=== PATIENT | male | born 1935 | race Caucasian/White ===

== ENCOUNTER 2025-04-02 21:29 | Inpatient (IN) | payer MEDICARE, BC, SELFPAY ==
[2025-04-02] VITALS (7 sets, daily range): BP systolic 117–138; BP diastolic 57–104; BMI 21.9; BMI 21.1
--- NOTE | 2025-04-02 17:03 | ED.GENMED ---
History of Present Illness
General
Chief Complaint: Change in Mental Status
Time Seen by Provider: 04/02/25 17:01
History of Present Illness
History of Present Illness:
FOCUSED PAST MEDICAL HISTORY
- The patient has history of dementia, pacemaker
REVIEW OF OLD RECORDS
- I did speak to EMS who tells me that the patient had room air sats of 89% but [facility] was more concerned about a change in mental status on top of his usual dementia. EMS placed him on 4 L/min of nasal cannula oxygen. I did review the
medication list and notes from [facility] which indicates the patient has been on Rocephin for bacteremia.
- I looked in Epic however there was no results since 2012
Note:
CHIEF COMPLAINT(S)
Lethargy and altered mental status.
HISTORY OF PRESENT ILLNESS
The patient is an 89-year-old male with a known history of dementia who was brought in by emergency medical services (EMS) for being more lethargic than usual. Per the EMS report, the patient was not previously on oxygen at his facility. Upon
arrival, his overall reduction in mental alertness was noted. The patient reportedly mentioned feeling surprised about something, although it was unclear, and no new specific symptoms were noted. He has a past medical history of heart failure and
chronic obstructive pulmonary disease (COPD). The patients oxygen saturation levels were within acceptable limits, so oxygen therapy was withheld at this time.
ADDITIONAL HISTORY OBTAINED FROM SOURCES OTHER THAN THE PATIENT
According to EMS, the patient presented as more lethargic than usual, has dementia, and was not previously on oxygen at his facility.
CHRONIC MEDICAL CONDITIONS SIGNIFICANTLY AFFECTING CARE
- Dementia
- Heart failure
- Chronic obstructive pulmonary disease (COPD)
PHYSICAL EXAM
GENERAL: The patient is chronically ill in appearance, he is tachypneic
HEENT: Moist oral mucosa
CARDIOVASCULAR: Regular rate and rhythm
PULMONARY: The patient has at least mild respiratory distress sinus tachycardia, Rales heard anteriorly more on the right
ABDOMEN: Soft and nontender with no peritoneal signs
NEUROLOGIC: The patient has evidence of dementia, not oriented to month or place, strength is equal in all extremities
EXTREMITIES: Moves all extremities equally, no tenderness, no edema
PSYCHIATRIC: Very limited historian, poor insight and judgment, virtually no spontaneous but can follow some simple commands
PROBLEM LIST
Acute Issues:
- Lethargy
- Altered mental status
Chronic Problems:
- Dementia
- Heart failure
- Chronic obstructive pulmonary disease (COPD)
PLAN
- Monitor oxygen saturation and continue to withhold supplemental oxygen for now as the patient is not in distress.
- Plan to obtain an electrocardiogram (ECG) to assess cardiac function.
- Review history for potential factors contributing to altered mental status and implement supportive care as needed.
- ABG
- Chest x-ray and also obtain cultures as patient was recently bacteremic based on group home records
DIFFERENTIAL DIAGNOSIS
The Differential Diagnosis includes, in no particular order and is not limited to:
- Acute exacerbation of chronic obstructive pulmonary disease (COPD)
- Pneumonia
- Congestive heart failure exacerbation
- Urinary tract infection
- Metabolic disturbances (e.g., electrolyte imbalance)
- Cerebral vascular accident (stroke)
- Medication side effects
- Sepsis
- Dehydration
- Progression of dementia
SUMMARY OF ENCOUNTER
The patient, an 89-year-old male with a history of dementia, heart failure, and chronic obstructive pulmonary disease, presented with increased lethargy and altered mental status. He was noted to be breathing rapidly upon arrival. Initial thoughts
were of CO2 retention due to COPD, but a blood gas sample ruled this out. A chest x-ray revealed a right-sided pleural effusion, and past medical history indicated this has been a recurrent issue, with thoracentesis previously performed. The patient
was not on strong anticoagulants currently, though he was previously on warfarin. Imaging studies including a CT scan of the brain and a chest x-ray were ordered to further assess his condition. The patient was coming from a different facility and
there was no available access to past medical records from [facility] [place]. He was evaluated to determine the next steps in management, with the potential for interventional radiology to perform a thoracentesis being considered.
DISPOSITION
Admit.
ASSESSMENT
The patient presented with rapid breathing and increased lethargy. Chest x-ray findings of a right-sided pleural effusion and history of similar issues suggest a probable need for intervention. Given his presentation and existing health conditions,
the plan is to admit the patient for further observation and management, including a possible thoracentesis by interventional radiology.
MANAGEMENT OF THE PATIENTS CARE WAS DISCUSSED WITH
Hospitalist doctor was contacted to discuss the patient�s admission and further management plan.
PLAN
The plan is to admit the patient for continued monitoring and possible thoracentesis. Consultation with interventional radiology is considered for the next day. Further evaluation of his pleural effusion and continued assessment of his overall
health status will be managed by the hospital team.
MEDICATION RECONCILIATION
The patients medication list was briefly reviewed, indicating that he was on clopidogrel and ceftriaxone via a PICC line, but not on warfarin despite previous prescriptions noted.
MEDICAL DECISION MAKING
-Complexity of Data Reviewed: Chronic conditions affecting care include dementia, heart failure, and COPD. Differentials include metabolic disturbances, medication side effects, and progression of existing conditions.
-Data:
Category 1
Clinical information was obtained from an independent historian. External records were reviewed for past medication usage and recent thoracentesis history.
Category 2
My independent interpretation of the chest x-ray noted a right-sided pleural effusion.
Category 3
Discussion of management was held with the hospitalist regarding patients admittance and potential thoracentesis.
-Risk:
Consideration of Admission/Observation: Escalation of care including admission/observation was considered given the complexity and risk of the patients presenting complaint, exam findings, and/or their underlying comorbidities. However, ultimately I
feel the patient is safe for inpatient management given the current findings and intended interventions for the pleural effusion. Prescription medication management involved ensuring no current use of warfarin that would complicate a potential
thoracentesis.
DIAGNOSIS
Right-sided pleural effusion (ICD-10: J90)
Dementia, unspecified (ICD-10: F03.90)
RADIOLOGY
- Chest x-ray shows right pleural effusion
EKG
- V paced 80
LABS
- White count normal, hemoglobin 11.1, pH 7.47/44/71/32, potassium 3.1
On reassessment, family feels that he is close to his mental status. He remains to be somewhat tachypneic which I suspect is related to pleural effusions. The right pleural effusion is larger than the left and is loculated on the right. Recommend
he stay in the hospital paracentesis as this has helped him in the past.
Phy Exam
Physical Exam
Physical Exam:
See HPI
Course
Orders/Labs/Results
Orders:
Orders
04/02/25 17:01
Venous Blood Gas Urgent
%Oxygen/Room Air: 4lpm
04/02/25 17:02
CR Chest Portable - 1 View Urgent
Comment:
Reason For Exam: alt MS hypoxia
Reason Study Needs to be Portable: Unable to Transport
04/02/25 17:06
Complete Blood Count/With Diff Urgent
Comprehensive Metabolic Panel Urgent
04/02/25 17:31
Lactic Acid Q4H
Comment: CANCEL 2nd LACTIC ACID IF 1st LACTIC ACID IS LESS THAN 2
Blood Culture Q30M
MARC Source: Blood/Venous
Specimen Description:
Blood Culture Q30M
MARC Source: Blood/Venous
Specimen Description:
04/02/25 18:06
ABG [Arterial Blood Gas] Urgent
%Oxygen/Room Air: RA
04/02/25 18:13
CT Head W/o Iv Contrast Urgent
Comment:
Reason For Exam: alt ms
Potassium Chloride Powder [Klor-Con] 40 meq PO NOW STA
04/02/25 18:14
CT Chest W/o Iv Contrast Urgent
Comment:
Reason For Exam: eval pleural effusion hypoxia
04/02/25 18:59
Alteplase [Cathflo/Activase] 2 mg INTRACATH NOW STA
04/02/25 20:09
Electrocardiogram (*1) Urgent
Reason for Study: Palpitations
EKG- Treatment ONCE
04/02/25 20:57
Admit/Transfer Patient As Directed
Co-Sign Provider:
Level of Care: Inpatient admission
Assign to:: Telemetry
Physician / Group: Tanmay
Diagnosis: Hypoxemia, Pleural Effusion
Reason for Telemetry: Arrhythmia
Date to Stop Telemetry: 04/05/25
Time to Stop Telemetry: 11:00
Reason for Hospitalization: Hypoxemia, Pleural Effusion
Expected length of stay greater than two midnights?: Yes
ELOS- Estimated Length of Stay in days: 4
I certify the patient meets the requirements for IP care: Yes
04/02/25 20:58
PRN Pain Medication Management As Directed
May give lesser potent ordered pain med per pt: Yes
preference::
Protocol:: Medication orders for pain may be administered in a
manner that supports deferring to patient preference
when the pt is:
- Requesting an ordered lesser potent pain medication.
Least to most potent pain medications are defined
as: acetaminophen < NSAID < tramadol < opioids
(morphine, oxycodone, hydromorphone).
- Requesting a lesser dose of the same medication IF
ORDERED.
- Requesting a less intrusive route of administration
if both routes are prescribed by the provider (PO <
IV).
04/02/25 21:01
Code Status As Directed
Resuscitation Status: Full Code
04/02/25 21:16
US Periph Venous UPPER Ext RT Urgent
Comment:
Reason For Exam: Asymmetric Edema
04/05/25 11:00
DC Protocol for Telemetry ONCE
Abnormal Lab Results
04/02/25 04/02/25
17:06 18:06
RBC 4.09 L 10^6/uL
(4.70-6.10)
Hgb 11.1 L g/dL
(13.0-18.0)
Hct 35.5 L %
(39.0-52.0)
MCHC 31.3 L g/dL
(33.0-37.0)
RDW 24.3 H %
(11.5-14.5)
Absolute Lymphs (auto) 1.0 L 10^3/uL
(1.2-3.4)
Lymphocytes % 16.7 L %
(20.5-51.1)
Monocytes % 9.5 H %
(1.7-9.3)
pH 7.47 H
(7.35-7.45)
pO2 71 L mmHg
(83-108)
HCO3 32.0 H mmol/L
(21-28)
Potassium 3.1 L mmol/L
(3.5-5.1)
Carbon Dioxide 32 H mmol/L
(22-30)
Glucose 114 H mg/dl
(70-99)
Total Protein 6.0 L g/dl
(6.3-8.2)
Albumin 3.1 L g/dl
(3.5-5.0)
04/02/25 17:06
04/02/25 17:06
Vital Signs
Initial and Last Documented VS:
Initial Vital Signs
Temp Pulse BP Pulse Ox
36.4 C 78 117/104 92
04/02/25 17:06 04/02/25 17:06 04/02/25 17:06 04/02/25 17:06
Last Documented Vital Signs
Temp Pulse Resp BP Pulse Ox
36.4 C 75 23 130/68 99
04/02/25 17:06 04/02/25 21:00 04/02/25 21:00 04/02/25 21:00 04/02/25 20:45
*Pulse Oximetry
Patient hypoxic: no
*Critical Care Note
Total Time (30-74mins, 75-104mins- exclusive of procedures): Not Applicable
ED Attending Note
-
Portions of this chart may have been created with voice recognition software.� Occasional wrong word or��sound alike� substitutions may have occurred due to the inherent limitations of voice recognition software.
Discharge Plan
Interventions
Interventions:
*Risk Screen - Suicide Last Done: 04/02/25 17:45
*General Assessment Last Done: 04/02/25 17:45
*Neglect/Abuse Screening Last Done: 04/02/25 17:45
*ED- Fall Risk Assessment Last Done: 04/02/25 21:15
ED- Neurological Assessment Last Done: 04/02/25 17:36
[2025-04-02 17:54] LABS: Hematocrit 35.5 % (39.0-52.0); Hemoglobin 11.1 g/dL (13.0-18.0); Mean Corp Hgb Conc. 31.3 g/dL (33.0-37.0); Mean Corpuscular Volume 86.8 fL (80.0-94.0); Nucleated Red Blood Cells % 0 % (-); Platelet Count 220 10^3/uL (130-400); Red Cell Dist. Width 24.3 % (11.5-14.5)
[2025-04-02 17:59] LABS: ALT (SGPT) 18 U/L (0-50); AST (SGOT) 48 U/L (17-59); Albumin 3.1 g/dl (3.5-5.0); Alkaline Phosphatase 61 U/L (38-126); Blood Urea Nitrogen 11 mg/dl (9-20); Calcium 8.6 mg/dl (8.4-10.2); Carbon Dioxide 32 mmol/L (22-30); Chloride 104 mmol/L (98-107); Estimated Creatinine Clearance 48 ml/min; Glucose 114 mg/dl (70-99); Potassium 3.1 mmol/L (3.5-5.1); Sodium 138 mmol/L (135-145); Total Protein 6.0 g/dl (6.3-8.2); eGFR > 60.00
[2025-04-02 18:15] LABS: B.E. 7.5 mmol/L; HCO3 32.0 mmol/L (21-28); O2 Saturation % 95.8 % (94-98); PCO2 44 mmHg (35-48); PO2 71 mmHg (83-108)
--- NOTE | 2025-04-02 18:25 | VATNOTE ---
Patient with tunneled central line in right chest. Patient unsure of where line was placed. CXR shows CVC in good position. Both lumens flush well, but unable to get blood return from either lumen. Recommend MD radha aware via TT.
[2025-04-02] MEDS: CATHFLO/ACTIVASE 2 MG INTRACATH (20:09)
--- NOTE | 2025-04-02 21:05 | HPS.HSE ---
Family Physician
-
Family Physician: Kehinde Berger
Chief Complaint
-
Lethargy, hypoxemia
History of Present Illness
Patient is an 89y M with PMH significant for ASCVD, CHF, CKD and dementia who presents to ED from local [place] for evaluation of lethargy and hypoxemia. History obtained from ED staff / patient / review of record. Patient was recently admitted at
[facility] for prolonged stay for 'bacteremia'. Daughter states that he initially presented in volume overload / CHF exacerbation and was then discovered to have bacteremia. Patient was discharged to [facility] on 03/29 on extensive
abx regimen of ampicillin 2g IV q6 and ceftriaxone 2g IV BID.
NH staff states that today he seemed more lethargic. He was noted to have SpO2 in the 80s.
CXR in the ED shows R pleural effusion.
Medical History
Past Medical History
Past Medical History: Reports Other
Additional Past Medical History:
ASCVD (CAD, Carotid Disease, PAD)
CHF - Unknown Type
Hypertension
Paroxysmal Atrial Fibrillation
CKD III
Pulmonary Fibrosis
DM-II
Senile Dementia
GERD
COPD
Past Surgical History: Reports Other
Additional Past Surgical History:
PPM / AICD (bilateral - both still in place)
Social History
Unable to obtain full social history at this time due to: Dementia
Family History
Family History: Unable to Obtain
Allergies / Home Medications
Allergies reflects when Allergies were last updated in [email or web address].
Home Medications with original date entered in [email or web address]
Allergy/Medication List:
Allergies
Allergy/AdvReac Type Severity Reaction Status Date / Time
aspirin Allergy Unknown Unknown Verified 04/02/25 17:45
bee venom protein (honey bee) Allergy Unknown Unknown Verified 04/02/25 17:45
Fish Containing Products Allergy Unknown Unknown Verified 04/02/25 17:45
linaclotide (From Linzess) Allergy Unknown Unknown Verified 04/02/25 17:45
fish derived Allergy Unknown Verified 04/02/25 17:45
fish oil Allergy Unknown Verified 04/02/25 17:45
Home Medications
acetaminophen 325 mg tablet (Tylenol) 650 mg PO Q4HPRN PRN mild pain 04/02/25
albuterol sulfate 90 mcg/actuation aerosol inhaler 2 puff inhalation R Q4HPRN PRN sob 04/02/25
ampicillin sodium 2 gram intravenous solution 2 g IV Q4H 04/02/25
bisacodyl 10 mg rectal suppository (Dulcolax (bisacodyl)) 10 mg FL DAILYPRN PRN if no bm aftr mom 04/02/25
calcium 500 mg (as carbonate)-vitamin D3 10 mcg (400 unit) tablet (Calcium 500 + D) 1 tab PO DAILY 04/02/25
carvedilol 3.125 mg tablet (Coreg) 3.125 mg PO BID 04/02/25
ceftriaxone 2 gram intravenous solution 2 g IV BID 04/02/25
clopidogrel 75 mg tablet (Plavix) 75 mg PO DAILY 04/02/25
finasteride 5 mg tablet 5 mg PO DAILY 04/02/25
furosemide 40 mg tablet (Lasix) 40 mg PO DAILY 04/02/25
lubiprostone 8 mcg capsule 8 mcg PO MOWEFR@0800,1900 04/02/25
lubiprostone 8 mcg capsule 8 mcg PO SUTUTHSA@1000 04/02/25
magnesium hydroxide 400 mg/5 mL oral suspension (Milk of Magnesia) 2,400 mg PO [id number] PRN constipation 04/02/25
menthol 0.44 %-zinc oxide 20.6 % topical ointment (Moisture Barrier Ointment) 1 applic topical TID b/l buttock 04/02/25
mirtazapine 7.5 mg tablet 7.5 mg PO HS 04/02/25
pantoprazole 40 mg tablet,delayed release (Protonix) 40 mg PO DAILY 04/02/25
rosuvastatin 20 mg tablet (Crestor) 20 mg PO HS 04/02/25
sennosides 8.6 mg tablet (senna) 17.2 mg PO DAILY 04/02/25
sodium phosphates 19 gram-7 gram/118 mL enema (Fleet Enema) 118 ml FL DAILYPRN PRN if no bm aftr dulcoalx 04/02/25
tamsulosin 0.4 mg capsule (Flomax) 0.4 mg PO HS 04/02/25
therapeutic multivitamin 1 tab PO DAILY 04/02/25
tiotropium bromide 18 mcg capsule with inhalation device 1 cap inhalation R DAILY 04/02/25
Review of Systems
-
Unable to obtain full review of systems at this time due to: Dementia
History Source: Patient
Respiratory: Reports Trouble Breathing; Denies Cough
Cardiac: Denies Chest Pain
Abdomen/GI: Denies Abdominal Pain, Nausea, Vomiting or Diarrhea
Neurological: Denies Headache
Psych: Denies Depression or Anxiety
Physical Exam
Vital Signs
Vital Signs
Temp Pulse Resp BP Pulse Ox
97.6 F 75 23 130/68 99
04/02/25 17:06 04/02/25 21:00 04/02/25 21:00 04/02/25 21:00 04/02/25 20:45
Physical Exam
General: Other (89y M with tachypnea.)
HEENT: Moist mucous membranes and PERRLA
Respiratory: Other (Decreased BS bilaterally. No wheeze / rales / rhonchi.)
Cardiac: S1/S2, Regular Rhythm and Murmur (II/ JONN)
GI: Soft, Non Tender, Non Distended and Normal Bowel Sounds
Musculoskeletal: No Clubbing, No Cyanosis and Other (Edema of the RUE specifically.)
Neuro: Awake, Alert and Nonfocal/grossly intact; No Oriented
Hematologic/Lymphatic: Other (R IJ central catheter in place.)
Laboratory Results
-
04/02/25 17:06
04/02/25 17:06
Laboratory Results
pH 7.47 (7.35-7.45) H 04/02/25 18:06
pCO2 44 mmHg (35-48) 04/02/25 18:06
pO2 71 mmHg (83-108) L 04/02/25 18:06
HCO3 32.0 mmol/L (21-28) H 04/02/25 18:06
Lactic Acid Cancelled 04/02/25 21:15
Total Bilirubin 0.6 mg/dl (0.2-1.3) 04/02/25 17:06
AST 48 U/L (17-59) 04/02/25 17:06
ALT 18 U/L (0-50) 04/02/25 17:06
Alkaline Phosphatase 61 U/L (38-126) 04/02/25 17:06
Impression/Plan
-
A/P: Patient is an 89y M with PMH significant for ASCVD, dementia, CHF and recent hospitalization for bacteremia who presents to ED from local [place] for evaluation of altered mental status and lethargy.
Acute Hypoxemic Respiratory Insufficiency
R > L Pleural Effusion
Acute on Chronic HF - Unknown Type
- Admit for further evaluation and treatment.
- Afebrile and no cough, etc.
- Supportive care / O2 support overnight.
- IR eval in AM for thoracentesis - fluid orders placed.
- Suspect effusion secondary to CHF / volume overload - but rule out parapneumonic / infected fluid with recent bacteremia, etc.
- Continue current antibiotics for now.
- IV Lasix BID and follow I/Os, daily weights, etc.
- Obtain recent records from [facility] for review - check Echo if none done during that admission.
- Follow for clinical improvement.
Bacteremia
- Unclear details of bacteremia.
- ? related to implanted cardiac devices as patient has bilateral PPM / AICD - leads and generators - in place.
- Continue current ampicillin and ceftriaxone for now.
- Obtain records / cultures from [facility] for review.
Hypokalemia
- Replaced orally in the ED. Continue potassium supplement daily and adjust as needed.
ASCVD
- Stable. No chest pain.
- Continue Plavix, statin, etc.
Paroxysmal A-Fib
- Currently in 100% paced rhythm.
- Not on OAC - though was apparently on Coumadin in the past.
- Monitor on tele.
- Obtain prior records as noted.
CKD III
- Obtain prior records for baseline SCr.
- Follow for any changes with diuresis.
DM-II
- Follow glucose and cover with SSI as needed.
- Update A1C.
BPH
- Continue current tamsulosin / finasteride.
- Bladder scan protocol.
Senile Dementia
- Awake and alert at present. Some confusion but not agitated or anxious.
- Monitor for agitation / delirium during acute hospital stay.
DVT Prophylaxis: Subcut Heparin
Code Status: Full
--- NOTE | 2025-04-02 23:38 | VATNOTE ---
cathflo instilled @ 2009 for NO blood return from either lumen. Dwelled for 1 hr and then good blood return after. Dsg changed per protocol since was due to be changed today by facility & pt was to be admitted; unsure of when PICC was inserted.
[2025-04-03] VITALS (10 sets, daily range): BP systolic 75–138; BP diastolic 44–84; PULSE 75–79; O2SAT 96; BMI 21.1; BMI 21.0
[2025-04-03] MEDS: REMERON 7.5 MG PO (00:11)
[2025-04-03] MEDS: AMPICILLIN 108 MG IV ×4 (00:12→16:43)
[2025-04-03] MEDS: FLOMAX 0.4 MG PO (00:12)
[2025-04-03] MEDS: CRESTOR 20 MG PO (00:12)
[2025-04-03 00:19] LABS: LDH 376 U/L (120-246); Total Protein 5.8 g/dl (6.3-8.2)
[2025-04-03 00:43] LABS: Glucose - Point of Care 82 mg/dl (70-99)
[2025-04-03 04:58] LABS: ALT (SGPT) 15 U/L (0-50); AST (SGOT) 36 U/L (17-59); Albumin 2.6 g/dl (3.5-5.0); Alkaline Phosphatase 58 U/L (38-126); Blood Urea Nitrogen 11 mg/dl (9-20); Calcium 8.5 mg/dl (8.4-10.2); Carbon Dioxide 32 mmol/L (22-30); Chloride 105 mmol/L (98-107); Estimated Creatinine Clearance 45 ml/min; Glucose 83 mg/dl (70-99); Magnesium 2.1 mg/dl (1.6-2.3); Potassium 3.0 mmol/L (3.5-5.1); Sodium 138 mmol/L (135-145); Total Protein 5.2 g/dl (6.3-8.2); eGFR > 60.00
[2025-04-03 05:09] LABS: Hematocrit 30.7 % (39.0-52.0); Hemoglobin 9.4 g/dL (13.0-18.0); Mean Corp Hgb Conc. 30.6 g/dL (33.0-37.0); Mean Corpuscular Volume 85.5 fL (80.0-94.0); Platelet Count 192 10^3/uL (130-400); Red Cell Dist. Width 23.9 % (11.5-14.5)
[2025-04-03 05:51] LABS: Glucose - Point of Care 72 mg/dl (70-99)
[2025-04-03 09:41] LABS: Glucose - Point of Care 103 mg/dl (70-99)
[2025-04-03] MEDS: ROCEPHIN 2000 MG IV (09:56)
[2025-04-03] MEDS: STERILE WATER FOR INJECTION 20 ML IV (09:56)
[2025-04-03] MEDS: PROTONIX 40 MG PO (09:57)
[2025-04-03] MEDS: SENOKOT 17.2 MG PO (09:57)
[2025-04-03] MEDS: PLAVIX 75 MG PO (09:57)
[2025-04-03] MEDS: PROSCAR 5 MG PO (09:58)
[2025-04-03] MEDS: KLOR-CON 20 MEQ PO (09:58)
[2025-04-03] MEDS: LASIX 40 MG IV ×2 (09:58→16:43)
[2025-04-03] MEDS: COREG 3.125 MG PO (09:58)
[2025-04-03 09:59] LABS: Glycohemoglobin (HgbA1c) 5.6 % (4.0-5.6)
[2025-04-03] MEDS: HEPARIN 5000 UNITS SC (09:59)
--- NOTE | 2025-04-03 10:31 | CON.CAR ---
Addendum entered and electronically signed by Jaertt St MD 04/03/25 15:05:
I saw and examined the patient.
The CREDIT ASSOCIATE or PA's note was reviewed and I agree with the note.
Comment: General: Well developed, well nourished in NAD.
Neck: Supple, no JVD, HJR, carotids +2 B/L, no bruits bilaterally.
Heart: Non displaced PMI, RRR, no murmurs, No S3, S4, no rubs.
Lungs: Scattered rhonchi
Extremities: No clubbing, cyanosis or edema bilaterally.
Neuro: Grossly nonfocal, awake, alert and oriented x3.
Hua has a history of dementia, CAD, PAD, CHF, pacer/ICD, hypertension, A-fib, renal sufficiency, pulmonary fibrosis, type 2 diabetes, COPD. He was admitted at [facility] recently with bacteremia and CHF. He was discharged to [facility]. He was admitted on April 02, 2025 with change in mental status and reduced pulse oximetry. In ER chest x-ray consistent with CHF with moderate right pleural effusion and also there was concern for pneumonia. Cardiology is consulted
for CHF. He is unable to give a history due to dementia
Will treat for CHF with IV Lasix. He is for thoracentesis as well. Will check echocardiogram. Try to get records from outpatient cardiology.
Original Note:
Consultation
Consultation Request
Date/Time Consultation Requested: 04/03/2025
Date/Time Consultation Performed: 04/03/2025
Requesting Provider: Dr. Coates
Performing Provider: Jessica Gupta PA-C for Dr. St
Medical History
-
History of Present Illness:
Patient is an 89-year-old male with past medical history of dementia, coronary artery disease, PAD, heart failure with unknown ejection fraction, pacemaker/ICD, hypertension, paroxysmal atrial fibrillation, chronic kidney disease, pulmonary
fibrosis, type 2 diabetes, COPD and dementia who was recently at [facility] for bacteremia and heart failure. He was discharged to [facility] 03/29/25 on antibiotic regimen of ampicillin 2g IV q6 and ceftriaxone 2g IV BID. On
04/02/2025 staff noted patient to have change in mental status, lethargy and reduced pulse oximetry prompting them to call 911. Patient arrived to emergency department on 4 L of oxygen via nasal cannula. Chest x-ray showed moderate right pleural
effusions, moderate bilateral airspace disease concerning for pneumonia and increased interstitial markings concerning for pulmonary edema. CT of chest showed moderate bilateral pleural effusions right greater than left, pulmonary fibrosis, mild
bronchiectasis. Head CT showed no acute intracranial abnormality with moderate atrophy and small vessel disease. EKG showed ventricular paced rhythm. Found to be hypokalemic with potassium of 3.1
Patient very poor historian/demented and unable to provide any meaningful history. I did reach out to his Johanna [phone] but phone went directly to [facility] and [facility] for her
PMH:
Coronary artery disease
Carotid disease
Peripheral arterial disease
Heart failure with unknown ejection fraction
Pacemaker/ICD
Hypertension
Paroxysmal atrial fibrillation
COPD
Chronic kidney disease stage III
Pulmonary fibrosis
Type 2 diabetes
Dementia
GERD
COPD
Admission March 2025 for bacteremia [facility]
Past Medical History
Past Medical History: Other (See HPI)
Past Surgical History: Cardiac (Pacemaker, defibrillator)
Social History
Tobacco: Former Smoker
Alcohol: Occasional
Drug: None
Personal:
Living: Other (Lived with until recent admission now at [facility])
Family History
Family History: Unable to Obtain
Allergies / Home Medications
Allergy/AdvReac Type Severity Reaction Status Date / Time
aspirin Allergy Unknown Unknown Verified 04/02/25 17:45
bee venom protein (honey bee) Allergy Unknown Unknown Verified 04/02/25 17:45
Fish Containing Products Allergy Unknown Unknown Verified 04/02/25 17:45
linaclotide (From Linzess) Allergy Unknown Unknown Verified 04/02/25 17:45
fish derived Allergy Unknown Verified 04/02/25 17:45
fish oil Allergy Unknown Verified 04/02/25 17:45
�Medication �Instructions �Recorded �Confirmed �Type
acetaminophen 325 mg tablet 650 mg PO Q4HPRN PRN mild pain 04/02/25 04/02/25 History
(Tylenol)
albuterol sulfate 90 mcg/actuation 2 puff inhalation R Q4HPRN PRN sob 04/02/25 04/02/25 History
aerosol inhaler
ampicillin sodium 2 gram 2 g IV Q4H Infection 04/02/25 04/02/25 History
intravenous solution
bisacodyl 10 mg rectal suppository 10 mg OR DAILYPRN PRN if no bm 04/02/25 04/02/25 History
(Dulcolax (bisacodyl)) aftr mom
calcium 500 mg (as 1 tab PO DAILY Supplement 04/02/25 04/02/25 History
carbonate)-vitamin D3 10 mcg (400
unit) tablet (Calcium 500 + D)
carvedilol 3.125 mg tablet (Coreg) 3.125 mg PO BID Blood Pressure 04/02/25 04/02/25 History
ceftriaxone 2 gram intravenous 2 g IV BID Infection 04/02/25 04/02/25 History
solution
clopidogrel 75 mg tablet (Plavix) 75 mg PO DAILY Blood Clot 04/02/25 04/02/25 History
Prevention/Tx
finasteride 5 mg tablet 5 mg PO DAILY Urinary Issue 04/02/25 04/02/25 History
furosemide 40 mg tablet (Lasix) 40 mg PO DAILY Fluid 04/02/25 04/02/25 History
Retention/Swelling
lubiprostone 8 mcg capsule 8 mcg PO MOWEFR@0800,1900 04/02/25 04/02/25 History
Gastrointestinal Issue
lubiprostone 8 mcg capsule 8 mcg PO SUTUTHSA@1000 04/02/25 04/02/25 History
Gastrointestinal Issue
magnesium hydroxide 400 mg/5 mL 2,400 mg PO [id number] PRN 04/02/25 04/02/25 History
oral suspension (Milk of Magnesia) constipation
menthol 0.44 %-zinc oxide 20.6 % 1 applic topical TID b/l buttock 04/02/25 04/02/25 History
topical ointment (Moisture Barrier
Ointment)
mirtazapine 7.5 mg tablet 7.5 mg PO HS Mental Health/Anxiety 04/02/25 04/02/25 History
pantoprazole 40 mg tablet,delayed 40 mg PO DAILY Gastrointestinal 04/02/25 04/02/25 History
release (Protonix) Issue
rosuvastatin 20 mg tablet (Crestor) 20 mg PO HS High Cholesterol 04/02/25 04/02/25 History
sennosides 8.6 mg tablet (senna) 17.2 mg PO DAILY Gastrointestinal 04/02/25 04/02/25 History
Issue
sodium phosphates 19 gram-7 118 ml OR DAILYPRN PRN if no bm 04/02/25 04/02/25 History
gram/118 mL enema (Fleet Enema) aftr dulcoalx
tamsulosin 0.4 mg capsule (Flomax) 0.4 mg PO HS Transplant 04/02/25 04/02/25 History
therapeutic multivitamin 1 tab PO DAILY Supplement 04/02/25 04/02/25 History
tiotropium bromide 18 mcg capsule 1 cap inhalation R DAILY 04/02/25 04/02/25 History
with inhalation device Lung/Breathing Issues
Review of Systems
-
Unable to obtain full review of systems at this time due to: Dementia
History Source: Coordinating Provider
Physical Exam
Vital Signs
Temp Pulse Resp BP Pulse Ox
97.5 F 82 16 138/69 98
04/03/25 08:13 04/03/25 08:13 04/03/25 08:13 04/03/25 08:13 04/03/25 08:13
GEN: No distress, awake, oriented to self only, sitting in chair on oxygen
HEENT: supple, anicteric, mmm
LUNGS: Absent breath sounds from base to mcfp up on right, absent breath sounds at left base, overall reduced breath sounds bilaterally, currently wearing 2 L of oxygen
CV: Reg, S1/S2,3/6 blowing murmur LSB/apex loudest
ABD: soft, BS+, NT/ND
EXT: No edema, clubbing or cyanosis
NEURO: Demented, only oriented to self
SKIN: No rash
Lab Results
04/03/25 04:19
04/03/25 04:19
Impression / Plan
-
Family Physician: Kehinde Berger
Impression:
Presented 04/02/2025 with change in mental status, lethargy, shortness of breath
Hypoxemia
Bilateral pleural effusions right greater than left
Possible Acute heart failure with unknown ejection fraction
Hypokalemia
Recent admission to [facility] for heart failure, bacteremia sent to [facility] 03/29/2025
Coronary artery disease
Carotid disease
Peripheral arterial disease
Heart failure with unknown ejection fraction
Pacemaker/ICD
Hypertension
Paroxysmal atrial fibrillation
Chronic kidney disease stage III
COPD
Pulmonary fibrosis
Type 2 diabetes
Dementia
GERD
COPD
Echo 04/03/2025: ordered
Plan:
Patient is an 89-year-old male who presents to [facility] ED 04/02/2025 with change in mental status, shortness of breath, lethargy from [facility]. Recent admission to [facility] for bacteremia
Hypoxemia, found to have bilateral pleural effusions right greater than left.
- Originally plan was for thoracentesis with IR today. Placed on hold as patient unable to provide consent
- Continue IV diuresis
- Currently requiring 2 L of oxygen wean as able
Chronic heart failure with unknown ejection fraction
- ProBNP 2990. Patient has decreased breath sounds bilaterally with known pleural effusions. He has no evidence of lower extremity edema. Unclear baseline weight.
- Continue diuresis IV Lasix 40 mg twice daily. Patient was on Lasix 40 mg daily prior to admission
- Would check echocardiogram
- EKG shows ventricular paced rhythm. Patient has cardiac device on both right and left upper chest. Unclear make or model
- Patient unable to provide history as to who is his maintenance helper utility engineer. Phone call has been placed to patient's , Johanna [phone] but went directly to voicemail. Left voicemail for patient's to call back
Admission to [facility] for bacteremia earlier this month. Unclear details. Per jail
- patient currently has PICC line with ongoing antibiotic regimen of regimen of ampicillin 2g IV q6 and ceftriaxone 2g IV BID.
- Obtain records from [facility]
Data Reviewed
-
EKG: Report Reviewed by me, Discussed with Physician, Discussed with Nurse and Discussed with Patient
Radiology: Report Reviewed by me, Discussed with Physician, Discussed with Nurse and Discussed with Patient
CT Scan: Report Reviewed by me, Discussed with Physician, Discussed with Nurse and Discussed with Patient
Labs: Labs Reviewed by me, Discussed with Physician, Discussed with Nurse and Discussed with Patient
Old Records: Requested ([facility])
[2025-04-03] MEDS: KCL 40 MEQ PO ×2 (10:40→16:42)
[2025-04-03 10:43] LABS: LDH 358 U/L (120-246); Total Protein 5.7 g/dl (6.3-8.2)
--- NOTE | 2025-04-03 11:49 | W.PN.HOSP.TC ---
Today's Communication/Plan
-
Diuresis. Echocardiogram. Cardio and ID eval
Assessment / Plan
Assessment / Plan
Physical exam:
General: Acutely ill
HEENT: Normocephalic, Atraumatic and Moist Mucous Membranes
Respiratory: Decreased breath sounds bilateral right more than left; Few crackles heard; Negative Wheezes or Rhonchi
Cardiac: Regular Rhythm and S1/S2. Right central access with IJ in place
GI: Soft, Nontender and Nondistended
Musculoskeletal: No Clubbing, No Cyanosis and No Edema
Neuro: Awake, Alert and Disoriented, no gross neurological deficit
Psych: Calm
A/P:
A/P: Patient is an 89y M with PMH significant for ASCVD, dementia, CHF and recent hospitalization for bacteremia who presents to ED from local [place] for evaluation of altered mental status and lethargy.
Acute Hypoxemic Respiratory Insufficiency
R > L Pleural Effusion
Acute on Chronic HF - Unknown Type
- Admit for further evaluation and treatment.
- Afebrile and no cough, etc.
- Supportive care / O2 support overnight.
- IR eval today and unable to sign consent so we will need to be postponed until we are able to get a hold of the family.
- Suspect effusion secondary to CHF / volume overload - but rule out parapneumonic / infected fluid with recent bacteremia, etc.
- Continue current antibiotics for now.
- IV Lasix BID and follow I/Os, daily weights, etc.
- Obtain recent records from [facility] for review - check Echo if none done during that admission.
- Follow for clinical improvement.
- Cardiology consulted today on 04/03
- Called 's number on records but get connected yet.
Bacteremia
- Unclear details of bacteremia.
- ? related to implanted cardiac devices as patient has bilateral PPM / AICD - leads and generators - in place.
- Continue current ampicillin and ceftriaxone for now.
- Obtain records / cultures from [facility] for review.
- ID consulted today on 04/03
Hypokalemia
- Replaced orally in the ED. Continue potassium supplement daily and adjust as needed.
- Replete orally again today.
ASCVD
- Stable. No chest pain.
- Continue Plavix, statin, etc.
Paroxysmal A-Fib
- Currently in 100% paced rhythm.
- Not on OAC - though was apparently on Coumadin in the past.
- Monitor on tele.
- Obtain prior records as noted.
CKD III
- Obtain prior records for baseline SCr.
- Follow for any changes with diuresis.
DM-II
- Follow glucose and cover with SSI as needed.
- Update A1C.
BPH
- Continue current tamsulosin / finasteride.
- Bladder scan protocol.
Senile Dementia
- Awake and alert at present. Some confusion but not agitated or anxious.
- Monitor for agitation / delirium during acute hospital stay.
DVT Prophylaxis: Subcut Heparin
Code Status: Full
Total time spent on today's encounter was 55 minutes which included time spent in counseling the patient/family regarding diagnosis and treatment plan as listed above, goals of care, and symptom management. Case was discussed with nursing staff,
specialists, and care coordinators/case management. All labs and imaging personally reviewed by me. Remainder the time spent in detailed review of previous records, lab data, imaging, and other medical provider documentation.
Anticipated Discharge: > 48 hours
Subjective/Interval History
-
Date of Service: April 03, 2025
Patient denies worsening shortness of breath. Currently on 2 L of oxygen. Afebrile. Alert but disoriented.
Objective Data
-
Labs:
Laboratory Results
04/03/25
04:19
WBC 5.0
Hgb 9.4 L
Hct 30.7 L
Plt Count 192
Sodium 138
Potassium 3.0 L
Chloride 105
Carbon Dioxide 32 H
BUN 11
Creatinine 1.0
Glucose 83
Calcium 8.5
Total Bilirubin 0.6
AST 36
ALT 15
Alkaline Phosphatase 58
Vital Signs:
Vital Signs
Temp Pulse Resp BP Pulse Ox
97.4 F 60 20 133/65 97
04/03/25 11:04 04/03/25 11:04 04/03/25 11:04 04/03/25 11:04 04/03/25 11:04
I&O
04/02/25 04/03/25 04/04/25
06:59 06:59 06:59
Intake Total 200 / 200 240 / 240
Output Total 550 / 550
Balance -350 / -350 240 / 240
[2025-04-03] MEDS: TYLENOL 650 MG PO (13:41)
[2025-04-03 13:43] LABS: Glucose - Point of Care 166 mg/dl (70-99)
--- NOTE | 2025-04-03 14:08 | CON.ID ---
Consultation
-
Date/Time Consultation Requested: April 03, 2025 [id number]
Date/Time Consultation Performed: April 03, 2025 1410
Requesting Provider: Dr. Wiley Coates
Performing Provider: Dr. Moon Hendrickson
Reason for Consultation: Bacteremia
Chief Complaint / Past History
Chief Complaint
Lethargy
History of Present Illness
History obtained from review of medical records since patient has dementia and unable to provide a meaningful history. He is a 89-year-old male with history of diabetes mellitus, CAD, ischemic cardiomyopathy status post ICD placement, pacemaker
placement who presented from intermediate facility on April 02 secondary to hypoxia and decreased mental status. Patient reportedly was recently hospitalized at [facility] with volume overload, CHF exacerbation. He was
bacteremic placed on IV ampicillin plus ceftriaxone. He was discharged to [facility] March 29. Patient noted to have increased lethargy. His pulse ox was in the 80s. Patient therefore sent to the ER. Chest x-ray showed right pleural
effusion. CT of the chest showed moderate bilateral pleural effusions, right larger than left.
Past History
Additional Past Medical History:
Dementia
Hypertension
Diabetes mellitus
CAD
Paroxysmal atrial fibrillation
CHF
Pacemaker placement
ICD placement
COPD
PAD
Pulmonary fibrosis
CKD 3
BPH
Allergy History:
aspirin Allergy (Unknown, Verified 04/02/25 17:45)
Unknown
bee venom protein (honey bee) Allergy (Unknown, Verified 04/02/25 17:45)
Unknown
Fish Containing Products Allergy (Unknown, Verified 04/02/25 17:45)
Unknown
linaclotide (From Linzess) Allergy (Unknown, Verified 04/02/25 17:45)
Unknown
fish derived Allergy (Verified 04/02/25 17:45)
Unknown
fish oil Allergy (Verified 04/02/25 17:45)
Unknown
Medications Reviewed: Yes
Current Antibiotics:
Ampicillin 2 g IV every 6 hours
Ceftriaxone 2 g IV every 12 hours
Social History
Tobacco: Former Smoker
Alcohol: None
Drug: None
Personal:
Living: Detention
Family History
Family History: Not Pertinent
Review of Systems
Review of Systems
Unable to obtain due to dementia.
Vital Signs
Temp Pulse Resp BP Pulse Ox
97.4 F 60 20 133/65 97
04/03/25 11:04 04/03/25 11:04 04/03/25 11:04 04/03/25 11:04 04/03/25 11:04
Physical Exam
Physical Exam
Constitutional: Chronically Ill
Eyes: No Conjunctival Hemorrhage and Sclera Anicteric
Cardiovascular: Regular Rate, S1/S2 and Other (PPM/ICD no erythema)
Pulmonary: Other (Decreased breathe sound at bases)
Gastrointestinal: Soft, Non Tender and Non Distended
Genito-Urinary: Negative CVA Tenderness
Extremities: Edema (BLE)
Neurological: Awake
Lines: PICC (RUE no erythema)
Lab / Diagnostic Study Results
04/03/25 04:19
04/03/25 04:19
Abs Immat Gran (auto) 0.0 10^3/uL (0-0.05) 04/02/25 17:06
Absolute Neuts (auto) 4.4 10^3/uL (1.4-6.5) 04/02/25 17:06
Absolute Lymphs (auto) 1.0 10^3/uL (1.2-3.4) L 04/02/25 17:06
Absolute Monos (auto) 0.6 10^3/uL (0.1-0.6) 04/02/25 17:06
Absolute Basos (auto) 0.0 10^3/uL (0-0.2) 04/02/25 17:06
Immature Gran % 0.3 % (0-0.5) 04/02/25 17:06
Neutrophils % 71.9 % (42.2-75.2) 04/02/25 17:06
Lymphocytes % 16.7 % (20.5-51.1) L 04/02/25 17:06
Monocytes % 9.5 % (1.7-9.3) H 04/02/25 17:06
Eosinophils % 1.3 % (0-6) 04/02/25 17:06
Basophils % 0.3 % (0-2) 04/02/25 17:06
Lactic Acid Cancelled 04/02/25 21:15
Microbiology Results
Micro:
04/03/25 00:45 MRSA Screen - Pending
Nose
04/03/25 00:37 Blood Culture - Pending
Blood/Venous
04/02/25 23:39 Blood Culture - Pending
Blood/Venous
04/02/25 17:31 Blood Culture - Pending
Blood/Venous
04/02/25 17:31 Blood Culture - Pending
Blood/Venous
04/02/25 CT chest: Moderate bilateral pleural effusions, right larger than left. Loculated on the right. Mild pulmonary fibrosis, mild bronchiectasis and moderate atelectasis versus scarring.
04/02/25 CXR: Moderate right pleural effusion. Moderate bilateral airspace disease concerning for pneumonia. Mild prominence of the central vasculature and interstitial markings concerning for pulmonary edema.
Assessment / Plan
# Bacteremia at [facility]
- Suspect Enterococcus faecalis based on current antibiotics pt receiving
- ? PPM/ICD/mentasta valve endocarditis based on current abx's
- Medical record from [facility] requested
- For TTE here
- Continue Ampicillin 2g IV q6 (renally adjusted from q4) and ceftriaxone 2g IV q12. End date unclear. Need record from outside hospital.
# Acute on chronic CHF
# Bilateral pleural effusion
- Thoracentesis today
- TTE
Conditions present on admission:
Dementia
Hypertension
Diabetes mellitus
CAD
Paroxysmal atrial fibrillation
Pacemaker placement
Ischemic cardiomyopathy s/p ICD placement
COPD
PAD
Pulmonary fibrosis
CKD 3
BPH
[2025-04-03 15:41] LABS: Body Fluid Second Tech EYM
--- NOTE | 2025-04-03 16:10 | CARDSERVLU ---
Echocardiogram with [facility] completed after protocol screening completed. Allergies verified.
Patent IV site: __L Wrist___
IV site flushed with 0.9% NaCl pre and post administration.
Diluted bolus method utilized to enhance visualization of ventricular pruitt.
Total volume given: __1.5__ mL
Patient tolerated all procedures well without complications.
[2025-04-03 17:00] LABS: Glucose - Point of Care 107 mg/dl (70-99)
[2025-04-03] MEDS: STERILE WATER FOR INJECTION IV (21:40)
[2025-04-03] MEDS: COREG PO (21:40)
[2025-04-03] MEDS: ROCEPHIN IV (21:40)
[2025-04-03] MEDS: HEPARIN SC (21:40)
--- NOTE | 2025-04-03 21:43 | PTCARENOTE ---
Despite multiple attempts patient refused nighttime medications. METAL BUILDING ASSEMBLER Anatoly Mcduffie notified. Will attempt to give medications again throughout the night
[2025-04-04] MEDS: AMPICILLIN IV (00:15)
[2025-04-04] MEDS: CRESTOR PO (02:23)
[2025-04-04] MEDS: REMERON PO (02:23)
[2025-04-04] MEDS: FLOMAX PO (02:23)
[2025-04-04 03:55] VITALS: BP 108/49
[2025-04-04] MEDS: AMPICILLIN 108 MG IV ×3 (04:27→17:19)
[2025-04-04 04:53] LABS: Hematocrit 30.5 % (39.0-52.0); Hemoglobin 9.3 g/dL (13.0-18.0); Mean Corp Hgb Conc. 30.5 g/dL (33.0-37.0); Mean Corpuscular Volume 85.4 fL (80.0-94.0); Platelet Count 198 10^3/uL (130-400); Red Cell Dist. Width 23.9 % (11.5-14.5)
[2025-04-04 05:26] LABS: Blood Urea Nitrogen 12 mg/dl (9-20); Calcium 8.5 mg/dl (8.4-10.2); Carbon Dioxide 34 mmol/L (22-30); Chloride 105 mmol/L (98-107); Estimated Creatinine Clearance 45 ml/min; Glucose 87 mg/dl (70-99); Magnesium 2.1 mg/dl (1.6-2.3); Potassium 3.2 mmol/L (3.5-5.1); Sodium 139 mmol/L (135-145); eGFR > 60.00
[2025-04-04] MEDS: STERILE WATER FOR INJECTION 20 ML IV ×2 (05:49→21:19)
[2025-04-04] MEDS: ROCEPHIN 2000 MG IV ×2 (05:50→21:19)
[2025-04-04 07:49] LABS: Anisocytosis 1+
[2025-04-04 07:50] LABS: Acanthocytes 1+
[2025-04-04 07:57] LABS: Glucose - Point of Care 87 mg/dl (70-99)
[2025-04-04 08:00] VITALS: BP 136/73
[2025-04-04] MEDS: HEPARIN 5000 UNITS SC ×2 (08:16→21:18)
[2025-04-04] MEDS: LASIX 40 MG IV ×2 (08:18→15:50)
[2025-04-04] MEDS: KLOR-CON 20 MEQ PO (08:22)
[2025-04-04] MEDS: TYLENOL 650 MG PO (08:22)
[2025-04-04] MEDS: PROTONIX 40 MG PO (08:22)
[2025-04-04] MEDS: SENOKOT 17.2 MG PO (08:23)
[2025-04-04] MEDS: PLAVIX 75 MG PO (08:24)
[2025-04-04] MEDS: COREG 3.125 MG PO ×2 (08:25→21:18)
[2025-04-04] MEDS: PROSCAR 5 MG PO (08:25)
--- NOTE | 2025-04-04 09:19 | W.PN.CARDCBS ---
Addendum entered and electronically signed by Jarett St MD 04/04/25 14:41:
I saw and examined the patient.
The FINANCIAL SECRETARY or PA's note was reviewed and I agree with the note.
Comment: General: Well developed, well nourished in NAD.
Neck: Supple, no JVD, HJR, carotids +2 B/L, no bruits bilaterally.
Heart: Non displaced PMI, RRR, no murmurs, No S3, S4, no rubs.
Lungs: Scattered rhonchi
Extremities: No clubbing, cyanosis or edema bilaterally.
Neuro: Awake but confused
He has had significant weight loss but remains on oxygen. Will continue IV Lasix. Await records to determine what type of device patient has as he is followed by [place] [facility].
Original Note:
Today's Communication / Plan
-
Ongoing diuresis
Impression / Plan
-
Family Physician: Kehinde Berger
Impression:
Presented 04/02/2025 with change in mental status, lethargy, shortness of breath
Hypoxemia
Bilateral pleural effusions right greater than left
s/p 1.5 L removed by right sided thoracentesis 04/03/2025
Acute HFrEF
EF 37%, unknown if ischemic or nonischemic and unknown chronicity
Hypokalemia
Recent admission to [facility] for heart failure, bacteremia sent to [facility] 03/29/2025
Coronary artery disease
Carotid disease
Peripheral arterial disease
Heart failure with unknown ejection fraction
Pacemaker/ICD
Hypertension
Paroxysmal atrial fibrillation
Chronic kidney disease stage III
COPD
Pulmonary fibrosis
Type 2 diabetes
Dementia
GERD
COPD
Moderate AAS with mean gradient 16 mmHg by echo 04/03/2025
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
Echo 04/03/2025: EF 37%, moderate with mean gradient 16 mmHg and ARIANNE 1.2 cm sq, mild concentric LVH, mild TR, moderate to severe MR with dense MAC
Plan:
-Patient is an 89-year-old male who presents to [facility] ED 04/02/2025 with change in mental status, shortness of breath, lethargy from [facility]. Recent admission to [facility] for bacteremia
-Weight is down 7 lbs if recorded bed scale weight is accurate. Dry weight unknown
-Patient diuresing with Lasix 40 mg IV BID. Patient was taking Lasix 40 mg PO daily prior to admission
-Patient had 1.5 L of straw-colored fluid removed during right sided thoracentesis on 04/03/2025
-EF 37% by echo 04/03/2025 along with moderate and moderate to severe MR. It is unknown what his baseline EF is, we have requested and continue to await records from his admission to [facility] 2-3 weeks ago.
-Outpatient dose of Coreg 3.125 mg BID has been continued
-Patient is not chronically on MAHESH/ARB/ARNI or aldosterone antagonist for unclear reasons. No obvious allergies, but could be due to hypotension based on current VS
-Patient has cardiac device that could be PPM, ICD or a METROLOGY SPECIALIST device, we have not been able to get a hold of records from [facility] yet. Will check device once we know with the brand is.
-Patient is at [facility] receiving IV antibiotics including ampicillin and ceftriaxone following admission with bacteremia at [facility] earlier this month. ID suspects it could be Enterococcus based on the antibiotics that are being
given and that it may involve the patient's cardiac device or valvular heart disease again based on the type of antibiotics that are currently being used. As noted above echo did not show obvious vegetation.
Progress Note - Life Educator
Subjective
Date of Service: April 04, 2025
Denies chest pain
Objective
Labs:
04/04/25 04:26
04/04/25 04:26
Labs
Hgb 9.3 g/dL (13.0-18.0) L 04/04/25 04:26
Hct 30.5 % (39.0-52.0) L 04/04/25 04:26
Plt Count 198 10^3/uL (130-400) 04/04/25 04:26
Sodium 139 mmol/L (135-145) 04/04/25 04:26
Potassium 3.2 mmol/L (3.5-5.1) L 04/04/25 04:26
BUN 12 mg/dl (9-20) 04/04/25 04:26
Creatinine 1.0 mg/dL (0.7-1.3) 04/04/25 04:26
Glucose 87 mg/dl (70-99) 04/04/25 04:26
Vital Signs and I&O:
Vital Signs
Temp Pulse Resp BP Pulse Ox
98.3 F 76 18 136/73 97
04/04/25 08:00 04/04/25 08:00 04/04/25 08:00 04/04/25 08:00 04/04/25 08:00
Vital Signs
Temp Pulse Resp BP Pulse Ox
98.3 F 76 18 136/73 97
04/04/25 08:00 04/04/25 08:00 04/04/25 08:00 04/04/25 08:00 04/04/25 08:00
Intake & Output
04/02/25 04/03/25 04/04/25 04/05/25
06:59 06:59 06:59 06:59
Intake Total 200 / 200 1536 / 1536
Output Total 550 / 550 750 / 750
Balance -350 / -350 786 / 786
Physical Exam
Physical Exam
GEN: NAD
LUNGS: RA. Decreased BS right worse than left.
CV: SR on tele
--- NOTE | 2025-04-04 09:49 | PN.CDI ---
CDI
- -
CDI:
Physician Documentation Request
Admit Date: 04/02/25 21:29
Dear Doctor Coates,
Please review the following and provide your response in the progress notes.
Clinical Indicators:
Pt admitted with CHF exacerbation
Documented per Nursing wound care note 04/02 , ' Present on admission bilateral heel pressure injury stage 1 ...treatment foams...Present on admission sacrum pressure injury stage 1 ...treatment provided silicone border..'
Physician documentation of the type and location of wounds is required for compliant documentation. Based on the above clinical findings and your assessment, please provide the following in your progress note:
1. Location of the ulcer/wound, including laterality.( FOR EACH WOUND)
2. Type (etiology) of ulcer/wound:
- Pressure (decubitus) ulcer
- Non-pressure ulcer
- Other ( please specify)
Use of terms such as suspected, likely, concern for, or probable (associated with a specific diagnosis that is being evaluated, monitored, or treated as if it exists) are acceptable and can be coded in the inpatient setting, when documented at the
time of discharge.
Thank you,
Denae Guzman RN
CDI Specialist
[place] [facility]
Please use your independent medical judgment in providing your response.
*Source: National Pressure Ulcer Advisory Panel (NPUAP)
--- NOTE | 2025-04-04 10:12 | CM ---
Addendum entered by Deedee Ferrer 04/04/25 14:46:
Patient seen in person on . Patient resting and no family at bedside. CM called to patient to review prior living arrangements, left requesting call back. Per chart review patient previously at SNF for Short term care. Patient
updated liaison at [facility] that she plans to take patient home when medically appropriate. CM will complete assessment when able to discuss with patient .
Plan; SNF; when medically appropriate.
Addendum entered by Deedee Ferrer 04/04/25 14:10:
tentatively [facility] agreed to accept patient wednesday. physician aware.
Addendum entered by Deedee Ferrer 04/04/25 12:02:
Liaison from [facility] called back with questions about status of patient, Liaison calling patient to confirm next steps.
Original Note:
CM received a call from patient requesting referral and admission to [facility]. CM spoke with liaison Miriam and referral sent via all scripts. CM will continue to follow for discharge planning needs.
[2025-04-04 10:34] LABS: Normal RBC Morphology No
--- NOTE | 2025-04-04 11:34 | W.PN.HOSP.TC ---
Addendum entered and electronically signed by Wiley Coates MD 04/04/25 15:04:
HX of CKD 3 only
Addendum entered and electronically signed by Wiley Coates MD 04/04/25 12:47:
Present on admission sacrum pressure injury stage 1
Addendum entered and electronically signed by Wiley Coates MD 04/04/25 12:47:
Present on admission bilateral heel pressure injury stage 1
Original Note:
Today's Communication/Plan
-
IV diuresis. IV Antibiotics
Assessment / Plan
Assessment / Plan
Physical exam:
General: Acutely ill
HEENT: Normocephalic, Atraumatic and Moist Mucous Membranes
Respiratory: Decreased breath sounds bilaterally; Negative Wheezes, Rales or Rhonchi
Cardiac: Regular Rhythm and S1/S2, systolic murmur
GI: Soft, Nontender and Nondistended
Musculoskeletal: No Clubbing, No Cyanosis and No Edema
Neuro: Awake, Alert and Disoriented, no neurological deficit
Psych: Limited judgment and insight
A/P:
Acute systolic congestive heart failure/ Moderate aortic stenosis and moderate to severe mitral valve regurgitation and mild tricuspid regurgitation:
Continue IV Lasix 40 mg twice a day
Reviewed echocardiogram
Requesting old medical records
BNP over 2990
GDMT--> on carvedilol only 3.125 mg twice a day. Defer to cardiology other GDMT medications.
Cardiology consult appreciated
Update TSH in a.m.
Hemoglobin A1c 5.6
Discussed with over the phone today
PT OT eval
Hypokalemia:
Replete and trend
Acute respiratory insufficiency:
Diuresis
Oxygen supplementation as needed
Bacteremia:
On IV ampicillin and ceftriaxone
ID consult appreciated
Bilateral pleural effusions R>L:
Status post right thoracentesis on 04/03
Metabolic encephalopathy, POA:
Likely multifactorial including delirium, recent hospitalizations, infection, heart failure.
Blood gas with no hypercapnia
CT of the head no acute intracranial abnormalities
Continue to monitor mental status and behavior
Paroxysmal A-fib:
Continue beta-blockers
Not on anticoagulation
PPM in place
COPD:
Bronchodilators as needed
CAD/PVD:
On antiplatelets and statins
Hypertension:
Continue current antihypertensive
Hyperlipidemia:
Continue statin
Dementia Alzheimer's type:
Continue to monitor mental status and behavior
GERD:
On PPI
BPH:
On Flomax and finasteride
DVT prophylaxis:
Heparin SQ
CODE STATUS:
Full code
Total time spent on today's encounter was 55 minutes which included time spent in counseling the patient/family regarding diagnosis and treatment plan as listed above, goals of care, and symptom management. Case was discussed with nursing staff,
specialists, and care coordinators/case management. All labs and imaging personally reviewed by me. Remainder the time spent in detailed review of previous records, lab data, imaging, and other medical provider documentation.
Anticipated Discharge: 24 - 48 hours
Subjective/Interval History
-
Date of Service: April 04, 2025
Patient still short of breath and required supplemental oxygen. No chest pain. Afebrile
Objective Data
-
Labs:
Laboratory Results
04/04/25
04:26
WBC 6.0
Hgb 9.3 L
Hct 30.5 L
Plt Count 198
Sodium 139
Potassium 3.2 L
Chloride 105
Carbon Dioxide 34 H
BUN 12
Creatinine 1.0
Glucose 87
Calcium 8.5
Vital Signs:
Vital Signs
Temp Pulse Resp BP Pulse Ox
98.3 F 76 18 136/73 97
04/04/25 08:00 04/04/25 08:00 04/04/25 08:00 04/04/25 08:00 04/04/25 08:00
I&O
04/03/25 04/04/25 04/05/25
06:59 06:59 06:59
Intake Total 200 / 200 1536 / 1536
Output Total 550 / 550 750 / 750
Balance -350 / -350 786 / 786
[2025-04-04 12:10] VITALS: BP 96/44
[2025-04-04 12:16] LABS: Glucose - Point of Care 103 mg/dl (70-99)
--- NOTE | 2025-04-04 12:18 | W.PN.ID1 ---
Date of Service
Date of Service: April 04, 2025
Today's Communication
Awaiting outside records.
Continue Amp/ceftriaxone.
Assessment / Plan
# Bacteremia at [facility]
- Suspect Enterococcus faecalis based on current antibiotics pt receiving
- ? PPM/ICD/[place] valve endocarditis based on current abx's
- Awaiting Medical record from [facility]
- TTE pending
- Continue Ampicillin 2g IV q6 (renally adjusted from q4) and ceftriaxone 2g IV q12. End date unclear. Need record from outside hospital.
# Acute on chronic CHF
# Bilateral pleural effusion
- 04/03 s/p R thoracentesis 1500cc straw colored fluid -> transudate.
Conditions present on admission:
Dementia
Hypertension
Diabetes mellitus
CAD
Paroxysmal atrial fibrillation
Pacemaker placement
Ischemic cardiomyopathy s/p ICD placement
COPD
PAD
Pulmonary fibrosis
CKD 3
BPH
Chief Complaint
-: Bacteremia
Subjective / Review of Systems
c/o MOONEY left greater than right.
Vital Signs / Physical Exam
Vital Signs
Vital Signs
Temp Pulse Resp BP Pulse Ox
97.6 F 89 18 96/44 95
04/04/25 12:10 04/04/25 12:10 04/04/25 08:00 04/04/25 12:10 04/04/25 12:10
Physical Exam
Constitutional: Chronically Ill
Cardiovascular: Regular Rate, S1/S2 and Other (bilateral chest wall PPM and AICD sites no erythema)
Pulmonary: Rales (bases)
Gastrointestinal: Soft, Non Tender, Non Distended and Normal Bowel Sounds
Neurological: Awake; Negative Meningeal Signs
Lines: PICC (RIJ tunneled double lumen PICC - no erythema)
Objective Data
Lab Data
Lab Results
04/04/25 04:26
04/04/25 04:26
Estimated Creat Clear 45 ml/min 04/04/25 04:26
Lactic Acid Cancelled 04/02/25 21:15
Total Bilirubin 0.6 mg/dl (0.2-1.3) 04/03/25 04:19
AST 36 U/L (17-59) 04/03/25 04:19
ALT 15 U/L (0-50) 04/03/25 04:19
Alkaline Phosphatase 58 U/L (38-126) 04/03/25 04:19
Most recent labs reviewed.
Micro Results:
04/03/25 14:52 Body Fluid Culture - Preliminary
Pleural Fluid No Growth After 18-24 Hours
Gram Stain - Preliminary
04/03/25 00:45 MRSA Screen - Final
Nose No Methicillin Resistant Staphylococcus aureus isolated.
04/03/25 00:37 Blood Culture - Preliminary
Blood/Venous No Growth in 24 hours- Final report to follow
04/02/25 23:39 Blood Culture - Preliminary
Blood/Venous No Growth in 24 hours- Final report to follow
04/02/25 17:31 Blood Culture - Preliminary
Blood/Venous No Growth in 24 hours- Final report to follow
04/02/25 17:31 Blood Culture - Preliminary
Blood/Venous No Growth in 24 hours- Final report to follow
04/02/25 CT chest: Moderate bilateral pleural effusions, right larger than left. Loculated on the right. Mild pulmonary fibrosis, mild bronchiectasis and moderate atelectasis versus scarring.
04/02/25 CXR: Moderate right pleural effusion. Moderate bilateral airspace disease concerning for pneumonia. Mild prominence of the central vasculature and interstitial markings concerning for pulmonary edema.
[2025-04-04 14:49] LABS: Nucleated Red Blood Cells % 0 % (-)
--- NOTE | 2025-04-04 14:50 | PN.CDI ---
CDI
- -
CDI:
Physician Documentation Request
Admit Date: 04/02/25 21:29
Dear Doctor Aminata,
Please review the following and provide your response in the progress notes.
Clinical Indicators:
Pt admitted with Acute systolic CHF
Documented in 04/03 progress note, ' CKD III Obtain prior records for baseline SCr....'
Renal function as below
Laboratory Tests
04/02/25 04/03/25 04/04/25
17:06 04:19 04:26
Creatinine 1.0 1.0 1.0
eGFR > 60.00 > 60.00 > 60.00
Please provide a diagnosis for the above renal functions/findings:
HX of CKD 3 only
CKD 3
CKD stage 2
Other ( please specify)
Stages of Chronic Kidney Disease*
Level Description GFR
G1 Normal or High >90
G2 Mildly decreased 60-89
G3a Mildly to moderately decreased 45-59
G3b Moderately to severely decreased 30-44
G4 Severely decreased 15-29
G5 Kidney failure <15
Use of terms such as suspected, likely, concern for, or probable (associated with a specific diagnosis that is being evaluated, monitored, or treated as if it exists) are acceptable and can be coded in the inpatient setting, when documented at the
time of discharge.
Thank you,
Denae Guzman RN
CDI Specialist
[place] Text
Please use your independent medical judgment in providing your response.
*Source: Kidney Disease: Improving Global Outcomes (KDIGO) 2012
[2025-04-04 15:59] VITALS: BP 110/52
[2025-04-04 17:02] LABS: Glucose - Point of Care 102 mg/dl (70-99)
[2025-04-04 20:13] VITALS: BP 110/78
[2025-04-04] MEDS: FLOMAX 0.4 MG PO (21:17)
[2025-04-04] MEDS: CRESTOR 20 MG PO (21:17)
[2025-04-04] MEDS: REMERON 7.5 MG PO (21:17)
[2025-04-04 21:55] LABS: Glucose - Point of Care 107 mg/dl (70-99)
[2025-04-04 23:31] VITALS: BP 106/51
[2025-04-05] VITALS (8 sets, daily range): BP systolic 95–137; BP diastolic 40–108; PULSE 78; O2SAT 99; BMI 20.2
[2025-04-05] MEDS: AMPICILLIN 108 MG IV ×4 (00:40→18:02)
[2025-04-05 04:16] LABS: Hematocrit 28.5 % (39.0-52.0); Hemoglobin 9.0 g/dL (13.0-18.0); Mean Corp Hgb Conc. 31.6 g/dL (33.0-37.0); Mean Corpuscular Volume 85.6 fL (80.0-94.0); Platelet Count 159 10^3/uL (130-400); Red Cell Dist. Width 23.7 % (11.5-14.5)
[2025-04-05 04:24] LABS: Nucleated Red Blood Cells % 0 % (-)
[2025-04-05 04:35] LABS: Blood Urea Nitrogen 14 mg/dl (9-20); Calcium 8.5 mg/dl (8.4-10.2); Carbon Dioxide 34 mmol/L (22-30); Chloride 103 mmol/L (98-107); Estimated Creatinine Clearance 39 ml/min; Glucose 99 mg/dl (70-99); Magnesium 2.1 mg/dl (1.6-2.3); Potassium 3.0 mmol/L (3.5-5.1); Sodium 138 mmol/L (135-145); eGFR > 60.00
[2025-04-05] MEDS: LASIX 40 MG IV ×2 (08:00→15:14)
[2025-04-05] MEDS: STERILE WATER FOR INJECTION 20 ML IV ×2 (08:00→19:44)
[2025-04-05] MEDS: HEPARIN 5000 UNITS SC ×2 (08:00→19:40)
[2025-04-05] MEDS: ROCEPHIN 2000 MG IV ×2 (08:00→19:45)
[2025-04-05] MEDS: PLAVIX 75 MG PO (08:03)
[2025-04-05] MEDS: PROTONIX 40 MG PO (08:03)
[2025-04-05] MEDS: SENOKOT 17.2 MG PO (08:03)
[2025-04-05] MEDS: PROSCAR 5 MG PO (08:03)
[2025-04-05] MEDS: COREG 3.125 MG PO ×2 (08:04→19:41)
[2025-04-05] MEDS: KLOR-CON 20 MEQ PO (08:05)
[2025-04-05 08:32] LABS: Glucose - Point of Care 81 mg/dl (70-99)
--- NOTE | 2025-04-05 10:51 | W.PN.HOSP.TC ---
Today's Communication/Plan
-
Diuresis. Antibiotics
Assessment / Plan
Assessment / Plan
Physical exam:
General: Acutely ill
HEENT: Normocephalic, Atraumatic and Moist Mucous Membranes
Respiratory: Decreased breath sounds bilaterally; Negative Wheezes, Rales or Rhonchi
Cardiac: Regular Rhythm and S1/S2, systolic murmur
GI: Soft, Nontender and Nondistended
Musculoskeletal: No Clubbing, No Cyanosis and No Edema
Neuro: Awake, Alert and Disoriented, no neurological deficit
Psych: Limited judgment and insight
A/P:
Acute systolic congestive heart failure/ Moderate aortic stenosis and moderate to severe mitral valve regurgitation and mild tricuspid regurgitation:
Continue IV Lasix 40 mg twice a day and will transition to oral tomorrow
Reviewed echocardiogram
Requesting old medical records
BNP over 2990
GDMT--> on carvedilol only 3.125 mg twice a day. Defer to cardiology other GDMT medications.
Cardiology consult appreciated
Update TSH and came back normal limits at 1.61
Hemoglobin A1c 5.6
Discussed with over the phone yesterday
PT OT eval
Hypokalemia:
Replete and trend
Acute respiratory insufficiency:
Diuresis
Oxygen supplementation as needed
E faecalis bacteremia:
On IV ampicillin and ceftriaxone-->through 04/15
No gross vegetations
ID consult appreciated
Bilateral pleural effusions R>L:
Status post right thoracentesis on 04/03
Metabolic encephalopathy, POA:
Likely multifactorial including delirium, recent hospitalizations, infection, heart failure.
Blood gas with no hypercapnia
CT of the head no acute intracranial abnormalities
Continue to monitor mental status and behavior
Paroxysmal A-fib:
Continue beta-blockers
Not on anticoagulation
PPM in place
COPD:
Bronchodilators as needed
CAD/PVD:
On antiplatelets and statins
Hypertension:
Continue current antihypertensive
Hyperlipidemia:
Continue statin
Dementia Alzheimer's type:
Continue to monitor mental status and behavior
GERD:
On PPI
BPH:
On Flomax and finasteride
DVT prophylaxis:
Heparin SQ
CODE STATUS:
Full code
Time spent 35 minutes
Anticipated Discharge: Within 24 hours
Subjective/Interval History
-
Date of Service: April 05, 2025
Patient feels less short of breath. Still on supplemental oxygen. Afebrile
Objective Data
-
Labs:
Laboratory Results
04/05/25 04/05/25
03:52 03:53
WBC 5.4
Hgb 9.0 L
Hct 28.5 L
Plt Count 159
Sodium 138
Potassium 3.0 L
Chloride 103
Carbon Dioxide 34 H
BUN 14
Creatinine 1.1
Glucose 99
Calcium 8.5
Vital Signs:
Vital Signs
Temp Pulse Resp BP Pulse Ox
97.4 F 76 18 115/58 95
04/05/25 07:40 04/05/25 07:40 04/05/25 07:40 04/05/25 07:40 04/05/25 07:40
I&O
04/04/25 04/05/25 04/06/25
06:59 06:59 06:59
Intake Total 1536 / 1536 1176 / 1176
Output Total 750 / 750 550 / 550
Balance 786 / 786 626 / 626
[2025-04-05] MEDS: KCL 40 MEQ PO ×2 (10:59→15:14)
--- NOTE | 2025-04-05 11:05 | W.PN.ID1 ---
Date of Service
Date of Service: April 05, 2025
Today's Communication
- Continue Ampicillin 2g IV q6 and ceftriaxone 2g IV q12 through 04/15/25.
Assessment / Plan
# E. faecalis bacteremia at [facility]
- Still awaiting Medical record from [facility]
- I called Infectious Disease Office at [facility] and requested last progress note from ID.
Records reviewed and placed in patient's paper chart.
Admitted to hospital 03/03/25 with SOB, moderate to large bilateral pleural effusion s s/p IR-guided R thoracentesis -> cx neg
Admission blood cultures x 2: Enterococcus faecalis bacteremia.
Source of bacteremia unclear. 03/09/25 ZA no vegetations on valves nor cardiac device wires. CT a/p; cholelithiasis without cholecystitis.
ID recommended ampicillin 2gIV q6h and ceftriaxone 2g IV q12h x 6 weeks , stop date 04/16/25.
- TTE here no gross vege, EF 37%, mod to severe regurgitation.
- Continue Ampicillin 2g IV q6 and ceftriaxone 2g IV q12 through 04/15/25.
- Follow-up with ID group at [facility].
# Acute on chronic CHF
# Bilateral pleural effusion
- 04/03 s/p R thoracentesis 1500cc straw colored fluid -> transudate.
Cx negative.
Conditions present on admission:
Dementia
Hypertension
Diabetes mellitus
CAD
Paroxysmal atrial fibrillation
Pacemaker placement
Ischemic cardiomyopathy s/p ICD placement
COPD
PAD
Pulmonary fibrosis
CKD 3
BPH
Chief Complaint
-: Bacteremia
Vital Signs / Physical Exam
Vital Signs
Vital Signs
Temp Pulse Resp BP Pulse Ox
97.4 F 76 18 115/58 95
04/05/25 07:40 04/05/25 07:40 04/05/25 07:40 04/05/25 07:40 04/05/25 07:40
Physical Exam
Constitutional: Chronically Ill
Cardiovascular: Regular Rate, S1/S2 and Other (bilateral chest wall PPM and AICD sites no erythema)
Pulmonary: Rales (bases)
Gastrointestinal: Soft, Non Tender, Non Distended and Normal Bowel Sounds
Neurological: Awake; Negative Meningeal Signs
Lines: PICC (RIJ tunneled double lumen PICC - no erythema)
Objective Data
Lab Data
Lab Results
04/05/25 03:53
Estimated Creat Clear 39 ml/min 04/05/25 03:52
Lactic Acid Cancelled 04/02/25 21:15
Total Bilirubin 0.6 mg/dl (0.2-1.3) 04/03/25 04:19
AST 36 U/L (17-59) 04/03/25 04:19
ALT 15 U/L (0-50) 04/03/25 04:19
Alkaline Phosphatase 58 U/L (38-126) 04/03/25 04:19
Most recent labs reviewed.
Micro Results:
04/03/25 14:52 Body Fluid Culture - Preliminary
Pleural Fluid No Growth After 48 Hours
Gram Stain - Preliminary
04/03/25 00:37 Blood Culture - Preliminary
Blood/Venous No Growth in 48 hours- Final report to follow
04/02/25 23:39 Blood Culture - Preliminary
Blood/Venous No Growth in 48 hours- Final report to follow
04/02/25 17:31 Blood Culture - Preliminary
Blood/Venous No Growth in 48 hours- Final report to follow
04/02/25 17:31 Blood Culture - Preliminary
Blood/Venous No Growth in 48 hours- Final report to follow
04/03/25 00:45 MRSA Screen - Final
Nose No Methicillin Resistant Staphylococcus aureus isolated.
04/02/25 CT chest: Moderate bilateral pleural effusions, right larger than left. Loculated on the right. Mild pulmonary fibrosis, mild bronchiectasis and moderate atelectasis versus scarring.
04/02/25 CXR: Moderate right pleural effusion. Moderate bilateral airspace disease concerning for pneumonia. Mild prominence of the central vasculature and interstitial markings concerning for pulmonary edema.
Care Review
Plan reviewed with: Physician (Dr. Coates)
[2025-04-05 12:20] LABS: Glucose - Point of Care 136 mg/dl (70-99)
--- NOTE | 2025-04-05 12:25 | W.PN.CARDCBS ---
Addendum entered and electronically signed by Juan Pablo Smith DO 04/05/25 13:22:
I saw and examined the patient.
The Sales Effectiveness Manager's note was reviewed and I agree with the note.
Comment:
Plan:
Continue IV diuresis likely transition to oral lasix next 24 hrs
1.5 L out with right thoracentesis Apr 03
Dry wt unknown
Await records
Device interrogation once company is known.
Recent admission to [facility] for heart failure, bacteremia sent to [facility] 03/29/2025
Discussed with nursing.
Original Note:
Today's Communication / Plan
-
Ongoing diuresis
Check device once we figure out company, cardiology is checking with the major device companies
Impression / Plan
-
Family Physician: Kehinde Berger
Impression:
Presented 04/02/2025 with change in mental status, lethargy, shortness of breath
Hypoxemia
Bilateral pleural effusions right greater than left
s/p 1.5 L removed by right sided thoracentesis 04/03/2025
Acute HFrEF
EF 37%, unknown if ischemic or nonischemic and unknown chronicity
Hypokalemia
Recent admission to [facility] for heart failure, bacteremia sent to [facility] 03/29/2025
Coronary artery disease
Carotid disease
Peripheral arterial disease
Heart failure with unknown ejection fraction
Pacemaker/ICD
Hypertension
Paroxysmal atrial fibrillation
Chronic kidney disease stage III
COPD
Pulmonary fibrosis
Type 2 diabetes
Dementia
GERD
COPD
Moderate with mean gradient 16 mmHg by echo 04/03/2025
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
Hypokalemia
Echo 04/03/2025: EF 37%, moderate with mean gradient 16 mmHg and ARIANNE 1.2 cm sq, mild concentric LVH, mild TR, moderate to severe MR with dense MAC
Plan:
-Patient presented to [facility] ED 04/02/2025 with change in mental status, shortness of breath, lethargy from [facility]. Recent admission to [facility] for bacteremia
-Weight is up 2 lbs if recorded bed scale weight is accurate. Dry weight unknown
-Patient diuresing with Lasix 40 mg IV BID. Patient was taking Lasix 40 mg PO daily prior to admission
-Cre stable at 1.1 on labs reviewed by me 04/05/2025
-Potassium down to 3.09 2525 and KCl 40 meq every 4 hours has been ordered by hospitalist attending
-Patient had 1.5 L of straw-colored fluid removed during right sided thoracentesis on 04/03/2025
-EF 37% by echo 04/03/2025 along with moderate and moderate to severe MR. It is unknown what his baseline EF is, we have requested and continue to await records from his admission to [facility] 2-3 weeks ago.
-Outpatient dose of Coreg 3.125 mg BID has been continued
-Patient is not chronically on MAHESH/ARB/ARNI or aldosterone antagonist for unclear reasons. No obvious allergies, but could be due to hypotension
-Cardiology is inquiring with device companies to see what kind of device patient has, no records have come from [facility] yet
-Patient is at [facility] receiving IV antibiotics including ampicillin and ceftriaxone following admission with bacteremia at [facility] earlier this month. ID suspects it could be Enterococcus based on the antibiotics that are being
given and that it may involve the patient's cardiac device or valvular heart disease again based on the type of antibiotics that are currently being used. As noted above echo did not show obvious vegetation.
Progress Note - Production Broacher
Subjective
Date of Service: April 05, 2025
Remains hypoxic on 2 L
Objective
Labs:
04/05/25 03:53
Labs
Hgb 9.0 g/dL (13.0-18.0) L 04/05/25 03:53
Hct 28.5 % (39.0-52.0) L 04/05/25 03:53
Plt Count 159 10^3/uL (130-400) 04/05/25 03:53
Sodium 138 mmol/L (135-145) 04/05/25 03:52
Potassium 3.0 mmol/L (3.5-5.1) L 04/05/25 03:52
BUN 14 mg/dl (9-20) 04/05/25 03:52
Creatinine 1.1 mg/dL (0.7-1.3) 04/05/25 03:52
Glucose 99 mg/dl (70-99) 04/05/25 03:52
Vital Signs and I&O:
Vital Signs
Temp Pulse Resp BP Pulse Ox
97.4 F 76 18 115/58 95
04/05/25 11:40 04/05/25 11:40 04/05/25 11:40 04/05/25 11:40 04/05/25 11:40
Vital Signs
Temp Pulse Resp BP Pulse Ox
97.4 F 76 18 115/58 95
04/05/25 11:40 04/05/25 11:40 04/05/25 11:40 04/05/25 11:40 04/05/25 11:40
Intake & Output
04/03/25 04/04/25 04/05/25 04/06/25
06:59 06:59 06:59 06:59
Intake Total 200 / 200 1536 / 1536 1176 / 1176
Output Total 550 / 550 750 / 750 550 / 550
Balance -350 / -350 786 / 786 626 / 626
Physical Exam
Physical Exam
GEN: NAD
LUNGS: 2 L NC. No wheeze
CV: SR on tele
[2025-04-05 17:26] LABS: Glucose - Point of Care 107 mg/dl (70-99)
[2025-04-05 20:55] LABS: Glucose - Point of Care 73 mg/dl (70-99)
[2025-04-05] MEDS: FLOMAX 0.4 MG PO (22:35)
[2025-04-05] MEDS: CRESTOR 20 MG PO (22:35)
[2025-04-05] MEDS: REMERON 7.5 MG PO (22:35)
[2025-04-06] MEDS: AMPICILLIN 108 MG IV ×3 (00:35→12:09)
[2025-04-06 05:07] LABS: Hematocrit 28.5 % (39.0-52.0); Hemoglobin 8.9 g/dL (13.0-18.0); Mean Corp Hgb Conc. 31.2 g/dL (33.0-37.0); Mean Corpuscular Volume 85.1 fL (80.0-94.0); Platelet Count 167 10^3/uL (130-400); Red Cell Dist. Width 23.8 % (11.5-14.5)
[2025-04-06 05:22] LABS: Blood Urea Nitrogen 12 mg/dl (9-20); Calcium 8.3 mg/dl (8.4-10.2); Carbon Dioxide 34 mmol/L (22-30); Chloride 102 mmol/L (98-107); Estimated Creatinine Clearance 44 ml/min; Glucose 77 mg/dl (70-99); Potassium 3.1 mmol/L (3.5-5.1); Sodium 138 mmol/L (135-145); eGFR > 60.00
[2025-04-06 06:00] VITALS: BMI 20.6
[2025-04-06 07:35] VITALS: BP 95/40
[2025-04-06 08:14] LABS: Glucose - Point of Care 76 mg/dl (70-99)
[2025-04-06] MEDS: KCL 160 MEQ IV (08:15)
[2025-04-06] MEDS: SENOKOT 17.2 MG PO (08:15)
[2025-04-06] MEDS: PROSCAR 5 MG PO (08:15)
[2025-04-06] MEDS: PLAVIX 75 MG PO (08:15)
[2025-04-06] MEDS: HEPARIN 5000 UNITS SC (08:15)
[2025-04-06] MEDS: COREG PO (08:15)
[2025-04-06] MEDS: PROTONIX 40 MG PO (08:15)
[2025-04-06] MEDS: STERILE WATER FOR INJECTION 20 ML IV (08:15)
[2025-04-06] MEDS: LASIX 40 MG IV (08:15)
[2025-04-06] MEDS: ROCEPHIN 2000 MG IV (08:15)
[2025-04-06] MEDS: KCL 40 MEQ PO (08:20)
[2025-04-06] MEDS: KLOR-CON PO (08:20)
--- NOTE | 2025-04-06 10:02 | CM ---
received script for IV antibiotics from Dr. Hendrickson
spoke with Miriam [phone] from [facility] & updated and faxed script to her at [phone]
placed copy in chart
per hospitalist patient stable for discharge today
Miriam request 3 pm transport to [facility]
IMM explained to & in chart
agreeable and understands short term rehab
plan: [facility], with IV abx
Report #: [phone] ext [phone]

transportation forms on chart, facility request 3pm transport
--- NOTE | 2025-04-06 10:56 | W.PN.HOSP.TC ---
Today's Communication/Plan
-
Discharge planning today
Assessment / Plan
Assessment / Plan
Physical exam:
General: No acute distress
HEENT: Normocephalic, Atraumatic and Moist Mucous Membranes
Respiratory: Decreased breath sounds bilaterally; Negative Wheezes, Rales or Rhonchi
Cardiac: Regular Rhythm and S1/S2, systolic murmur
GI: Soft, Nontender and Nondistended
Musculoskeletal: No Clubbing, No Cyanosis and No Edema
Neuro: Awake, Alert and Disoriented, no neurological deficit
Psych: Limited judgment and insight
A/P:
Acute systolic congestive heart failure/ Moderate aortic stenosis and moderate to severe mitral valve regurgitation and mild tricuspid regurgitation:
Changed to oral diuretic today
Reviewed echocardiogram
Requesting old medical records but can be follow-up as outpatient by cardiology
BNP over 2990
GDMT--> on carvedilol only 3.125 mg twice a day. Defer to cardiology other GDMT medications.
Cardiology consult appreciated
Update TSH and came back normal limits at 1.61
Hemoglobin A1c 5.6
Discussed with over the phone yesterday
PT OT eval
Hypokalemia:
Replete and trend
Acute respiratory insufficiency:
Diuresis
Oxygen supplementation as needed
E faecalis bacteremia:
On IV ampicillin and ceftriaxone-->through 04/15
No gross vegetations
ID consult appreciated
ID cleared him for discharge
Bilateral pleural effusions R>L:
Status post right thoracentesis on 04/03
Metabolic encephalopathy, POA:
Likely multifactorial including delirium, recent hospitalizations, infection, heart failure.
Blood gas with no hypercapnia
CT of the head no acute intracranial abnormalities
Continue to monitor mental status and behavior
Paroxysmal A-fib:
Continue beta-blockers
Not on anticoagulation
PPM in place
COPD:
Bronchodilators as needed
CAD/PVD:
On antiplatelets and statins
Hypertension:
Continue current antihypertensive
Hyperlipidemia:
Continue statin
Dementia Alzheimer's type:
Continue to monitor mental status and behavior
GERD:
On PPI
BPH:
On Flomax and finasteride
DVT prophylaxis:
Heparin SQ
CODE STATUS:
Full code
Anticipated Discharge: Today
Subjective/Interval History
-
Date of Service: April 06, 2025
Patient feels well today.
Objective Data
-
Labs:
Laboratory Results
04/06/25
04:33
WBC 5.0
Hgb 8.9 L
Hct 28.5 L
Plt Count 167
Sodium 138
Potassium 3.1 L
Chloride 102
Carbon Dioxide 34 H
BUN 12
Creatinine 1.0
Glucose 77
Calcium 8.3 L
Vital Signs:
Vital Signs
Temp Pulse Resp BP Pulse Ox
98.0 F 75 18 98/40 95
04/06/25 07:35 04/06/25 07:35 04/06/25 07:35 04/06/25 08:15 04/06/25 07:35
I&O
04/05/25 04/06/25 04/07/25
06:59 06:59 06:59
Intake Total 1176 / 1176 1200 / 1200
Output Total 550 / 550
Balance 626 / 626 1200 / 1200
--- NOTE | 2025-04-06 11:02 | W.DCSUMMARY ---
Discharge Summary
Discharge Data
Date of Admission: 04/02/25
Date of Discharge: 04/06/25
Total time spent discharging patient (in min): 37
-
Pending Results: No
Hospital Course
Patient 89 years old male with history of A-fib callus bacteremia with recent admission at [facility] for heart failure and bacteremia, CAD, PVD, hypertension, A-fib, CKD, COPD, dementia, came into the hospital with shortness of
breath and mental status changes. Patient was found to be in heart failure exacerbation. Cardiology consulted. He was aggressively diuresed. He had a right thoracentesis for pleural effusion. His EF noted to be 37% but unknown if ischemic or
nonischemic and unknown chronicity so cardiology will continue to obtain records as outpatient. Patient was diuresed appropriately and his diuretics switched to oral. He is weight upon admission was 67 kg and his weight upon discharge is 59-61 kg.
His renal function remained stable. His potassium has been low but ongoing replacement and he will be kept on potassium replacement and follow-up BMP as outpatient. Of note, his magnesium has been normal. Patient GDMT regimen will need to be
readdressed as outpatient. He does have some relative hypotension so that might have limited this regimen. Patient a mild downtrend oh his hemoglobin but no signs of active GI bleed. Hemoglobin needs to continue to be monitored as outpatient and
have him see GI for routine evaluation when appropriate as outpatient. ID also saw the patient during this hospital stay and recommended to continue IV ampicillin and IV ceftriaxone through 04/15/20202024 as established prior to admission. No gross
vegetations on transthoracic echocardiogram during this hospital stay. Patient will be discharged to skilled facility today.
Discharge duration: 37 minutes
Discharge Plan
-
Patient Disposition: Jail/SNF
Discharge Diagnosis/Procedures: Acute systolic congestive heart failure. Hypokalemia. Enterococcus faecalis bacteremia. Bilateral pleural effusions.
Diet: Low Cholesterol, Low Sodium and Restrict fluids to 64 oz
Activity: As tolerated
Blood Work: Please PCP to order CBC, BMP within 1 week
Specialty Instructions: Weigh Daily- Call MD for wt gain/loss 3 lbs overnight/5 lbs in 1 week
Referrals:
Kehinde Berger DO [Family Provider, Internal Medicine] - in less than [address] MD [Active, Cardiology] - in two to four weeks
Prescriptions:
New
furosemide 40 mg Tablet
40 mg PO BID AT 0800,1600 30 Days Qty: 60 0RF
Continued
sennosides [senna] 8.6 mg Tablet
17.2 mg PO DAILY
acetaminophen [Tylenol] 325 mg Tablet
650 mg PO Q4HPRN PRN (Reason: mild pain)
ceftriaxone 2 gram Recon Soln
2 g IV BID
Rx Instructions:
take until 04/16/25
therapeutic multivitamin Tablet
1 tab PO DAILY
clopidogrel [Plavix] 75 mg Tablet
75 mg PO DAILY
carvedilol [Coreg] 3.125 mg Tablet
3.125 mg PO BID
ampicillin sodium 2 gram Recon Soln
2 g IV Q4H
Rx Instructions:
take until 04/16/25
magnesium hydroxide [Milk of Magnesia] 400 mg/5 mL Suspension
2,400 mg PO R69IPLY PRN (Reason: constipation)
tamsulosin [Flomax] 0.4 mg Capsule
0.4 mg PO HS
bisacodyl [Dulcolax (bisacodyl)] 10 mg Suppository
10 mg RI DAILYPRN PRN (Reason: if no bm aftr mom)
pantoprazole [Protonix] 40 mg Tablet,Delayed Release (Dr/Ec)
40 mg PO DAILY
Fleet Enema 19-7 gram/118 mL Enema
118 ml RI DAILYPRN PRN (Reason: if no bm aftr dulcoalx)
albuterol sulfate 90 mcg/actuation Hfa Aerosol Inhaler
2 puff INHALATION R Q4HPRN PRN (Reason: sob)
finasteride 5 mg Tablet
5 mg PO DAILY
rosuvastatin [Crestor] 20 mg Tablet
20 mg PO HS
tiotropium bromide 18 mcg Capsule, W/Inhalation Device
1 cap INHALATION R DAILY
mirtazapine 7.5 mg Tablet
7.5 mg PO HS
calcium carbonate-vitamin D3 [Calcium 500 + D] 500 mg-10 mcg (400 unit) Tablet
1 tab PO DAILY
lubiprostone 8 mcg Capsule
8 mcg PO SUTUTHSA@1000
lubiprostone 8 mcg Capsule
8 mcg PO MOWEFR@0800,1900
menthol-zinc oxide [Moisture Barrier Ointment] 0.44-20.6 % Ointment
1 applic TOPICAL TID
Discontinued
furosemide [Lasix] 40 mg Tablet
40 mg PO DAILY
Discharge Orders:
Discharge Patient (As Directed); Ordered 04/06/25
Ordered By: Wiley Coates
Discharge Date and Time
Print Language: MARSHALLESE
--- NOTE | 2025-04-06 11:13 | W.PN.CARDCBS ---
Addendum entered and electronically signed by Rayshawn Devries MD 04/06/25 16:15:
I saw and examined the patient.
The Day Care Aide's note was reviewed and I agree with the note.
Comment:
GEN: No distress, awake, Ox3
HEENT: supple, anicteric, mmm
LUNGS: CTA, no wheezes/rales
CV: Reg, S1/S2, 1/6 syst LSB, no gallop
ABD: soft, BS+, NT/ND
EXT: No edema
NEURO: Gross non-focal
SKIN: No rash
PLan:
Clinically much improved. Would switch over to Lasix 40 mg bid. Creatinine is normal.
Blood pressure overall remains marginal so would hold off on MAHESH/ARB/Arni for now. Would consider as outpatient.
Replete potassium.
Continue antibiotics per primary service.
Device check overall stable during this hospitalization.
Original Note:
Today's Communication / Plan
-
Replete potassium
Continue IV diuresis with transition to oral Lasix 04/07/2025
Continue IV antibiotics
Impression / Plan
-
Family Physician: Kehinde Berger
Impression:
Presented 04/02/2025 with change in mental status, lethargy, shortness of breath
Hypoxemia
Bilateral pleural effusions right greater than left
s/p 1.5 L removed by right sided thoracentesis 04/03/2025
Acute HFrEF, proBNP 2990
EF 37%, unknown if ischemic or nonischemic and unknown chronicity
Hypokalemia
Recent admission to [facility] for heart failure, bacteremia sent to [facility] 03/29/2025
Coronary artery disease
Carotid disease
Peripheral arterial disease
Heart failure with unknown ejection fraction
[employer] Claria MRI Quad NAVY DIVER-ICD implanted 08/24/[address] Kyle Swift
Hypertension
Paroxysmal atrial fibrillation
Chronic kidney disease stage III
COPD
Pulmonary fibrosis
Type 2 diabetes
Dementia
GERD
COPD
Moderate with mean gradient 16 mmHg by echo 04/03/2025
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
Hypokalemia
Echo 04/03/2025: EF 37%, moderate with mean gradient 16 mmHg and ARIANNE 1.2 cm sq, mild concentric LVH, mild TR, moderate to severe MR with dense MAC
Plan:
-Patient presented to [facility] ED 04/02/2025 with change in mental status, shortness of breath, lethargy from [facility]. Recent admission to [facility] for bacteremia
-Weight is down several pounds since admission if bed scale weight is accurate. Dry weight unknown
-Patient diuresing with Lasix 40 mg IV BID. Patient was taking Lasix 40 mg PO daily prior to admission. Would continue IV diuresis today as patient unable to be weaned off oxygen and still requiring 2 L via nasal cannula. Likely transition back
to oral Lasix in next 24 hours
-Cre stable at 1.0 on labs reviewed by me 04/06/2025
-Potassium down to 3.1 04/06/25 and KCl 40 meq every 4 hours has been ordered by hospitalist attending. Will need close follow up labs and monitoring of electrolytes
-Patient had 1.5 L of straw-colored fluid removed during right sided thoracentesis on 04/03/2025
-EF 37% by echo 04/03/2025 along with moderate and moderate to severe MR. It is unknown what his baseline EF is, we have requested and continue to await records from his admission to [facility] 2-3 weeks ago.
-Patient has [employer] NAVY DIVER ICD: Device interrogated this hospitalization which shows appropriate leads and thresholds. There have been no ventricular or atrial arrhythmias. Patient is BiV paced at 97.7%. There is 13 months to SAJAN of note OptiVol
fluid index indicator started to significantly elevate indicating start of acute heart failure episode in early to mid February but seems to have plateaued.
-Outpatient dose of Coreg 3.125 mg BID has been continued
-Patient is not chronically on MAHESH/ARB/ARNI or aldosterone antagonist for unclear reasons. No obvious allergies, but could be due to hypotension. Blood pressure continues to allow for initiation
-Patient was at [facility] receiving IV antibiotics including ampicillin and ceftriaxone following admission with bacteremia at [facility] earlier this month. ID suspects it could be Enterococcus based on the antibiotics that are being
given and that it may involve the patient's cardiac device or valvular heart disease again based on the type of antibiotics that are currently being used. As noted above echo did not show obvious vegetation.
- Hemoglobin slowly downward trending. Unclear baseline. Defer to primary service. If able to have BM would heme test stool. Discussed w/ nursing
Now being d/tosin to [facility]. Will need follow up with his outpatient hvac mechanic.
History of Present Illness 04/03/2025:
Patient is an 89-year-old male with past medical history of dementia, coronary artery disease, PAD, heart failure with unknown ejection fraction, pacemaker/ICD, hypertension, paroxysmal atrial fibrillation, chronic kidney disease, pulmonary
fibrosis, type 2 diabetes, COPD and dementia who was recently at [facility] for bacteremia and heart failure. He was discharged to [facility] 03/29/25 on antibiotic regimen of ampicillin 2g IV q6 and ceftriaxone 2g IV BID. On
04/02/2025 staff noted patient to have change in mental status, lethargy and reduced pulse oximetry prompting them to call 911. Patient arrived to emergency department on 4 L of oxygen via nasal cannula. Chest x-ray showed moderate right pleural
effusions, moderate bilateral airspace disease concerning for pneumonia and increased interstitial markings concerning for pulmonary edema. CT of chest showed moderate bilateral pleural effusions right greater than left, pulmonary fibrosis, mild
bronchiectasis. Head CT showed no acute intracranial abnormality with moderate atrophy and small vessel disease. EKG showed ventricular paced rhythm. Found to be hypokalemic with potassium of 3.1
Patient very poor historian/demented and unable to provide any meaningful history. I did reach out to his Johanna [phone] but phone went directly to voicemail and LVM for her
Progress Note - Sales Trainee
Subjective
Date of Service: April 06, 2025
Patient seen and examined. Pleasantly demented, lying in bed without compliants
Objective
Labs:
04/06/25 04:33
04/06/25 04:33
Labs
Hgb 8.9 g/dL (13.0-18.0) L 04/06/25 04:33
Hct 28.5 % (39.0-52.0) L 04/06/25 04:33
Plt Count 167 10^3/uL (130-400) 04/06/25 04:33
Sodium 138 mmol/L (135-145) 04/06/25 04:33
Potassium 3.1 mmol/L (3.5-5.1) L 04/06/25 04:33
BUN 12 mg/dl (9-20) 04/06/25 04:33
Creatinine 1.0 mg/dL (0.7-1.3) 04/06/25 04:33
Glucose 77 mg/dl (70-99) 04/06/25 04:33
Vital Signs and I&O:
Vital Signs
Temp Pulse Resp BP Pulse Ox
98.0 F 75 18 98/40 96
04/06/25 07:35 04/06/25 07:35 04/06/25 07:35 04/06/25 08:15 04/06/25 08:15
Vital Signs
Temp Pulse Resp BP Pulse Ox
98.0 F 75 18 98/40 96
04/06/25 07:35 04/06/25 07:35 04/06/25 07:35 04/06/25 08:15 04/06/25 08:15
Intake & Output
04/04/25 04/05/25 04/06/25 04/07/25
06:59 06:59 06:59 06:59
Intake Total 1536 / 1536 1176 / 1176 1200 / 1200
Output Total 750 / 750 550 / 550
Balance 786 / 786 626 / 626 1200 / 1200
Physical Exam
Physical Exam
GEN: No distress, awake, oriented to self only, lying in bed
HEENT: supple, anicteric, mmm
LUNGS:Mildly decreased at bases otherwis CTA, no crackles, wheezing
CV: Reg, S1/S2, 3/6 blowing murmur LSB/apex loudest
ABD: soft, BS+, NT/ND
EXT: No edema, clubbing or cyanosis
NEURO: Demented, only oriented to self
SKIN: No rash, warm, dry, pink
[2025-04-06 12:06] LABS: Glucose - Point of Care 173 mg/dl (70-99)
[2025-04-06 15:19] VITALS: BP 100/43
== END 2025-04-06 15:28 | DRG 291 ==
LOC: 4 WEST ACU 21:29
PROVIDERS: Radiology Vascular & Interventional Radiology; ADMITTING PHYSICIAN Hospitalist; ATTENDING PHYSICIAN Hospitalist; CONSULT PHYSICIAN Internal Medicine Cardiovascular Disease; CONSULT PHYSICIAN Internal Medicine Infectious Disease; EMERGENCY PHYSICIAN Emergency Medicine; FAMILY PHYSICIAN Internal Medicine
PROC: 0W993ZZ Drainage of Right Pleural Cavity, Percutaneous Approach (ICD-10-PCS; 2025-04-03)
PROC: 5A0935A Assistance with Respiratory Ventilation, Less than 24 Consecutive Hours, High Flow/Velocity Cannula (ICD-10-PCS; 2025-04-04)
DX: I13.0 Hypertensive heart and chronic kidney disease with heart failure and stage 1 through stage 4 chronic kidney disease, or unspecified chronic kidney disease (principal); G93.41 Metabolic encephalopathy; I50.23 Acute on chronic systolic (congestive) heart failure; J91.8 Pleural effusion in other conditions classified elsewhere; R78.81 Bacteremia; I25.10 Atherosclerotic heart disease of native coronary artery without angina pectoris; E87.6 Hypokalemia; E78.00 Pure hypercholesterolemia, unspecified; I25.5 Ischemic cardiomyopathy; E11.22 Type 2 diabetes mellitus with diabetic chronic kidney disease; E11.51 Type 2 diabetes mellitus with diabetic peripheral angiopathy without gangrene; N18.30 Chronic kidney disease, stage 3 unspecified; N40.0 Benign prostatic hyperplasia without lower urinary tract symptoms; L89.151 Pressure ulcer of sacral region, stage 1; L89.621 Pressure ulcer of left heel, stage 1; L89.611 Pressure ulcer of right heel, stage 1; I08.1 Rheumatic disorders of both mitral and tricuspid valves; G30.9 Alzheimer's disease, unspecified; F02.80 Dementia in other diseases classified elsewhere, unspecified severity, without behavioral disturbance, psychotic disturbance, mood disturbance, and anxiety; I48.0 Paroxysmal atrial fibrillation; K21.9 Gastro-esophageal reflux disease without esophagitis; J44.9 Chronic obstructive pulmonary disease, unspecified; B95.2 Enterococcus as the cause of diseases classified elsewhere; R06.89 Other abnormalities of breathing; R09.02 Hypoxemia; Z88.6 Allergy status to analgesic agent; Z79.899 Other long term (current) drug therapy; Z79.02 Long term (current) use of antithrombotics/antiplatelets; Z87.891 Personal history of nicotine dependence; Z95.810 Presence of automatic (implantable) cardiac defibrillator; Z95.0 Presence of cardiac pacemaker
CPT/HCPCS: 32555; 70450; 71045; 71250; 80048; 80053; 82248; 82805; 82962; 83036; 83605; 83615; 83735; 83880; 84155; 84157; 84443; 85025; 85027; 87015; 87040; 87070; 87205; 88112; 88305; 89051; 93005; 93306; 93971; 97116; 97163; 97167; 97535; 99285; J2997; Q9950

== ENCOUNTER 2025-04-12 13:36 | Inpatient (IN) | payer MEDICARE, BC, SELFPAY ==
[2025-04-12] VITALS (7 sets, daily range): BP systolic 75–129; BP diastolic 60–91
--- NOTE | 2025-04-12 09:34 | ED.GENMED ---
History of Present Illness
<Wing Billy PA-C - Last Filed: 04/12/25 13:48>
General
Chief Complaint: Breathing Problem
Time Seen by Provider: 04/12/25 09:31
History of Present Illness
History of Present Illness:
89-year-old male with history of pulmonary fibrosis/COPD, Alzheimer's dementia, A-fib, CHF, hypertension, hyperlipidemia, insulin-dependent diabetes, and status post pacemaker placement presents for evaluation of increased work of breathing this
morning. Patient was recently admitted to this hospital for acute CHF exacerbation. Currently finishing a course of IV antibiotics (ampicillin and ceftriaxone) for bacteremia that was diagnosed at [facility] prior to most recent
hospitalization. History is limited due to patient's dementia. States that he has minimal shortness of breath currently. He was noted to be saturating at 98% on his baseline 2 L of oxygen for EMS. He denies chest pain or leg swelling
Review of Systems
<Wing Billy PA-C - Last Filed: 04/12/25 13:48>
Review of Systems
Allergies reviewed?: Yes
All Other Systems: ROS reviewed and negative except as documented in HPI and ROS
Phy Exam
<Wing Billy PA-C - Last Filed: 04/12/25 13:48>
Physical Exam
Physical Exam:
GEN: Well appearing, NAD, WDWN
HEENT: Oral mucosa moist, no scleral icterus
Cardiac: Regular rate and rhythm, no murmurs
Lung: No respiratory distress, no tachypnea, globally diminished breath sounds more so in the right base
MSK: No gross deformity or injuries, no lower extremity edema
Skin: Good color, no pallor or jaundice, no rashes
Neuro: AO x3, moves all extremities freely
Psych: Calm, cooperative
Scores
<Wing Billy PA-C - Last Filed: 04/12/25 13:48>
Heart Failure Risk
Heart Failure Risk Score: Not Applicable
Course
<Wing Billy PA-C - Last Filed: 04/12/25 13:48>
Orders/Labs/Results
Orders:
Orders
04/12/25 09:32
Electrocardiogram (*1) Urgent
Reason for Study: Shortness of Breath
EKG- Treatment ONCE
Interrogate Pacemaker- Treatment ONCE
04/12/25 09:33
CR Chest Portable - 1 View Urgent
Comment:
Reason For Exam: SOB
Reason Study Needs to be Portable: Other
04/12/25 09:39
COVID-19 Antigen Urgent
Source: Nasal Swab
Complete Blood Count/With Diff Urgent
Comprehensive Metabolic Panel Urgent
NT-proBNP Urgent
Troponin I Urgent
04/12/25 10:05
CT Chest PE Study Urgent
Comment:
Reason For Exam: SOB
04/12/25 12:11
IRAD CONSULT Urgent
Consulting Provider: Evgeny Gambino
Was physician already notified: Yes
Procedure being ordered, including laterality if applicable: R thoracentesis
Acknowledgement that appropriate orders are entered: Yes
04/12/25 12:12
Body Fluid Cell Count Routine
What is the Body Fluid: pleural fluid
Comment: post procedure
Body Fluid Glucose Routine
Fluid Source: Pleural
Body Fluid LDH Routine
Fluid Source: Pleural
Body Fluid Protein Routine
Fluid Source: Pleural
Fluid Culture with Gram Stain Routine
MARC Source: Pleural Fluid
Specimen Description:
Comment: post procedure
04/12/25 13:19
Add On- LAB Urgent
Tests Added?: iron tibc ferritin, folate b12
04/12/25 13:20
Admit/Transfer Patient As Directed
Co-Sign Provider:
Level of Care: Inpatient admission
Assign to:: Telemetry
Physician / Group: sri baldwin
Diagnosis: hypoxic resp insuff 2/2 bilat pleural eff, chf, hypokalemia, gen weakness,
Reason for Telemetry: Acute Heart Failure
Date to Stop Telemetry: 04/15/25
Time to Stop Telemetry: 11:00
Reason for Hospitalization: hypoxic resp insuff 2/2 bilat pleural eff, chf, hypokalemia, gen weakness,
Expected length of stay greater than two midnights?: Yes
ELOS- Estimated Length of Stay in days: 4
I certify the patient meets the requirements for IP care: Yes
04/12/25 13:22
Code Status As Directed
Resuscitation Status: Full Code
04/12/25 13:24
PRN Pain Medication Management As Directed
May give lesser potent ordered pain med per pt: Yes
preference::
Protocol:: Medication orders for pain may be administered in a
manner that supports deferring to patient preference
when the pt is:
- Requesting an ordered lesser potent pain medication.
Least to most potent pain medications are defined
as: acetaminophen < NSAID < tramadol < opioids
(morphine, oxycodone, hydromorphone).
- Requesting a lesser dose of the same medication IF
ORDERED.
- Requesting a less intrusive route of administration
if both routes are prescribed by the provider (PO <
IV).
04/12/25 13:28
CARDIOLOGY CONSULT Routine
Consulting Provider: Cecilio Garcia
Was physician already notified: Yes
Reason for consult: acute chf bilat plueral effusion
04/15/25 11:00
DC Protocol for Telemetry ONCE
Abnormal Lab Results
04/12/25
09:39
RBC 3.73 L 10^6/uL
(4.70-6.10)
Hgb 9.8 L g/dL
(13.0-18.0)
Hct 32.8 L %
(39.0-52.0)
MCH 26.3 L pg
(27.0-31.0)
MCHC 29.9 L g/dL
(33.0-37.0)
RDW 23.9 H %
(11.5-14.5)
Absolute Lymphs (auto) 1.1 L 10^3/uL
(1.2-3.4)
Lymphocytes % 20.0 L %
(20.5-51.1)
Monocytes % 11.8 H %
(1.7-9.3)
Potassium 3.2 L mmol/L
(3.5-5.1)
Carbon Dioxide 36 H mmol/L
(22-30)
Glucose 100 H mg/dl
(70-99)
Total Protein 5.8 L g/dl
(6.3-8.2)
Albumin 3.0 L g/dl
(3.5-5.0)
04/12/25 09:39
04/12/25 09:39
Vital Signs
Initial and Last Documented VS:
Initial Vital Signs
Temp Pulse Resp Pulse Ox
98.7 F 94 18 92
04/12/25 09:29 04/12/25 09:29 04/12/25 09:29 04/12/25 09:29
Last Documented Vital Signs
Temp Pulse Resp BP Pulse Ox
98.7 F 75 23 129/63 96
04/12/25 09:29 04/12/25 13:00 04/12/25 13:00 04/12/25 11:00 04/12/25 13:00
<Jenni Dunn MD - Last Filed: 04/12/25 12:34>
Orders/Labs/Results
Orders:
Orders
04/12/25 09:32
Electrocardiogram (*1) Urgent
Reason for Study: Shortness of Breath
EKG- Treatment ONCE
Interrogate Pacemaker- Treatment ONCE
04/12/25 09:33
CR Chest Portable - 1 View Urgent
Comment:
Reason For Exam: SOB
Reason Study Needs to be Portable: Other
04/12/25 09:39
COVID-19 Antigen Urgent
Source: Nasal Swab
Complete Blood Count/With Diff Urgent
Comprehensive Metabolic Panel Urgent
NT-proBNP Urgent
Troponin I Urgent
04/12/25 10:05
CT Chest PE Study Urgent
Comment:
Reason For Exam: SOB
04/12/25 12:11
IRAD CONSULT Urgent
Consulting Provider: Evgeny Gambino
Was physician already notified: Yes
Procedure being ordered, including laterality if applicable: R thoracentesis
Acknowledgement that appropriate orders are entered: Yes
04/12/25 12:12
Body Fluid Cell Count Routine
What is the Body Fluid: pleural fluid
Comment: post procedure
Body Fluid Glucose Routine
Fluid Source: Pleural
Body Fluid LDH Routine
Fluid Source: Pleural
Body Fluid Protein Routine
Fluid Source: Pleural
Fluid Culture with Gram Stain Routine
MARC Source: Pleural Fluid
Specimen Description:
Comment: post procedure
04/12/25 13:19
Add On- LAB Urgent
Tests Added?: iron tibc ferritin, folate b12
04/12/25 13:20
Admit/Transfer Patient As Directed
Co-Sign Provider:
Level of Care: Inpatient admission
Assign to:: Telemetry
Physician / Group: sri baldwin
Diagnosis: hypoxic resp insuff 2/2 bilat pleural eff, chf, hypokalemia, gen weakness,
Reason for Telemetry: Acute Heart Failure
Date to Stop Telemetry: 04/15/25
Time to Stop Telemetry: 11:00
Reason for Hospitalization: hypoxic resp insuff 2/2 bilat pleural eff, chf, hypokalemia, gen weakness,
Expected length of stay greater than two midnights?: Yes
ELOS- Estimated Length of Stay in days: 4
I certify the patient meets the requirements for IP care: Yes
04/12/25 13:22
Code Status As Directed
Resuscitation Status: Full Code
04/12/25 13:24
PRN Pain Medication Management As Directed
May give lesser potent ordered pain med per pt: Yes
preference::
Protocol:: Medication orders for pain may be administered in a
manner that supports deferring to patient preference
when the pt is:
- Requesting an ordered lesser potent pain medication.
Least to most potent pain medications are defined
as: acetaminophen < NSAID < tramadol < opioids
(morphine, oxycodone, hydromorphone).
- Requesting a lesser dose of the same medication IF
ORDERED.
- Requesting a less intrusive route of administration
if both routes are prescribed by the provider (PO <
IV).
04/12/25 13:28
CARDIOLOGY CONSULT Routine
Consulting Provider: Cecilio Garcia
Was physician already notified: Yes
Reason for consult: acute chf bilat plueral effusion
04/15/25 11:00
DC Protocol for Telemetry ONCE
Abnormal Lab Results
04/12/25
09:39
RBC 3.73 L 10^6/uL
(4.70-6.10)
Hgb 9.8 L g/dL
(13.0-18.0)
Hct 32.8 L %
(39.0-52.0)
MCH 26.3 L pg
(27.0-31.0)
MCHC 29.9 L g/dL
(33.0-37.0)
RDW 23.9 H %
(11.5-14.5)
Absolute Lymphs (auto) 1.1 L 10^3/uL
(1.2-3.4)
Lymphocytes % 20.0 L %
(20.5-51.1)
Monocytes % 11.8 H %
(1.7-9.3)
Potassium 3.2 L mmol/L
(3.5-5.1)
Carbon Dioxide 36 H mmol/L
(22-30)
Glucose 100 H mg/dl
(70-99)
Total Protein 5.8 L g/dl
(6.3-8.2)
Albumin 3.0 L g/dl
(3.5-5.0)
04/12/25 09:39
04/12/25 09:39
Vital Signs
Initial and Last Documented VS:
Initial Vital Signs
Temp Pulse Resp Pulse Ox
98.7 F 94 18 92
04/12/25 09:29 04/12/25 09:29 04/12/25 09:29 04/12/25 09:29
Last Documented Vital Signs
Temp Pulse Resp BP Pulse Ox
98.7 F 75 23 129/63 96
04/12/25 09:29 04/12/25 13:00 04/12/25 13:00 04/12/25 11:00 04/12/25 13:00
<Wing Billy PA-C - Last Filed: 04/12/25 13:48>
MDM/Problems Addressed
MDM/Problems Addressed:
Patient found to have recurrent pleural effusions which is likely exacerbated. No evidence of PE. He did require added supplemental oxygen thus we will admit for thoracentesis and further management
<Wing Billy PA-C - Last Filed: 04/12/25 13:48>
*Pulse Oximetry
SaO2: 92
Nasal Cannula flow liters per minute: 2
Patient hypoxic: yes
*Critical Care Note
Total Time (30-74mins, 75-104mins- exclusive of procedures): Not Applicable
ED Attending Note
<Wing Billy PA-C - Last Filed: 04/12/25 13:48>
-
Portions of this chart may have been created with voice recognition software.� Occasional wrong word or��sound alike� substitutions may have occurred due to the inherent limitations of voice recognition software.
<Jenni Dunn MD - Last Filed: 04/12/25 12:34>
ED Attending Note
Patient seen and examined by attending physician: Yes
I performed the substantive portion of visit, reviewed & personally made and approve the management plan that is documented in note by myself or DAVID.: Yes
ED Attending Note:
89-year-old male with a recent hospitalization for pleural effusions and heart failure, complicated by hypokalemia, also noted to be treated for bacteremia with a PICC line and IV antibiotics was discharged to a facility. Presents emergency
department with dyspnea and noted to be hypoxic here. Workup consistent with bilateral pleural effusions. IR has been consulted for drainage, patient likely will need overnight observation given degree of effusions and hypoxia noted here. He
denies chest pain. Case discussed with patient and daughter who is at bedside and very attentive. Heart regular rate and rhythm.
Discharge Plan
Departure
Patient Disposition: Admit
Date of Disposition: 04/12/25
Time of Disposition: 12:53
Admit to: Med/Surg
Presentation/result/management discussed w/ accepting MD/DO: Hospitalist
Discharge Problem:
Bilateral pleural effusion, Hypoxia
Interventions
Interventions:
*Risk Screen - Suicide Last Done: 04/12/25 09:29
*General Assessment Last Done: 04/12/25 09:29
*Neglect/Abuse Screening Last Done: 04/12/25 09:29
*ED COVID-19 Vaccine History Last Done: 04/12/25 09:29
*ED Influenza Vaccine History Last Done: 04/12/25 09:29
ED- Cardiac Assessment Last Done: 04/12/25 10:13
ED- Pulmonary Assessment Last Done: 04/12/25 10:14
[2025-04-12 10:07] LABS: COVID-19 Antigen Negative (Negative); Hematocrit 32.8 % (39.0-52.0); Hemoglobin 9.8 g/dL (13.0-18.0); Mean Corp Hgb Conc. 29.9 g/dL (33.0-37.0); Mean Corpuscular Volume 87.9 fL (80.0-94.0); Nucleated Red Blood Cells % 0 % (-); Platelet Count 192 10^3/uL (130-400); Red Cell Dist. Width 23.9 % (11.5-14.5)
[2025-04-12 10:16] LABS: ALT (SGPT) 15 U/L (0-50); AST (SGOT) 37 U/L (17-59); Albumin 3.0 g/dl (3.5-5.0); Alkaline Phosphatase 54 U/L (38-126); Blood Urea Nitrogen 12 mg/dl (9-20); Calcium 8.6 mg/dl (8.4-10.2); Carbon Dioxide 36 mmol/L (22-30); Chloride 103 mmol/L (98-107); Glucose 100 mg/dl (70-99); Potassium 3.2 mmol/L (3.5-5.1); Sodium 140 mmol/L (135-145); Total Protein 5.8 g/dl (6.3-8.2); eGFR > 60.00
[2025-04-12 10:18] LABS: Troponin I 0.025 ng/ml
--- NOTE | 2025-04-12 12:45 | HPS.HSE ---
Addendum entered and electronically signed by Chucho Campuzano MD 04/12/25 14:10:
This is an addendum to H&P written by Tatianna Valdovinos on 04/12/2025. �Patient seen and examined independently with [employer].
89-year-old male past medical history of paroxysmal atrial fibrillation with pacemaker, HFrEF, history of bilateral pleural effusions status post thoracentesis on 04/03 moderate aortic stenosis, moderate to severe mitral regurgitation, Enterococcus
faecalis bacteremia, COPD on 2 L baseline, peripheral vascular disease, hypertension, hyperlipidemia, Alzheimer's dementia, GERD, BPH, chronic anemia, presenting with increased work of breathing.
Patient recently underwent right thoracentesis with drainage of 1500 cc on 04/03. �Patient also currently on IV ampicillin/IV ceftriaxone for Enterococcus bacteremia previously diagnosed at [facility] unclear source to be continued until 04/15.
Vital signs unremarkable. �Patient saturating 92% on 6 L.
Labs show stable hemoglobin 9.8. �Cardiac BNP 3600. �Potassium 3.2.
Chest x-ray shows small right pleural effusion with adjacent atelectasis/pneumonia. �CT chest shows moderate bilateral pleural effusions. �Patchy opacity in the posterior left upper lobe with similar appearance from prior CT chest possibly mild
pneumonitis/pneumonia. �Cardiomegaly.
Recent echocardiogram shows EF of 37%, moderate to severe mitral regurgitation, moderate aortic stenosis.
Patient with recurrent bilateral pleural effusions secondary to acute CHF exacerbation.� Hypokalemia secondary to diuretics. 40 IV Lasix twice daily. �IR consulted for thoracentesis. �Cardiology consulted. Replete potassium.�
Outpatient GI followup as previously recommended for stable anemia. Check iron and B12 levels.�
Original Note:
Family Physician
-
Family Physician: Cary Chauhan
Chief Complaint
-
Fatigue, shortness of breath, hypoxia
History of Present Illness
89-year-old male from [facility] rehab with fatigue, increased shortness of breath. His daughter Martha at bedside states he has been in the hospital and in rehabs over the past 2 months has not been home.
He had a recent admission 04/02 - 04/06/2025 was treated for heart failure with right pleural effusion status post thoracentesis 1500 cc on 04/03/2025. His ejection fraction was noted to be 37% unknown type. His Lasix was increased from 40 mg daily
to twice daily with discharge weight of 59-61 kg. He was to continue ampicillin and ceftriaxone for E faecalis bacteremia at [facility] until 04/15/2025. He was noted to be anemic was referred to outpatient GI. He denies headache, fever,
chills, chest pain, palpitations, abdominal pain, nausea, vomiting, diarrhea, urinary symptoms.
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
Medical History
Past Medical History
Past Medical History: Reports Other
Additional Past Medical History:
bacteremia March 2025 unclear source,
ASCVD (CAD, Carotid Disease, PAD)
CHF - Unknown Type
Cardiomyopathy EF 37%
Hypertension
Paroxysmal Atrial Fibrillation
Permanent pacemaker
CKD III
Pulmonary Fibrosis
COPD
DM-II
Senile Dementia
GERD
Past Surgical History: Reports Other
Additional Past Surgical History:
PPM / AICD (bilateral - both still in place)
PICC line right upper chest wall March 2025
Social History
Unable to obtain full social history at this time due to: Dementia
Tobacco: Former Smoker (32-year 1 pack a day quit age 52)
Alcohol: Occasional
Drug: None
Personal:
Living: With Family (Currently at rehab)
Employment: Retired
Family History
Family History: Unable to Obtain
Allergies / Home Medications
Allergies reflects when Allergies were last updated in [facility] [employer].
Home Medications with original date entered in [employer]
Allergy/Medication List:
Allergies
Allergy/AdvReac Type Severity Reaction Status Date / Time
aspirin Allergy Unknown Unknown Verified 04/02/25 17:45
bee venom protein (honey bee) Allergy Unknown Unknown Verified 04/02/25 17:45
Fish Containing Products Allergy Unknown Unknown Verified 04/02/25 17:45
linaclotide (From Linzess) Allergy Unknown Unknown Verified 04/02/25 17:45
fish derived Allergy Unknown Verified 04/02/25 17:45
fish oil Allergy Unknown Verified 04/02/25 17:45
Home Medications
acetaminophen 325 mg tablet (Tylenol) 650 mg PO Q4HPRN PRN mild pain 04/02/25
albuterol sulfate 90 mcg/actuation aerosol inhaler 2 puff inhalation R Q4HPRN PRN sob 04/02/25
ampicillin sodium 2 gram intravenous solution 2 g IV Q4H Infection 04/02/25
bisacodyl 10 mg rectal suppository (Dulcolax (bisacodyl)) 10 mg RI DAILYPRN PRN if no bm aftr mom 04/02/25
calcium 500 mg (as carbonate)-vitamin D3 10 mcg (400 unit) tablet (Calcium 500 + D) 1 tab PO DAILY Supplement 04/02/25
carvedilol 3.125 mg tablet (Coreg) 3.125 mg PO BID Blood Pressure 04/02/25
ceftriaxone 2 gram intravenous solution 2 g IV BID Infection 04/02/25
clopidogrel 75 mg tablet (Plavix) 75 mg PO DAILY Blood Clot Prevention/Tx 04/02/25
finasteride 5 mg tablet 5 mg PO DAILY Urinary Issue 04/02/25
lubiprostone 8 mcg capsule 8 mcg PO MOWEFR@0800,1900 Gastrointestinal Issue 04/02/25
lubiprostone 8 mcg capsule 8 mcg PO SUTUTHSA@1000 Gastrointestinal Issue 04/02/25
magnesium hydroxide 400 mg/5 mL oral suspension (Milk of Magnesia) 2,400 mg PO [id number] PRN constipation 04/02/25
mirtazapine 7.5 mg tablet 7.5 mg PO HS Mental Health/Anxiety 04/02/25
pantoprazole 40 mg tablet,delayed release (Protonix) 40 mg PO DAILY Gastrointestinal Issue 04/02/25
rosuvastatin 20 mg tablet (Crestor) 20 mg PO HS High Cholesterol 04/02/25
sennosides 8.6 mg tablet (senna) 17.2 mg PO DAILY Gastrointestinal Issue 04/02/25
sodium phosphates 19 gram-7 gram/118 mL enema (Fleet Enema) 118 ml RI DAILYPRN PRN if no bm aftr dulcoalx 04/02/25
tamsulosin 0.4 mg capsule (Flomax) 0.4 mg PO HS Transplant 04/02/25
therapeutic multivitamin 1 tab PO DAILY Supplement 04/02/25
tiotropium bromide 18 mcg capsule with inhalation device 1 cap inhalation R DAILY Lung/Breathing Issues 04/02/25
furosemide 40 mg tablet 40 mg PO BID AT 0800,1600 30 days #60 tabs 04/06/25
potassium chloride 20 mEq tablet,extended release 20 meq PO DAILY 04/12/25
zinc oxide 12 % topical cream ([place] Protect (zinc oxide)) 1 applic topical Q8 bilateral buttocks rash 04/12/25
Review of Systems
-
History Source: Patient and Family (Daughter Martha at bedside)
A 12 point ROS was completed and negative except as noted: Yes
Constitutional: Reports Fatigue; Denies Fever, Weight Gain or Chills
EENT: Denies Sore Throat or Runny Nose
Respiratory: Reports Cough and Trouble Breathing
Cardiac: Denies Chest Pain, Diaphoresis, Palpitations or Syncope
Abdomen/GI: Denies Abdominal Pain, Nausea, Vomiting, Diarrhea, Constipated or Bloody Stools
: Denies Dysuria, Frequency, Flank Pain, Incontinence or Difficulty Voiding
Musculoskeletal: Denies Joint Pain or Edema
Skin: Reports Other (PICC line present right upper chest); Denies Itching or Rash
Neurological: Reports Weakness (Generalized); Denies Dizzy or Headache
Endocrine: Reports No Symptoms
Hematologic/Lymphatic: Reports No Symptoms
Psych: Reports Calm
Physical Exam
Vital Signs
Vital Signs
Temp Pulse Resp BP Pulse Ox
98.7 F 76 25 124/60 100
04/12/25 09:29 04/12/25 10:10 04/12/25 10:10 04/12/25 10:00 04/12/25 10:10
Physical Exam
General: Conversant; No Pain, Fever or Chills
HEENT: NormoCephalic, Anicteric, Moist mucous membranes, PERRLA, [place] Conjunctivae and No Ptosis
Respiratory: Other (Diminished through bilateral lungs); No Rales or Rhonchi
Cardiac: S1/S2 and Other (Paced on monitor); No Murmur, Rub, Gallop or Peripheral Edema
Breast: Deferred by me
GI: Soft, Non Tender, Non Distended, Normal Bowel Sounds and No Hepatosplenomegaly
Rectal: Deferred by Provider
Genito-urinary: Deferred by me
Musculoskeletal: No Clubbing, No Cyanosis and No Edema
Skin: Warm and Dry; No Rash or Jaundice
Neuro: Awake, Alert, Oriented (To name, place, daughter Martha at bedside, some of history), No Motor Deficits (In bed), Cranial Nerves Intact, No Sensory Deficits and Other (Lethargic with generalized weakness); No Slurred Speech, Facial Droop or
Tremors
Psych: Calm
Laboratory Results
-
04/12/25 09:39
04/12/25 09:39
Laboratory Results
Total Bilirubin 0.4 mg/dl (0.2-1.3) 04/12/25 09:39
AST 37 U/L (17-59) 04/12/25 09:39
ALT 15 U/L (0-50) 04/12/25 09:39
Alkaline Phosphatase 54 U/L (38-126) 04/12/25 09:39
Troponin I 0.025 ng/ml 04/12/25 09:39
Impression/Plan
-
Impression/plan:
Admit to telemetry
#Hypoxic respiratory insufficiency secondary to recurrent bilateral pleural effusions
-Status post thoracentesis 04/03 1500 cc straw-colored pleural fluid
92% 2 L nasal cannula, 94% on 6 L nasal cannula
- Consult IR for thoracentesis today
CT chest: No PE, moderate bilateral pleural effusions,
patchy opacity in the posterior left upper lobe with similar appearance on
previous chest CT possibly secondary to mild pneumonitis/pneumonia, cardiomegaly
# Acute hypokalemia likely secondary to diuretics
K3.2 will give KCl 40 mEq
follow BMP
#Acute on chronic anemia�normocytic
Hgb 9.8 was 8.9 on 04/06/2025 however 11.1 on 04/02/2025
- Will check iron panel, B12, folate
# Acute on chronic systolic congestive heart failure/ Moderate aortic stenosis and moderate to severe mitral valve regurgitation and mild tricuspid regurgitation
#Cardiomyopathy EF 37%
-Continue carvedilol 3.125 mg twice daily
Weight 63 kg > 61.3 on 04/06/2025 = 2.3 kg weight gain in 6 days
Had recent increase from furosemide 40 mg daily to 40 mg twice daily 04/02 - 04/06/2025 admission
-Will give IV 40 mg Lasix twice daily given BNP 3600 up from 2900 on discharge 04/06/2025
- Consult cardiology
#Profound weakness secondary to above including multiple hospitalizations x 2 months
- PT/OT consult
- Patient coming from [facility] rehab will need to return to rehab facility
#Reported history DM 2
Recent HgbA1c 5.6
#E faecalis bacteremia: Recent diagnosis at [facility]
On IV ampicillin and ceftriaxone-->through 04/15 was seen by ID during that visit
No gross vegetations
#History of hospital induced delirium-no current delirium on admission
#Paroxysmal A-fib
Continue beta-blockers
Not on anticoagulation
#Permanent pacemaker
#COPD�no acute exacerbation
Bronchodilators as needed
#CAD/PVD:
On antiplatelets and statins
#Hypertension
Continue current antihypertensive
#Hyperlipidemia
Continue statin
#Dementia Alzheimer's type/anxiety
Continue to monitor mental status and behavior
Patient oriented to name, place, daughter
- Continue mirtazapine 7.5 mg at bedtime
#GERD
Continue PPI
#Chronic constipation
Continue Amitiza and stool softeners
BPH:
On Flomax and finasteride
DVT prophylaxis:
Heparin SQ
CODE STATUS:
Full code
--- NOTE | 2025-04-12 14:11 | CON.CAR ---
Addendum entered and electronically signed by Cecilio Garcia MD 04/12/25 19:36:
89-year-old male discharged 04/06/2025 for acute on chronic HFrEF, readmitted now with the same
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
Current medications:Furosemide 40 mg IV twice daily, carvedilol 3.125 mg twice daily, clopidogrel 75 mg/day, Proscar 5 mg a day, lubiprostone, Remeron 7.5 at bedtime, pantoprazole 40 mg a day, potassium 20 meqs a day, rosuvastatin 20 mg at bedtime,
Senokot, MVI, Flomax, Spiriva, zinc, heparin, ceftriaxone, ampicillin
123/91, pulse 88, respiratory rate 18, afebrile, sats 100%, 64.9 kg, at discharge was 61.37 kg and was 67 kg on April 02, appears tachypneic, admits to shortness of breath but denies other complaints, unable to provide much history,
rhonchi/diminished breath sounds right base greater than left, systolic murmur at base and also at apex, JVD difficult to assess does not appear to be markedly elevated abdomen slender, not much edema
Hemoglobin 9.8, was 8.9, BUN and creatinine are 12 and 0.8, potassium is 3.2, proBNP is 3600, troponin is 0.025
Chest x-ray with right greater than left pleural effusion, vascular congestion
Echo 04/03/2025: EF 37%, moderate with mean gradient 16 mmHg and ARIANNE 1.2 cm sq, mild concentric LVH, mild TR, moderate to severe MR with dense MAC
Impression:
Presented 04/12/2025 with shortness of breath
Hypoxemia
Bilateral pleural effusions right greater than left
-s/p 1650 cc removed R thoracentesis today 04/12/2025
s/p 1.5 L removed by right sided thoracentesis 04/03/2025ute HFrEF, proBNP 3600
CM with EF 37% on echo 04/03/2025
Hypokalemia
Recent admission to [facility] for heart failure, bacteremia sent to [facility] 03/29/2025
Coronary artery disease
Carotid disease
Peripheral arterial disease
Heart failure with reduced ejection fraction
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 Kyle Swift
Hypertension
Paroxysmal atrial fibrillation
Chronic kidney disease stage III
COPD
Pulmonary fibrosis
Type 2 diabetes
Dementia
GERD
COPD
Moderate with mean gradient 16 mmHg by echo 04/03/2025
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
Plan:
He returns now with recurrent acute on chronic HFrEF. He still appears dyspneic and somewhat restless after right thoracentesis for 1560 mL of fluid. If he remains in distress may need to recheck chest x-ray. No pneumo apparent post procedure.
He has received IV Lasix.
Apparently has refused SGLT2 inhibitors - spironolactone and MAHESH/ARB have been held for hypotension. It might be reasonable to add digoxin in this scenario to reduce the likelihood of recurrent admissions.
Will need to discuss with family members whether goals of care should be changed
Original Note:
Consultation
Consultation Request
Date/Time Consultation Requested: 04/12/2025, 1211
Date/Time Consultation Performed: 04/12/2025, 1600
Requesting Provider: Tatianna SALEH
Performing Provider: DELFINO Nassar for Dr Garcia
Reason for Consultation: SOB
Medical History
-
Chief Complaint: SOB
History of Present Illness:
Patient is an 89-year-old male with past medical history of dementia, coronary artery disease, PAD, heart failure with unknown ejection fraction, pacemaker/ICD, hypertension, paroxysmal atrial fibrillation, chronic kidney disease, pulmonary
fibrosis, type 2 diabetes, COPD and dementia. He was just discharged from [facility] on 04/06/2025 after admission for acute on chronic heart failure reduced EF. He was aggressively diuresed 12 pounds to discharge weight of 135 pounds and transition to
Lasix 40 mg twice daily. Creatinine normal on discharge. Blood pressure marginal and not started on MAHESH/ARB/ARNI. He had right sided thoracentesis for 1.5 L.
Echo at admission: EF 37%, moderate aortic stenosis, moderate to severe MR, mild TR
He presents today with increased shortness of breath upon awakening this morning. He is on 2 L of oxygen at home.
In ED he required 6 L of O2 and was saturating 92%.
Labs on admission: proBNP 3600, hemoglobin 9.8, potassium 3.2
Of note proBNP was 2990 at last admission to [facility] for heart failure on 04/03/2025.
Chest x-ray: small right pleural effusion, chest CT: Moderate bilateral pleural effusions, no pulmonary embolism.
He underwent right thoracentesis for 1650 cc of straw-colored pleural fluid.
He currently resides at [facility] as he is getting IV antibiotics for bacteremia. In addition to recent hospitalization at [facility], he also had an admission to [facility] for bacteremia and heart failure. He was discharged to
[facility] 03/29/25 on antibiotic regimen of ampicillin 2g IV q6 and ceftriaxone 2g IV BID.
Patient very poor historian/dementia. I did speak to his daughter in the ED regarding HPI.
[facility]:
Coronary artery disease
Carotid disease
Peripheral arterial disease
Heart failure with reduced ejection fraction
Pacemaker/ICD
Hypertension
Paroxysmal atrial fibrillation
COPD
Chronic kidney disease stage III
Pulmonary fibrosis
Type 2 diabetes
Dementia
GERD
COPD
Admission March 2025 for bacteremia [facility]
Past Medical History
Past Medical History: Other (See HPI)
Past Surgical History: Cardiac (Pacemaker, defibrillator)
Social History
Tobacco: Former Smoker
Alcohol: Occasional
Drug: None
Personal:
Living: Other (Lived with until recent admission now at [facility] point)
Family History
Family History: Unable to Obtain
Allergies / Home Medications
Allergy/AdvReac Type Severity Reaction Status Date / Time
aspirin Allergy Unknown Unknown Verified 04/02/25 17:45
bee venom protein (honey bee) Allergy Unknown Unknown Verified 04/02/25 17:45
Fish Containing Products Allergy Unknown Unknown Verified 04/02/25 17:45
linaclotide (From Linzess) Allergy Unknown Unknown Verified 04/02/25 17:45
fish derived Allergy Unknown Verified 04/02/25 17:45
fish oil Allergy Unknown Verified 04/02/25 17:45
�Medication �Instructions �Recorded �Confirmed �Type
acetaminophen 325 mg tablet 650 mg PO Q4HPRN PRN mild pain 04/02/25 04/12/25 History
(Tylenol)
albuterol sulfate 90 mcg/actuation 2 puff inhalation R Q4HPRN PRN sob 04/02/25 04/12/25 History
aerosol inhaler
ampicillin sodium 2 gram 2 g IV Q4H Infection 04/02/25 04/12/25 History
intravenous solution
bisacodyl 10 mg rectal suppository 10 mg GA DAILYPRN PRN if no bm 04/02/25 04/12/25 History
(Dulcolax (bisacodyl)) aftr mom
calcium 500 mg (as 1 tab PO DAILY Supplement 04/02/25 04/12/25 History
carbonate)-vitamin D3 10 mcg (400
unit) tablet (Calcium 500 + D)
carvedilol 3.125 mg tablet (Coreg) 3.125 mg PO BID Blood Pressure 04/02/25 04/12/25 History
ceftriaxone 2 gram intravenous 2 g IV BID Infection 04/02/25 04/12/25 History
solution
clopidogrel 75 mg tablet (Plavix) 75 mg PO DAILY Blood Clot 04/02/25 04/12/25 History
Prevention/Tx
finasteride 5 mg tablet 5 mg PO DAILY Urinary Issue 04/02/25 04/12/25 History
lubiprostone 8 mcg capsule 8 mcg PO MOWEFR@0800,1900 04/02/25 04/12/25 History
Gastrointestinal Issue
lubiprostone 8 mcg capsule 8 mcg PO SUTUTHSA@1000 04/02/25 04/12/25 History
Gastrointestinal Issue
magnesium hydroxide 400 mg/5 mL 2,400 mg PO [id number] PRN 04/02/25 04/12/25 History
oral suspension (Milk of Magnesia) constipation
mirtazapine 7.5 mg tablet 7.5 mg PO HS Mental Health/Anxiety 04/02/25 04/12/25 History
pantoprazole 40 mg tablet,delayed 40 mg PO DAILY Gastrointestinal 04/02/25 04/12/25 History
release (Protonix) Issue
rosuvastatin 20 mg tablet (Crestor) 20 mg PO HS High Cholesterol 04/02/25 04/12/25 History
sennosides 8.6 mg tablet (senna) 17.2 mg PO DAILY Gastrointestinal 04/02/25 04/12/25 History
Issue
sodium phosphates 19 gram-7 118 ml GA DAILYPRN PRN if no bm 04/02/25 04/12/25 History
gram/118 mL enema (Fleet Enema) aftr dulcoalx
tamsulosin 0.4 mg capsule (Flomax) 0.4 mg PO HS Transplant 04/02/25 04/12/25 History
therapeutic multivitamin 1 tab PO DAILY Supplement 04/02/25 04/12/25 History
tiotropium bromide 18 mcg capsule 1 cap inhalation R DAILY 04/02/25 04/12/25 History
with inhalation device Lung/Breathing Issues
furosemide 40 mg tablet 40 mg PO BID AT 0800,1600 30 days 04/06/25 04/12/25 Rx
#60 tabs
potassium chloride 20 mEq 20 meq PO DAILY 04/12/25 04/12/25 History
tablet,extended release
zinc oxide 12 % topical cream 1 applic topical Q8 bilateral 04/12/25 04/12/25 History
([place] Protect (zinc oxide)) buttocks rash
Review of Systems
-
Unable to obtain full review of systems at this time due to: Dementia
History Source: Family
All other systems: Negative unless noted
Physical Exam
Vital Signs
Temp Pulse Resp BP Pulse Ox
98.7 F 75 23 129/63 96
04/12/25 09:29 04/12/25 13:00 04/12/25 13:00 04/12/25 11:00 04/12/25 13:00
Lab Results
04/12/25 09:39
04/12/25 09:39
Troponin I 0.025 ng/ml 04/12/25 09:39
Yaf-R-Biyrlbipwks Pept 3600 pg/ml 04/12/25 09:39
GEN: Sleeping comfortably lying on side, easy to arouse
HEENT: supple, anicteric, mmm
LUNGS: Decreased breath sounds B/L bases
CV: Reg, S1/S2, 2/6 syst LSB murmur
ABD: soft, BS+, NT/ND
EXT: No edema
NEURO: Gross non-focal
SKIN: No rash
Impression / Plan
-
Family Physician: Kehinde Berger
Impression:
Presented 04/12/2025 with shortness of breath
Hypoxemia
Bilateral pleural effusions right greater than left
-s/p 1650 cc removed R thoracentesis today 04/12/2025
s/p 1.5 L removed by right sided thoracentesis 04/03/2025
Acute HFrEF, proBNP 3600
CM with EF 37% on echo 04/03/2025
Hypokalemia
Recent admission to [facility] for heart failure, bacteremia sent to [facility] 03/29/2025
Coronary artery disease
Carotid disease
Peripheral arterial disease
Heart failure with reduced ejection fraction
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 Kyle Swift
Hypertension
Paroxysmal atrial fibrillation
Chronic kidney disease stage III
COPD
Pulmonary fibrosis
Type 2 diabetes
Dementia
GERD
COPD
Moderate with mean gradient 16 mmHg by echo 04/03/2025
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
Echo 04/03/2025: EF 37%, moderate with mean gradient 16 mmHg and ARIANNE 1.2 cm sq, mild concentric LVH, mild TR, moderate to severe MR with dense MAC
Plan:
-Patient presented to [facility] ED 04/12/2025 with shortness of breath, hypoxia, found to be in acute heart failure with elevated proBNP, bilateral pleural effusion on imaging, weight up at least 3 pounds, possibly 8 pounds depending on scale compared to
recent discharge 04/06/2025
-Status post right thoracentesis for 1650 cc
-Symptomatically patient improved status post thoracentesis
-Continue IV diuresis with Lasix 40 mg IV twice daily. May need higher dose of Lasix on discharge.
-K 3.2 and repletion has already been ordered.
-Creatinine stable at 0.8
-Could consider addition of spironolactone to help with heart failure reduced EF as well as hypokalemia
-EF 37% by echo 04/03/2025 along with moderate and moderate to severe MR. It is unknown what his baseline EF is, we had previously requested records from his admission to [facility] 2-3 weeks ago.
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 There have been no ventricular or atrial arrhythmias. Patient is BiV paced at 97.7%. There is 13 months
-Outpatient dose of Coreg 3.125 mg BID has been continued
-Patient is not chronically on MAHESH/ARB/ARNI or aldosterone antagonist for unclear reasons. No obvious allergies, but could be due to hypotension. Blood pressure continues to allow for initiation
- EKG personally reviewed, V-paced
Data Reviewed
-
EKG: Tracing Personally Visualized and interpreted
Labs: Labs Reviewed by me
--- NOTE | 2025-04-12 14:14 | CM ---
Addendum entered by Deedee Ferrer 04/12/25 14:59:
Per Miriam patient was walking 5 ft and max assist for adl's and patient is O2 dependent min a prior to admission to SNF. Patient may need placement for LTC if he is needing further supports after STC due to pending possible surgery per
Liaison from [facility].
Original Note:
Patient seen at bedside in ED, with daughter present. Patient states that he is staying at the [facility] for STC, CM left for liaison at [facility] asking for return call. Patient address on face sheet is from prior SN[facility]
and patient states he wants to go back to [facility] and registration is changing patient address at his request. CM will continue to follow for discharge planning needs.
Plan; return to [facility], pending bed availability and insurance.
[2025-04-12 14:25] LABS: Iron 38 ug/dl (49-181)
[2025-04-12 14:35] LABS: Total Iron Binding Capacity 293 ug/dl (261-462)
[2025-04-12 16:39] LABS: Body Fluid Second Tech EYM
[2025-04-12] MEDS: LASIX 40 MG IV (16:55)
--- NOTE | 2025-04-12 16:58 | TRANSFER ---
Patient arrived from IR via stretcher, with at bedside. VSS, V paced on telemetry, on 6 L NC--per ED, patient typically wears 3 L NC at baseline. Per thoracentesis report, 1650 ml of fluid emptied from right lung. Lungs coarse, bilaterally. x 1
assist to roll in bed. Skin check completed. Sacral foam placed for prophylaxis. Bed alarm in place, due to patient being a high fall risk. Admission completed with help of patient's . Patient oriented to room. All patient needs met. Call redd
and personal belongings within reach.
[2025-04-12] MEDS: AMPICILLIN 108 MG IV ×2 (17:55→21:32)
[2025-04-12] MEDS: STERILE WATER FOR INJECTION 20 ML IV (20:40)
[2025-04-12] MEDS: ROCEPHIN 2000 MG IV (20:41)
[2025-04-12] MEDS: HEPARIN 5000 UNITS SC (20:42)
[2025-04-12] MEDS: COREG 3.125 MG PO (20:42)
[2025-04-12] MEDS: REMERON 7.5 MG PO (21:33)
[2025-04-12] MEDS: FLOMAX 0.4 MG PO (21:33)
[2025-04-12] MEDS: CRESTOR 20 MG PO (21:33)
[2025-04-13] VITALS (7 sets, daily range): BP systolic 100–131; BP diastolic 47–75; PULSE 76; O2SAT 96; BMI 18.6
[2025-04-13 01:06] LABS: Ferritin 91.4 ng/ml (17.9-464.0)
[2025-04-13 01:37] LABS: Folate 13.1 ng/ml (2.76-20); Vitamin B12 377 pg/ml (239-931)
[2025-04-13] MEDS: AMPICILLIN 108 MG IV ×6 (02:45→23:12)
[2025-04-13] MEDS: SPIRIVA RESPIMAT 2.5 MCG 2 PUFF INH (07:28)
[2025-04-13 08:02] LABS: Hematocrit 31.8 % (39.0-52.0); Hemoglobin 9.7 g/dL (13.0-18.0); Mean Corp Hgb Conc. 30.5 g/dL (33.0-37.0); Mean Corpuscular Volume 86.4 fL (80.0-94.0); Nucleated Red Blood Cells % 0 % (-); Platelet Count 182 10^3/uL (130-400); Red Cell Dist. Width 23.4 % (11.5-14.5)
[2025-04-13 08:26] LABS: ALT (SGPT) 14 U/L (0-50); AST (SGOT) 31 U/L (17-59); Albumin 2.7 g/dl (3.5-5.0); Alkaline Phosphatase 52 U/L (38-126); Blood Urea Nitrogen 13 mg/dl (9-20); Calcium 8.5 mg/dl (8.4-10.2); Carbon Dioxide 35 mmol/L (22-30); Chloride 103 mmol/L (98-107); Estimated Creatinine Clearance 55 ml/min; Glucose 77 mg/dl (70-99); Potassium 3.2 mmol/L (3.5-5.1); Sodium 139 mmol/L (135-145); Total Protein 5.4 g/dl (6.3-8.2); eGFR > 60.00
[2025-04-13] MEDS: ROCEPHIN 2000 MG IV ×2 (08:43→20:50)
[2025-04-13] MEDS: PROTONIX 40 MG PO (08:44)
[2025-04-13] MEDS: OSCAL 500 + D 500 MG PO (08:44)
[2025-04-13] MEDS: PROSCAR 5 MG PO (08:44)
[2025-04-13] MEDS: KCL 20 MEQ PO ×2 (08:44→20:49)
[2025-04-13] MEDS: PLAVIX 75 MG PO (08:44)
[2025-04-13] MEDS: SENOKOT 17.2 MG PO (08:44)
[2025-04-13] MEDS: COREG 3.125 MG PO ×2 (08:44→20:47)
[2025-04-13] MEDS: THERAGRAN 1 TABLET PO (08:44)
[2025-04-13] MEDS: STERILE WATER FOR INJECTION 20 ML IV ×2 (08:44→20:50)
[2025-04-13] MEDS: LASIX 40 MG IV (08:45)
[2025-04-13] MEDS: HEPARIN 5000 UNITS SC ×2 (08:45→20:49)
[2025-04-13] MEDS: FLUSH (NSS) 2 FLUSH IV ×2 (08:50→23:13)
--- NOTE | 2025-04-13 09:21 | W.PN.HOSP.TC ---
Addendum entered and electronically signed by Kaiser Dumas MD 04/13/25 10:09:
POA: bilateral heel pressure injury stage 1, sacrum pressure injury stage 1 POA
- Low BMI with muscle atrophy and wasting
Moderate protein-caloric malnutrition
Original Note:
Today's Communication/Plan
-
.
Assessment / Plan
Assessment / Plan
Physical exam:
General: Chronically ill looking, underweight
HEENT: Normocephalic, Atraumatic and Moist Mucous Membranes
Respiratory: Decreased breath sounds bilaterally; Negative Wheezes, Rales or Rhonchi
Cardiac: Regular Rhythm and S1/S2, systolic murmur
GI: Soft, Nontender and Nondistended
; No Dunn
Musculoskeletal: muscle atrophy noted. No Edema
Neuro: Awake, Alert and Disoriented, followed commands.
Psych: Julius, apparent dementia, Limited judgment and insight
A/P;
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
Continue IV Lasix 40 mg twice a day and will transition to oral
Reviewed echocardiogram
GDMT--> on carvedilol only 3.125 mg twice a day.
Appreciate cardiology help
# Bilateral pleural effusion
Recurrent issue
s/p R thoracentesis this time
Status post right thoracentesis on 04/03
Consult pulmonary
#Hypokalemia:
Replete and trend
# Acute on chronic hypoxic respiratory failure
Diuresis
Oxygen supplementation to baseline ( 2 liters)
E faecalis bacteremia:
On IV ampicillin and ceftriaxone-->through 04/15
No gross vegetations
ID consulted recently
History of toxic Metabolic encephalopathy on underlying dementia
Dementia Alzheimer's type:
Continue to monitor mental status and behavior
CT of the head no acute intracranial abnormalities
Continue to monitor mental status and behavior
Paroxysmal A-fib:
Continue beta-blockers
On Plavix
PPM in place
Known COPD:
Bronchodilators as needed
CAD/PVD:
On antiplatelets and statins
Hypertension:
Continue current antihypertensive
Hyperlipidemia:
Continue statin
GERD:
On PPI
BPH:
On Flomax and finasteride
DVT prophylaxis:
Heparin SQ
CODE STATUS:
Full code
Total time spent to see the patient, examine the patient, review data and lab result, discuss treatment plan with patient, nursing staff around 55 minutes
Anticipated Discharge: 24 - 48 hours
Subjective/Interval History
-
Date of Service: April 13, 2025
No chest pain
Objective Data
-
Labs:
Laboratory Results
04/13/25
07:14
WBC 5.6
Hgb 9.7 L
Hct 31.8 L
Plt Count 182
Sodium 139
Potassium 3.2 L
Chloride 103
Carbon Dioxide 35 H
BUN 13
Creatinine 0.8
Glucose 77
Calcium 8.5
Total Bilirubin 0.5
AST 31
ALT 14
Alkaline Phosphatase 52
Vital Signs:
Vital Signs
Temp Pulse Resp BP Pulse Ox
97.5 F 75 18 110/75 97
04/13/25 07:20 04/13/25 07:32 04/13/25 07:32 04/13/25 07:20 04/13/25 07:32
I&O
04/12/25 04/13/25 04/14/25
06:59 06:59 06:59
Intake Total 108 / 108
Output Total 975 / 975 325 / 325
Balance -975 / -975 -217 / -217
--- NOTE | 2025-04-13 11:44 | CON.PUL ---
Consultation
Consultation Request
Date/Time Consultation Requested: 04/13/2025
Date/Time Consultation Performed: 04/13/2025
Requesting Provider: Dr. Dumas
Performing Provider: Dr. Gael Castillo
Reason for Consultation: Shortness of breath-bilateral pleural effusion
Medical History
-
History of Present Illness:
89-year-old woman with past medical history significant for paroxysmal atrial fibrillation, pacemaker in place, heart failure with reduced ejection fraction, history of bilateral pleural effusions underwent thoracentesis 04/03/2025, has moderate
aortic stenosis, moderate to severe MR, history of Enterococcus faecalis bacteremia, history of COPD on 2 L supplemental oxygen at baseline, peripheral vascular disease, hypertension, Alzheimer's dementia, GERD, BPH, anemia who presented with
worsening shortness of breath.
Currently recently diagnosed with Enterococcus faecalis bacteremia started on ampicillin IV at [facility]. Antibiotic should continue until 04/15/2025. No details available.
Patient was hypoxemic requiring up to 6 L.
proBNP was elevated at 3600. Patient was hypokalemic.
-
CT of the chest reviewed showed moderate to severe bilateral pleural effusions. Also left upper lobe pneumonitis versus atelectasis with cardiomegaly.
-
Past Medical History
Past Medical History: Other (See assessment and plan)
Social History
Tobacco: Former Smoker ([id number] history 1 pack a day quit at age 52.)
Alcohol: Occasional
Personal:
Living: Other (Currently in rehab)
Family History
Family History: Unable to Obtain (Dementia)
Allergies / Home Medications
Allergies
Allergy/AdvReac Type Severity Reaction Status Date / Time
aspirin Allergy Unknown Unknown Verified 04/02/25 17:45
bee venom protein (honey bee) Allergy Unknown Unknown Verified 04/02/25 17:45
Fish Containing Products Allergy Unknown Unknown Verified 04/02/25 17:45
linaclotide (From Linzess) Allergy Unknown Unknown Verified 04/02/25 17:45
fish derived Allergy Unknown Verified 04/02/25 17:45
fish oil Allergy Unknown Verified 04/02/25 17:45
Home Medications
�Medication �Instructions �Recorded �Confirmed �Last Taken �Type
acetaminophen 325 mg tablet 650 mg PO Q4HPRN PRN mild pain 04/02/25 04/12/25 Unknown History
(Tylenol)
albuterol sulfate 90 mcg/actuation 2 puff inhalation R Q4HPRN PRN sob 04/02/25 04/12/25 Unknown History
aerosol inhaler
ampicillin sodium 2 gram 2 g IV Q4H Infection 04/02/25 04/12/25 04/12/25 05:04 History
intravenous solution
bisacodyl 10 mg rectal suppository 10 mg ME DAILYPRN PRN if no bm 04/02/25 04/12/25 Unknown History
(Dulcolax (bisacodyl)) aftr mom
calcium 500 mg (as 1 tab PO DAILY Supplement 04/02/25 04/12/25 04/11/25 History
carbonate)-vitamin D3 10 mcg (400
unit) tablet (Calcium 500 + D)
carvedilol 3.125 mg tablet (Coreg) 3.125 mg PO BID Blood Pressure 04/02/25 04/12/25 04/11/25 History
ceftriaxone 2 gram intravenous 2 g IV BID Infection 04/02/25 04/12/25 04/11/25 21:54 History
solution
clopidogrel 75 mg tablet (Plavix) 75 mg PO DAILY Blood Clot 04/02/25 04/12/25 04/11/25 History
Prevention/Tx
finasteride 5 mg tablet 5 mg PO DAILY Urinary Issue 04/02/25 04/12/25 04/11/25 History
lubiprostone 8 mcg capsule 8 mcg PO MOWEFR@0800,1900 04/02/25 04/12/25 04/11/25 History
Gastrointestinal Issue
lubiprostone 8 mcg capsule 8 mcg PO SUTUTHSA@1000 04/02/25 04/12/25 Unknown History
Gastrointestinal Issue
magnesium hydroxide 400 mg/5 mL 2,400 mg PO [id number] PRN 04/02/25 04/12/25 Unknown History
oral suspension (Milk of Magnesia) constipation
mirtazapine 7.5 mg tablet 7.5 mg PO HS Mental Health/Anxiety 04/02/25 04/12/25 04/11/25 History
pantoprazole 40 mg tablet,delayed 40 mg PO DAILY Gastrointestinal 04/02/25 04/12/25 04/11/25 History
release (Protonix) Issue
rosuvastatin 20 mg tablet (Crestor) 20 mg PO HS High Cholesterol 04/02/25 04/12/25 04/11/25 History
sennosides 8.6 mg tablet (senna) 17.2 mg PO DAILY Gastrointestinal 04/02/25 04/12/25 04/11/25 History
Issue
sodium phosphates 19 gram-7 118 ml ME DAILYPRN PRN if no bm 04/02/25 04/12/25 Unknown History
gram/118 mL enema (Fleet Enema) aftr dulcoalx
tamsulosin 0.4 mg capsule (Flomax) 0.4 mg PO HS Transplant 04/02/25 04/12/25 04/11/25 History
therapeutic multivitamin 1 tab PO DAILY Supplement 04/02/25 04/12/25 04/11/25 History
tiotropium bromide 18 mcg capsule 1 cap inhalation R DAILY 04/02/25 04/12/25 04/11/25 History
with inhalation device Lung/Breathing Issues
furosemide 40 mg tablet 40 mg PO BID AT 0800,1600 30 days 04/06/25 04/12/25 04/11/25 Rx
#60 tabs
potassium chloride 20 mEq 20 meq PO DAILY Supplement 04/12/25 04/12/25 04/11/25 History
tablet,extended release
zinc oxide 12 % topical cream 1 applic topical Q8 bilateral 04/12/25 04/12/25 Unknown History
([place] Protect (zinc oxide)) buttocks rash
Review of Systems
-
History Source: Patient
All other systems: Negative unless noted
Vitals / Labs / Diagnostic Testing
Vital Signs
Temp Pulse Resp BP Pulse Ox
97.5 F 75 18 110/75 97
04/13/25 07:20 04/13/25 07:32 04/13/25 07:32 04/13/25 07:20 04/13/25 07:32
Lab Data
04/13/25 07:14
04/13/25 07:14
Microbiology
04/12/25 14:56 Pleural Fluid Body Fluid Culture - Preliminary
No Growth After 18-24 Hours
04/12/25 14:56 Pleural Fluid Gram Stain - Preliminary
Diagnostic Testing:
Physical Exam
-
HEENT: Normocephalic
Cardiovascular: S1/S2
Respiratory: Other (Decreased breath sounds bilaterally)
GI: Soft and Non Distended
Neurology: Awake, No Motor Deficits and Other (Underlying dementia)
Skin: Warm
General: Comfortable
Assessment
-
89-year-old man with history of dementia, multiple comorbidities including heart failure with reduced ejection fraction, recently underwent thoracentesis on the right on 04/03/2025 yielding 1500 cc of serous fluid. Transudate.
Cardiac ejection fraction 37%.
We were consulted for evaluation of pleural effusion.
-
Hypoxemic respiratory failure from 2 L up to 6 L due to heart failure acute on chronic with reduced ejection fraction.
Bilateral pleural effusions: Likely due to acute on chronic heart failure with reduced ejection fraction
Status post thoracentesis 04/02/2025: Right
Status post thoracentesis right 04/12/2025: 1007 to 50 cc of straw-colored fluid-transudate.
Increased proBNP
Acute on chronic hypoxemic respiratory failure currently 6 L.
Conditions present prior admission:
Bilateral heel pressure ulcer stage I/sacrum present on admission
Paroxysmal atrial fibrillation
Pacemaker in place
Chronic kidney disease stage III
Moderate aortic stenosis/moderate to severe MR
Enterococcus faecalis bacteremia on ampicillin diagnosed at [facility]
Peripheral vascular disease
? COPD/pulmonary fibrosis-on a Spiriva
Does not follow-up locally
Hypertension
Hyperlipidemia
Chronic anemia-possibly of chronic disease
Alzheimer's dementia
Heart failure with reduced ejection fraction
BPH
GERD
Chronic hypoxemic respiratory failure due to COPD 2 L on Spiriva
Assessment and plan:
Clinical picture consistent with recurrent heart failure-readmitted in the short-term.
CT scan consistent with volume overload with bilateral pleural effusion increased interstitial markings.
Left upper lobe patchy abnormality likely either edema or atelectasis. No evidence for infection.
Pleural fluid: Transudate-likely heart failure and hypoalbuminemia.
Negative cytology.
-
With protein caloric malnutrition, weight loss, underlying COPD chronic hypoxemic respiratory failure and pulmonary fibrosis prognosis is not great.
Cardiology following-on diuresis
Considering discussing goals of care.
-
During my evaluation, initially he was sleeping comfortably almost flat in the bed.
From the COPD perspective: Not in acute exacerbation.
Continue Spiriva for now. Unclear whether he is able to perform adequate maneuver
May consider transition to nebulizers in the future.
Does not follow-up locally.
-
Chronic hypoxemic respiratory failure-acute component due to heart failure and bilateral pleural effusions-->currently on 6L.
Wean down FiO2 as able usually on 2 L nasal cannula.
-
Aspiration precaution.
Head of bed elevation.
-
On ampicillin for Enterococcus faecalis bacteremia to complete antibiotics 04/15/2025. Diagnosed at [facility].
-
DVT prophylaxis with heparin subcu.
-
Poor prognosis.
-
Will continue to follow

Data reviewed:
Echocardiogram 04/03/2025:
Ejection fraction 37%
Moderate aortic stenosis
Left ventricular wall motion is diffusely hypokinetic
Mild LVH
Mild TR. Pulmonary pressure 43 mmHg
Moderate to severe MR.
-
CT chest04/12/2025:
Reviewed, showed moderate to large pleural effusion bilaterally
Increased interstitial markings in both bases pulmonary edema on top of underlying likely some degree of pulmonary fibrosis.
Left upper lobe patchy abnormality small. New compared to previous CAT scan from 04/02/2025.
[2025-04-13 13:52] LABS: Anisocytosis 1+; Microcytosis 1+; Normal RBC Morphology No
[2025-04-13 13:53] LABS: Acanthocytes 1+; Hypochromasia 1+; Target Cells 1+
--- NOTE | 2025-04-13 13:56 | CM ---
Chart reviewed. Patient admitted from [facility] ([facility]). Patient and spouse would like for him to return for rehab.
Therapy assessed, recommending SNF for patient
Spoke w/ Miriam/[facility] admissions, agreeable to accept patient back for rehab, however, will call spouse to discuss LTC
Referral sent to [facility] in [place]
Plan: [facility] SNF when medically stable
--- NOTE | 2025-04-13 14:32 | W.PN.CARDCBS ---
Addendum entered and electronically signed by Cecilio Garcia MD 04/13/25 18:36:
89-year-old male discharged 04/06/2025 for acute on chronic HFrEF, readmitted now with the same
PMH/PSH: Dementia, CAD, HFrEF, COPD/pulmonary fibrosis, moderate aortic stenosis, moderate-severe mitral regurgitation with MAC ICD/MICROARRAY SPECIALIST, PAD, hypertension, paroxysmal A-fib, GERD
Medications: Reviewed
131/64, pulse 80, respiratory 20, afebrile weight is 60.4 kg, if accurate down over 4 kg, resting comfortably, mostly asleep, lungs seem clear with a few crackles in the bases, loud MR murmur, patient examined in the right lateral decubitus position,
Hemoglobin 9.7, platelets are 182, BUN and creatinine are 13 and 0.8, CO2 is 35
Impression:
Acute on chronic HFrEF with bilateral pleural effusions
s/p 1650 cc via R thoracentesis today 04/12/2025
s/p 1.5 L removed by right sided thoracentesis 5Acute HFrEF, proBNP 3600CM with EF 37% on echo 04/03/2025
Recent admission to [facility] heart failure, bacteremia sent to [facility] 03/29/2025
Coronary artery disease
Carotid disease
Peripheral arterial disease
Heart failure with reduced ejection fraction
Medtronic Claria MRI Quad MICROARRAY SPECIALIST-ICD implanted 08/[address] Kyle Swift
Hypertension
Paroxysmal atrial fibrillation
Chronic kidney disease stage III
COPD
Pulmonary fibrosis
Type 2 diabetes
Dementia
GERD
COPD
Moderate with mean gradient 16 mmHg by echo 04/03/2025
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
Plan:
Overall improved from a volume standpoint despite innumerable medical comorbidities and cardiac issues.
Okay to transition to oral furosemide in AM.
Add spironolactone, may reduce likelihood of recurrent admissions
Consider SGLT2 antagonist -not clear that there is a contraindication, and may reduce likelihood of recurrent admissions
Underlying rhythm may be atrial fibrillation, may be persistent and not paroxysmal, if not recently done we should interrogate ICD if patient here for the weekend
Original Note:
Today's Communication / Plan
-
cont diuresis
repleting K
wean down O2
Impression / Plan
-
Family Physician: Kehinde Berger
Impression:
Presented 04/12/2025 with shortness of breath
Hypoxemia
Bilateral pleural effusions right greater than left
-s/p 1650 cc removed R thoracentesis today 04/12/2025
s/p 1.5 L removed by right sided thoracentesis 04/03/2025
Acute HFrEF, proBNP 3600
CM with EF 37% on echo 04/03/2025
Hypokalemia
Recent admission to [facility] for heart failure, bacteremia sent to [facility] 03/29/2025
Coronary artery disease
Carotid disease
Peripheral arterial disease
Heart failure with reduced ejection fraction
Medtronic Claria MRI Quad MICROARRAY SPECIALIST-ICD implanted 08/24/[address] Kyle Swift
Hypertension
Paroxysmal atrial fibrillation
Chronic kidney disease stage III
COPD
Pulmonary fibrosis
Type 2 diabetes
Dementia
GERD
COPD
Moderate with mean gradient 16 mmHg by echo 04/03/2025
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
Echo 04/03/2025: EF 37%, moderate with mean gradient 16 mmHg and ARIANNE 1.2 cm sq, mild concentric LVH, mild TR, moderate to severe MR with dense MAC
Plan:
-Patient presented to [facility] ED 04/12/2025 with acute heart failure with elevated proBNP, B/L pleural effusion on imaging, weight up at least 3 pounds, possibly 8 pounds depending on scale compared to recent discharge 04/06/2025
-Status post right thoracentesis for 1650 cc 04/12/2025
-Weight down 10 pounds overnight to 133 pounds, and now below discharge weight from last admission for heart failure in late March.
-Increasing oxygen requirement today, was on 2L, now on 6L.
- May need higher dose of oral Lasix on discharge.
-K 3.2 and repletion has already been ordered by hospitalist with increasing KCl to 20 meq bid
-Creatinine stable at 0.8
-Could consider addition of spironolactone to help with heart failure reduced EF as well as hypokalemia
-EF 37% by echo 04/03/2025 along with moderate and moderate to severe MR. It is unknown what his baseline EF is, we had previously requested records from his admission to [facility] 2-3 weeks ago.
-Patient has Medtronic MICROARRAY SPECIALIST ICD: Device interrogated last hospitalization last week which shows appropriate leads and thresholds. There have been no ventricular or atrial arrhythmias. Patient is BiV paced at 97.7%. There is 13 months
-Outpatient dose of Coreg 3.125 mg BID has been continued
-Patient is not chronically on MAHESH/ARB/ARNI or aldosterone antagonist for unclear reasons. No obvious allergies, but could be due to hypotension. Blood pressure continues to allow for initiation
- EKG personally reviewed, V-paced
Progress Note - Varnish Finisher
Subjective
Date of Service: April 13, 2025
lying almost flat in bed, on his side, and breathing comfortable
denies SOB
Objective
Labs:
04/13/25 07:14
04/13/25 07:14
Labs
Hgb 9.7 g/dL (13.0-18.0) L 04/13/25 07:14
Hct 31.8 % (39.0-52.0) L 04/13/25 07:14
Plt Count 182 10^3/uL (130-400) 04/13/25 07:14
Sodium 139 mmol/L (135-145) 04/13/25 07:14
Potassium 3.2 mmol/L (3.5-5.1) L 04/13/25 07:14
BUN 13 mg/dl (9-20) 04/13/25 07:14
Creatinine 0.8 mg/dL (0.7-1.3) 04/13/25 07:14
Glucose 77 mg/dl (70-99) 04/13/25 07:14
Troponins
04/12/25
09:39
Troponin I 0.025
Vital Signs and I&O:
Vital Signs
Temp Pulse Resp BP Pulse Ox
97.1 F 71 18 101/47 100
04/13/25 11:50 04/13/25 11:50 04/13/25 11:50 04/13/25 11:50 04/13/25 11:50
Vital Signs
Temp Pulse Resp BP Pulse Ox
97.1 F 71 18 101/47 100
04/13/25 11:50 04/13/25 11:50 04/13/25 11:50 04/13/25 11:50 04/13/25 11:50
Intake & Output
04/11/25 04/12/25 04/13/25 04/14/25
06:59 06:59 06:59 06:59
Intake Total 108 / 108
Output Total 975 / 975 325 / 325
Balance -975 / -975 -217 / -217
Physical Exam
Physical Exam
GEN: No distress, awake, Ox3
HEENT: supple, anicteric, mmm
LUNGS: decreased at bases
CV: Reg, S1/S2, 2/6 systolic murmur
ABD: soft, BS+, NT/ND
EXT: No edema
NEURO: Gross non-focal
SKIN: No rash
[2025-04-13] MEDS: TRIPLE PASTE 1 APPLIC TOPICAL (15:21)
[2025-04-13] MEDS: FLUSH (NSS) 1 FLUSH IV ×2 (15:22→20:50)
[2025-04-13] MEDS: LASIX 40 MG PO (15:42)
[2025-04-13] MEDS: CRESTOR 20 MG PO (20:51)
[2025-04-13] MEDS: REMERON 7.5 MG PO (20:51)
[2025-04-13] MEDS: FLOMAX 0.4 MG PO (20:52)
[2025-04-14] VITALS (7 sets, daily range): BP systolic 96–114; BP diastolic 42–53; BMI 18.9
[2025-04-14] MEDS: TRIPLE PASTE 1 APPLIC TOPICAL (00:30)
[2025-04-14] MEDS: AMPICILLIN 108 MG IV ×6 (02:29→22:02)
[2025-04-14] MEDS: FLUSH (NSS) 2 FLUSH IV ×3 (02:30→22:03)
[2025-04-14 04:30] LABS: Hematocrit 29.0 % (39.0-52.0); Hemoglobin 9.0 g/dL (13.0-18.0); Mean Corp Hgb Conc. 31.0 g/dL (33.0-37.0); Mean Corpuscular Volume 86.6 fL (80.0-94.0); Nucleated Red Blood Cells % 0 % (-); Platelet Count 192 10^3/uL (130-400); Red Cell Dist. Width 22.7 % (11.5-14.5)
[2025-04-14 04:31] LABS: ALT (SGPT) 13 U/L (0-50); AST (SGOT) 29 U/L (17-59); Albumin 2.7 g/dl (3.5-5.0); Alkaline Phosphatase 52 U/L (38-126); Blood Urea Nitrogen 14 mg/dl (9-20); Calcium 8.3 mg/dl (8.4-10.2); Carbon Dioxide 34 mmol/L (22-30); Chloride 103 mmol/L (98-107); Estimated Creatinine Clearance 55 ml/min; Glucose 86 mg/dl (70-99); Potassium 3.3 mmol/L (3.5-5.1); Sodium 139 mmol/L (135-145); Total Protein 5.2 g/dl (6.3-8.2); eGFR > 60.00
[2025-04-14] MEDS: SPIRIVA RESPIMAT 2.5 MCG 2 PUFF INH (07:38)
--- NOTE | 2025-04-14 09:08 | W.PN.HOSP.TC ---
Today's Communication/Plan
-
c/w Lasix, Aldactone.
PT/OT
Assessment / Plan
Assessment / Plan
Physical exam:
General: Chronically ill looking, underweight.
HEENT: Normocephalic, Atraumatic and Moist Mucous Membranes
Respiratory: Decreased breath sounds bilaterally; Negative Wheezes, Rales or Rhonchi
Cardiac: Regular Rhythm and S1/S2, systolic murmur
GI: Soft, Nontender and Nondistended
; No Dunn
Musculoskeletal: muscle atrophy noted. No Edema
Neuro: Awake, Alert and Disoriented, followed commands.
Psych: Julius, apparent dementia, Limited judgment and insight
A/P;
# Acute on chronic HFrEF/ systolic congestive heart failure/ Moderate aortic stenosis and moderate to severe mitral valve regurgitation and mild tricuspid regurgitation:
s/p IV Lasix 40 mg twice a day, on oral Lasix. Added Aldactone.
Reviewed echocardiogram
GDMT--> on carvedilol only 3.125 mg twice a day.
Appreciate cardiology help
# Bilateral pleural effusion
Recurrent issue
s/p R thoracentesis this time
Status post right thoracentesis on 04/03
Transudative
Consulted pulmonary, appreciate help
#Hypokalemia:
Replaced.
# Acute on chronic hypoxic respiratory failure
Diuresis
Oxygen supplementation to baseline ( 2 liters)
E faecalis bacteremia:
On IV ampicillin and ceftriaxone-->through 04/15
No gross vegetations
ID consulted recently
History of toxic Metabolic encephalopathy on underlying dementia
Dementia Alzheimer's type:
Continue to monitor mental status and behavior
CT of the head no acute intracranial abnormalities
Continue to monitor mental status and behavior
Paroxysmal A-fib:
Continue beta-blockers
On Plavix
PPM in place
Known COPD:
Bronchodilators as needed
CAD/PVD:
On antiplatelets and statins
Hypertension:
Continue current antihypertensive
Hyperlipidemia:
Continue statin
GERD:
On PPI
BPH:
On Flomax and finasteride
DVT prophylaxis:
Heparin SQ
CODE STATUS:
Full code
Total time spent to see the patient, examine the patient, review data and lab result, discuss treatment plan with patient, nursing staff around 55 minutes
Anticipated Discharge: 24 - 48 hours
Subjective/Interval History
-
Date of Service: April 14, 2025
No chest pain
No sob
No fevers
Objective Data
-
Labs:
Laboratory Results
04/14/25
03:42
WBC 5.3
Hgb 9.0 L
Hct 29.0 L
Plt Count 192
Sodium 139
Potassium 3.3 L
Chloride 103
Carbon Dioxide 34 H
BUN 14
Creatinine 0.8
Glucose 86
Calcium 8.3 L
Total Bilirubin 0.4
AST 29
ALT 13
Alkaline Phosphatase 52
Vital Signs:
Vital Signs
Temp Pulse Resp BP Pulse Ox
97.6 F 75 20 114/53 98
04/14/25 07:10 04/14/25 07:40 04/14/25 07:40 04/14/25 07:10 04/14/25 07:40
I&O
04/13/25 04/14/25 04/15/25
06:59 06:59 06:59
Intake Total 708 / 708
Output Total 975 / 975 950 / 950
Balance -975 / -975 -242 / -242
[2025-04-14] MEDS: COREG 3.125 MG PO ×2 (10:52→21:10)
[2025-04-14] MEDS: ALDACTONE 12.5 MG PO (10:52)
[2025-04-14] MEDS: LASIX 40 MG PO ×2 (10:52→16:36)
[2025-04-14] MEDS: OSCAL 500 + D 500 MG PO (10:52)
[2025-04-14] MEDS: PROSCAR 5 MG PO (10:52)
[2025-04-14] MEDS: KCL 20 MEQ PO ×2 (10:52→21:11)
[2025-04-14] MEDS: THERAGRAN 1 TABLET PO (10:52)
[2025-04-14] MEDS: PLAVIX 75 MG PO (10:52)
[2025-04-14] MEDS: PROTONIX 40 MG PO (10:52)
[2025-04-14] MEDS: HEPARIN 5000 UNITS SC ×2 (10:53→21:11)
[2025-04-14] MEDS: SENOKOT 17.2 MG PO (10:53)
[2025-04-14] MEDS: ROCEPHIN 2000 MG IV ×2 (10:54→21:12)
[2025-04-14] MEDS: STERILE WATER FOR INJECTION 20 ML IV ×2 (10:55→21:12)
--- NOTE | 2025-04-14 11:10 | W.CARD.DEVCH ---
Cardiac Device Check
-
Device: Implanted Cardioverter-Defibrillator
Water Server: Medtronic
The patient's device was interrogated with assistance of the device access service representative followed by a complete physician review. The device had normal function.
Patient's Medtronic FUR POLISHER-D was interrogated by me via [employer] on 04/14/2025 and I then reviewed the device report which shows underlying SR, battery longevity of over 5 years, OptiVol was trending at early March and now plateaued, V paced
96.8% of the time. Normal device and lead function. No changes made
--- NOTE | 2025-04-14 12:35 | W.PN.CARDCBS ---
Today's Communication / Plan
-
He is euvolemic.
Continue oral Lasix.
We interrogated his device he remains in sinus rhythm additionally device diagnostics find that he is not volume overloaded.
Will sign off. Please call back if we can be of further assistance
Impression / Plan
-
Family Physician: Kehinde Berger
Impression:
Presented 04/12/2025 with shortness of breath
Hypoxemia
Bilateral pleural effusions right greater than left
-s/p 1650 cc removed R thoracentesis today 04/12/2025
s/p 1.5 L removed by right sided thoracentesis 04/03/2025
Acute HFrEF, proBNP 3600
CM with EF 37% on echo 04/03/2025
Hypokalemia
Recent admission to [facility] for heart failure, bacteremia sent to [facility] 03/29/2025
Coronary artery disease
Carotid disease
Peripheral arterial disease
Heart failure with reduced ejection fraction
Medtronic Claria MRI Quad HOST HOSTESS-ICD implanted 08/[address] Kyle Swift
Hypertension
Paroxysmal atrial fibrillation
Chronic kidney disease stage III
COPD
Pulmonary fibrosis
Type 2 diabetes
Dementia
GERD
COPD
Moderate with mean gradient 16 mmHg by echo 04/03/2025
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
Echo 04/03/2025: EF 37%, moderate with mean gradient 16 mmHg and ARIANNE 1.2 cm sq, mild concentric LVH, mild TR, moderate to severe MR with dense MAC
Plan:
-Patient presented to [facility] ED 04/12/2025 with acute heart failure with elevated proBNP, B/L pleural effusion on imaging, weight up at least 3 pounds, possibly 8 pounds depending on scale compared to recent discharge 04/06/2025
Status post right thoracentesis for 1650 cc 04/12/2025
Weight down 12 pounds from admission weight
Overall improved from a volume standpoint despite multiple medical comorbidities and cardiac issues.
Now on oral furosemide.
Keep K 4-5 and Mg 2-3
Spironolactone added this adm, may reduce likelihood of recurrent admissions
Maintain carvedilol 3.125 mg p.o. twice daily
Consider SGLT2 antagonist -not clear that there is a contraindication, and may reduce likelihood of recurrent admissions
Patient has Medtronic HOST HOSTESS ICD: Device interrogated last hospitalization last week which shows appropriate leads and thresholds. There have been no ventricular or atrial arrhythmias. Patient is BiV paced at 97.7%. There is 13 months
Device interrogated again via [employer] to reassess rhythm.
Rhythm is sinus.
Furthermore thoracic impedance (Optivol) while suggestive of volume overload in early March has now normalized.
Overall stable on current medical therapy from a cardiac standpoint.
Will sign off.
Please call us if we can be of any further assistance.
Progress Note - Supervisor Rein[employer] Placing
Subjective
Date of Service: April 14, 2025
Tells me that he feels well. Not short of breath and no chest pain.
Objective
Labs:
04/14/25 03:42
04/14/25 03:42
Labs
Hgb 9.0 g/dL (13.0-18.0) L 04/14/25 03:42
Hct 29.0 % (39.0-52.0) L 04/14/25 03:42
Plt Count 192 10^3/uL (130-400) 04/14/25 03:42
Sodium 139 mmol/L (135-145) 04/14/25 03:42
Potassium 3.3 mmol/L (3.5-5.1) L 04/14/25 03:42
BUN 14 mg/dl (9-20) 04/14/25 03:42
Creatinine 0.8 mg/dL (0.7-1.3) 04/14/25 03:42
Glucose 86 mg/dl (70-99) 04/14/25 03:42
Troponins
04/12/25
09:39
Troponin I 0.025
Vital Signs and I&O:
Vital Signs
Temp Pulse Resp BP Pulse Ox
97.6 F 75 20 114/53 98
04/14/25 07:10 04/14/25 07:40 04/14/25 07:40 04/14/25 07:10 04/14/25 07:40
Vital Signs
Temp Pulse Resp BP Pulse Ox
97.6 F 75 20 114/53 98
04/14/25 07:10 04/14/25 07:40 04/14/25 07:40 04/14/25 07:10 04/14/25 07:40
Intake & Output
04/12/25 04/13/25 04/14/25 04/15/25
06:59 06:59 06:59 06:59
Intake Total 708 / 708
Output Total 975 / 975 950 / 950
Balance -975 / -975 -242 / -242
Physical Exam
Physical Exam
GEN: No distress, awake, Ox3
HEENT: supple, anicteric, mmm
LUNGS: decreased at bases
CV: Reg, S1/S2, 2/6 systolic murmur
ABD: soft, BS+, NT/ND
EXT: No edema
NEURO: Gross non-focal
SKIN: No rash
--- NOTE | 2025-04-14 13:38 | W.PN.PUL3 ---
Today's Communication / Plan
-
- Wean O2 as tolerated
- Pulmonary team will sign off, please call as needed.
Assessment
-
89-year-old man with history of dementia, multiple comorbidities including heart failure with reduced ejection fraction, recently underwent thoracentesis on the right on 04/03/2025 yielding 1500 cc of serous fluid. Transudate.
Cardiac ejection fraction 37%.
We were consulted for evaluation of pleural effusion.
-
Hypoxemic respiratory failure from 2 L up to 6 L due to heart failure acute on chronic with reduced ejection fraction.
Bilateral pleural effusions: Likely due to acute on chronic heart failure with reduced ejection fraction
Status post thoracentesis 04/02/2025: Right
Status post thoracentesis right 04/12/2025: 1007 to 50 cc of straw-colored fluid-transudate.
Increased proBNP
Acute on chronic hypoxemic respiratory failure currently 6 L.
Conditions present prior admission:
Bilateral heel pressure ulcer stage I/sacrum present on admission
Paroxysmal atrial fibrillation
Pacemaker in place
Chronic kidney disease stage III
Moderate aortic stenosis/moderate to severe MR
Enterococcus faecalis bacteremia on ampicillin diagnosed at [facility]
Peripheral vascular disease
? COPD/pulmonary fibrosis-on a Spiriva
Does not follow-up locally
Hypertension
Hyperlipidemia
Chronic anemia-possibly of chronic disease
Alzheimer's dementia
Heart failure with reduced ejection fraction
BPH
GERD
Chronic hypoxemic respiratory failure due to COPD 2 L on Spiriva
Assessment and plan:
Clinical picture consistent with recurrent heart failure-readmitted in the short-term.
CT scan consistent with volume overload with bilateral pleural effusion increased interstitial markings.
Left upper lobe patchy abnormality likely either edema or atelectasis. No evidence for infection.
Pleural fluid: Transudate-likely heart failure and hypoalbuminemia.
Negative cytology.
-
With protein caloric malnutrition, weight loss, underlying COPD chronic hypoxemic respiratory failure and pulmonary fibrosis prognosis is not great.
Cardiology following-on diuresis
Considering discussing goals of care.
-
From the COPD perspective: Not in acute exacerbation. No wheezing on exam.
Continue Spiriva for now. Unclear whether he is able to perform adequate maneuver
May consider transition to nebulizers in the future.
Does not follow-up locally.
-
Chronic hypoxemic respiratory failure-acute component due to heart failure and bilateral pleural effusions
Wean down FiO2 as able usually on 2 L nasal cannula.
-
Aspiration precaution.
Head of bed elevation.
-
On ampicillin for Enterococcus faecalis bacteremia to complete antibiotics 04/15/2025. Diagnosed at [facility].
-
DVT prophylaxis with heparin subcu.
-
Poor prognosis.
-
Pulmonary team will sign off, please call as needed

Data reviewed:
Echocardiogram 04/03/2025:
Ejection fraction 37%
Moderate aortic stenosis
Left ventricular wall motion is diffusely hypokinetic
Mild LVH
Mild TR. Pulmonary pressure 43 mmHg
Moderate to severe MR.
-
CT chest04/12/2025:
Reviewed, showed moderate to large pleural effusion bilaterally
Increased interstitial markings in both bases pulmonary edema on top of underlying likely some degree of pulmonary fibrosis.
Left upper lobe patchy abnormality small. New compared to previous CAT scan from 04/02/2025.
Subjective Data
-
Date of Service:
Date of Service: April 14, 2025
Subjective:
Comfortably sitting in bed, no acute distress
Review of Systems
Genitourinary: Other (No new symptoms reported)
Objective Data
Data Reviewed
Vital Signs / I&O / Oxygen:
Vital Signs
Temp Pulse Resp BP Pulse Ox
98.0 F 76 16 102/42 98
04/14/25 11:45 04/14/25 11:45 04/14/25 11:45 04/14/25 11:45 04/14/25 11:45
Intake and Output
04/13/25 04/14/25 04/15/25
06:59 06:59 06:59
Intake Total 708 / 708
Output Total 975 / 975 950 / 950
Balance -975 / -975 -242 / -242
SaO2 98
Nasal Cannula flow liters per 4
minute
Physical Exam
General: Comfortable
HEENT: Normocephalic
Cardiovascular: S1-S2
Respiratory: Clear
GI: Soft
Neurology: Awake and Alert
Skin: Warm
Labs/Micro/Reports
Lab Data
04/14/25 03:42
04/14/25 03:42
Microbiology
04/12/25 14:56 Pleural Fluid Body Fluid Culture - Preliminary
No Growth After 48 Hours
04/12/25 14:56 Pleural Fluid Gram Stain - Preliminary
[2025-04-14] MEDS: TRIPLE PASTE TOPICAL ×3 (16:45→23:19)
[2025-04-14] MEDS: REMERON 7.5 MG PO (21:12)
[2025-04-14] MEDS: FLOMAX 0.4 MG PO (21:12)
[2025-04-14] MEDS: CRESTOR 20 MG PO (21:12)
[2025-04-15] MEDS: FLUSH (NSS) 2 FLUSH IV ×2 (02:04→06:12)
[2025-04-15] MEDS: AMPICILLIN 108 MG IV ×6 (02:04→23:25)
[2025-04-15 03:04] VITALS: BP 101/48
[2025-04-15 06:00] VITALS: BMI 19.0
[2025-04-15 06:40] LABS: ALT (SGPT) 14 U/L (0-50); AST (SGOT) 33 U/L (17-59); Albumin 2.8 g/dl (3.5-5.0); Alkaline Phosphatase 56 U/L (38-126); Blood Urea Nitrogen 14 mg/dl (9-20); Calcium 8.6 mg/dl (8.4-10.2); Carbon Dioxide 36 mmol/L (22-30); Chloride 101 mmol/L (98-107); Estimated Creatinine Clearance 50 ml/min; Glucose 95 mg/dl (70-99); Potassium 3.8 mmol/L (3.5-5.1); Sodium 139 mmol/L (135-145); Total Protein 5.5 g/dl (6.3-8.2); eGFR > 60.00
[2025-04-15 07:10] VITALS: BP 114/61
[2025-04-15] MEDS: SPIRIVA RESPIMAT 2.5 MCG 2 PUFF INH (07:50)
--- NOTE | 2025-04-15 09:20 | W.PN.HOSP.TC ---
Addendum entered and electronically signed by Kaiser Dumas MD 04/15/25 11:22:
Addendum
Called again today. Informed her that today will be the last day for IV antibiotics and we should be able to remove PICC line on Wednesday.
was questioning discharge planning. Consulted assistant case manager as PT is recommended SNF
is going through chemotherapy for ovarian cancer and will be unable to care for her at home.
End
Original Note:
Today's Communication/Plan
-
Last day for IV Abx
Assessment / Plan
Assessment / Plan
Physical exam:
General: Chronically ill looking, underweight.
HEENT: Normocephalic, Atraumatic and Moist Mucous Membranes
Respiratory: Decreased breath sounds bilaterally R>L ; Negative Wheezes.
Cardiac: Regular Rhythm and S1/S2, systolic murmur
GI: Soft, Nontender and Nondistended
; No Dunn
Musculoskeletal: muscle atrophy noted. No Edema
Neuro: Awake, Alert and Disoriented, followed commands.
Psych: Julius, apparent dementia, Limited judgment and insight
A/P;
# Acute on chronic HFrEF/ systolic congestive heart failure/ Moderate aortic stenosis and moderate to severe mitral valve regurgitation and mild tricuspid regurgitation:
s/p IV Lasix 40 mg twice a day, on oral Lasix. Added Aldactone.
Reviewed echocardiogram
GDMT--> on carvedilol only 3.125 mg twice a day.
Appreciate cardiology help
# Bilateral pleural effusion
Recurrent issue
s/p R thoracentesis this time
Status post right thoracentesis on 04/03
Transudative
Consulted pulmonary, appreciate help
#Hypokalemia:
Replaced.
# Acute on chronic hypoxic respiratory failure
Diuresis
Oxygen supplementation to baseline ( 2 liters)
E faecalis bacteremia:
On IV ampicillin and ceftriaxone-->through 04/15
No gross vegetations
ID consulted recently
History of toxic Metabolic encephalopathy on underlying dementia
Dementia Alzheimer's type:
No agitation
Continue to monitor mental status and behavior
CT of the head no acute intracranial abnormalities
Paroxysmal A-fib:
Continue beta-blockers
On Plavix
PPM in place
Known COPD:
Bronchodilators as needed
CAD/PVD:
On antiplatelets and statins
Hypertension:
Continue current antihypertensive
Hyperlipidemia:
Continue statin
GERD:
On PPI
BPH:
On Flomax and finasteride
DVT prophylaxis:
Heparin SQ
CODE STATUS:
Full code
Total time spent to see the patient, examine the patient, review data and lab result, discuss treatment plan with patient, nursing staff around 55 minutes
Anticipated Discharge: Within 24 hours
Subjective/Interval History
-
Date of Service: April 15, 2025
Patient denies chest pain or sob
Objective Data
-
Labs:
Laboratory Results
04/15/25
05:49
Sodium 139
Potassium 3.8
Chloride 101
Carbon Dioxide 36 H
BUN 14
Creatinine 0.9
Glucose 95
Calcium 8.6
Total Bilirubin 0.4
AST 33
ALT 14
Alkaline Phosphatase 56
Vital Signs:
Vital Signs
Temp Pulse Resp BP Pulse Ox
98.2 F 76 20 114/61 100
04/15/25 07:10 04/15/25 07:50 04/15/25 07:50 04/15/25 07:10 04/15/25 07:50
I&O
04/14/25 04/15/25 04/16/25
06:59 06:59 06:59
Intake Total 708 / 708 804 / 804
Output Total 950 / 950 825 / 825
Balance -242 / -242 -21 / -21
[2025-04-15] MEDS: TRIPLE PASTE TOPICAL ×2 (10:03→16:52)
[2025-04-15] MEDS: KCL 20 MEQ PO ×2 (10:04→21:18)
[2025-04-15] MEDS: LASIX 40 MG PO ×2 (10:04→16:47)
[2025-04-15] MEDS: THERAGRAN 1 TABLET PO (10:04)
[2025-04-15] MEDS: SENOKOT 17.2 MG PO (10:04)
[2025-04-15] MEDS: PROSCAR 5 MG PO (10:05)
[2025-04-15] MEDS: STERILE WATER FOR INJECTION 20 ML IV ×2 (10:05→21:18)
[2025-04-15] MEDS: ROCEPHIN 2000 MG IV ×2 (10:05→21:18)
[2025-04-15] MEDS: COREG 3.125 MG PO ×2 (10:05→21:17)
[2025-04-15] MEDS: PLAVIX 75 MG PO (10:05)
[2025-04-15] MEDS: OSCAL 500 + D 500 MG PO (10:05)
[2025-04-15] MEDS: ALDACTONE 12.5 MG PO (10:05)
[2025-04-15] MEDS: PROTONIX 40 MG PO (10:05)
[2025-04-15] MEDS: HEPARIN 5000 UNITS SC ×2 (10:12→21:17)
[2025-04-15 11:05] VITALS: BP 153/83
[2025-04-15 15:10] VITALS: BP 106/51
[2025-04-15 20:53] VITALS: BP 125/48
[2025-04-15] MEDS: CRESTOR 20 MG PO (21:17)
[2025-04-15] MEDS: REMERON 7.5 MG PO (21:17)
[2025-04-15] MEDS: FLOMAX 0.4 MG PO (21:18)
[2025-04-15] MEDS: TRIPLE PASTE 1 APPLIC TOPICAL (23:25)
[2025-04-16] VITALS (7 sets, daily range): BP systolic 105–126; BP diastolic 45–96; BMI 18.4
[2025-04-16] MEDS: AMPICILLIN 108 MG IV ×4 (02:58→15:09)
[2025-04-16 05:32] LABS: ALT (SGPT) 14 U/L (0-50); AST (SGOT) 32 U/L (17-59); Albumin 2.8 g/dl (3.5-5.0); Alkaline Phosphatase 54 U/L (38-126); Blood Urea Nitrogen 11 mg/dl (9-20); Calcium 8.6 mg/dl (8.4-10.2); Carbon Dioxide 36 mmol/L (22-30); Chloride 102 mmol/L (98-107); Estimated Creatinine Clearance 56 ml/min; Glucose 92 mg/dl (70-99); Potassium 3.6 mmol/L (3.5-5.1); Sodium 139 mmol/L (135-145); Total Protein 5.4 g/dl (6.3-8.2); eGFR > 60.00
[2025-04-16] MEDS: SPIRIVA RESPIMAT 2.5 MCG 2 PUFF INH (07:44)
[2025-04-16] MEDS: COREG 3.125 MG PO ×2 (08:54→23:38)
[2025-04-16] MEDS: ROCEPHIN 2000 MG IV (08:54)
[2025-04-16] MEDS: PROSCAR 5 MG PO (08:54)
[2025-04-16] MEDS: PROTONIX 40 MG PO (08:54)
[2025-04-16] MEDS: SENOKOT 17.2 MG PO (08:54)
[2025-04-16] MEDS: LASIX 40 MG PO ×2 (08:54→15:09)
[2025-04-16] MEDS: STERILE WATER FOR INJECTION 20 ML IV (08:54)
[2025-04-16] MEDS: THERAGRAN 1 TABLET PO (08:54)
[2025-04-16] MEDS: KCL 20 MEQ PO ×2 (08:54→20:18)
[2025-04-16] MEDS: PLAVIX 75 MG PO (08:55)
[2025-04-16] MEDS: ALDACTONE 12.5 MG PO (08:55)
[2025-04-16] MEDS: HEPARIN 5000 UNITS SC ×2 (08:55→20:17)
[2025-04-16] MEDS: OSCAL 500 + D 500 MG PO (08:55)
[2025-04-16] MEDS: TRIPLE PASTE 1 APPLIC TOPICAL ×2 (09:01→23:39)
[2025-04-16] MEDS: TYLENOL 650 MG PO (10:51)
--- NOTE | 2025-04-16 11:45 | CM ---
Addendum entered by Deedee Ferrer 04/16/25 15:09:
CM spoke with patient and confirmed that physician could speak with patient daughter. Email sent to patient daughter with [email or web address] information and listing of options. Physician will reach out to daughter when able. CM will continue to
follow for discharge planning needs
Original Note:
[facility] patient unable to [facility], CM spoke with patient and referrals sent to [facility] with [facility] await response. CM will continue to follow for discharge planning needs.
Plan; SNF
[2025-04-16 13:48] LABS: Urine Character Clear (Clear)
[2025-04-16 13:56] LABS: Urine Squamous Cell 0-2 /LPF (Few)
--- NOTE | 2025-04-16 15:19 | W.PN.HOSP.TC ---
Today's Communication/Plan
-
follow bladder scan
cont ABX
PT/OT
d/c planning
Assessment / Plan
Assessment / Plan
pt is an 89 year old male
Acute on chronic HFrEF/systolic congestive heart failure/ Moderate aortic stenosis and moderate to severe mitral valve regurgitation and mild tricuspid regurgitation--remains on O2--on oral lasix and aldactone--device interrogated by cards--NOT in
volume overload but did receive IV lasix--ECHO from 04/03/25 shows decreased EF at 37% with moderate aortic stenosis and Moderate to severe mitral valve regurgitation--cont GDMT as able
Bilateral pleural effusion--Recurrent issue--s/p R thoracentesis 04/12/25 with 1650mls removed, transudative--remains on O2--apprec pulm
Hypokalemia--replete as needed
Acute on chronic hypoxic respiratory failure--s/p Diuresis--Oxygen supplementation to baseline ( 2 liters)
E. faecalis bacteremia-- diagnosed at [facility]?--On IV ampicillin and ceftriaxone-->through 04/15
History of toxic Metabolic encephalopathy on underlying dementia
Dementia Alzheimer's type--follow--no behaviors noted--CT of the head no acute intracranial abnormalities
Paroxysmal A-fib--Continue beta-blockers--On Plavix--PPM in place
Known COPD, no exacerbation--Bronchodilators as needed
CAD/PVD--On antiplatelets and statins
Essential Hypertension--Continue current antihypertensive
Hyperlipidemia--Continue statin
GERD--On PPI
BPH--On Flomax and finasteride
DVT prophylaxis--Heparin SQ
CODE STATUS--Full code--overall prognosis not great--should revisit [facility]
Anticipated Discharge: 24 - 48 hours
Subjective/Interval History
-
Date of Service: April 16, 2025
pt was c/o of shoulder pain BUT pt was being st cath'd and all pain has subsided--400mls drained
Objective Data
-
Labs:
Laboratory Results
04/16/25
04:36
Sodium 139
Potassium 3.6
Chloride 102
Carbon Dioxide 36 H
BUN 11
Creatinine 0.8
Glucose 92
Calcium 8.6
Total Bilirubin 0.5
AST 32
ALT 14
Alkaline Phosphatase 54
Vital Signs:
max temp for 24 hours
04/16/25
03:14
Temp 98.0 F
Vital Signs
Temp Pulse Resp BP Pulse Ox
97.6 F 78 22 105/48 98
04/16/25 10:52 04/16/25 10:52 04/16/25 10:52 04/16/25 10:52 04/16/25 10:52
I&O
04/15/25 04/16/25 04/17/25
06:59 06:59 06:59
Intake Total 804 / 804 510 / 510
Output Total 825 / 825 1250 / 1250 800 / 800
Balance -21 / -21 -740 / -740 -800 / -800
Review of Systems
-
All other systems: Reviewed and negative
Genitourinary: Reports Other (retention pain?)
Musculoskeletal: Reports Other (shoulder pain--all over body pain)
Physical Exam
-
General: Appears Chronically Ill and Cachectic (frail appearing male)
HEENT: Normocephalic, Atraumatic and Oxygen
Respiratory: Clear to Auscultation; Negative Wheezes or Rhonchi
Cardiac: Regular Rhythm and S1/S2; Negative Murmur
GI: Soft, Nontender, Nondistended and Normal Bowel Sounds
Musculoskeletal: No Clubbing, No Cyanosis and No Edema
Skin: Other (chronic blanchable red areas)
Neuro: Awake
Psych: Agitated and Apparent Dementia
[2025-04-16] MEDS: TRIPLE PASTE TOPICAL (15:36)
[2025-04-16] MEDS: STERILE WATER FOR INJECTION IV (20:18)
[2025-04-16] MEDS: CRESTOR 20 MG PO (23:38)
[2025-04-16] MEDS: FLOMAX 0.4 MG PO (23:38)
[2025-04-16] MEDS: REMERON 7.5 MG PO (23:38)
[2025-04-17] VITALS (7 sets, daily range): BP systolic 82–113; BP diastolic 43–50; PULSE 76; BMI 18.6
[2025-04-17 04:41] LABS: ALT (SGPT) 13 U/L (0-50); AST (SGOT) 28 U/L (17-59); Albumin 2.7 g/dl (3.5-5.0); Alkaline Phosphatase 54 U/L (38-126); Blood Urea Nitrogen 9 mg/dl (9-20); Calcium 8.8 mg/dl (8.4-10.2); Carbon Dioxide 35 mmol/L (22-30); Chloride 103 mmol/L (98-107); Estimated Creatinine Clearance 48 ml/min; Glucose 86 mg/dl (70-99); Magnesium 2.1 mg/dl (1.6-2.3); Potassium 4.0 mmol/L (3.5-5.1); Sodium 139 mmol/L (135-145); Total Protein 5.3 g/dl (6.3-8.2); eGFR > 60.00
[2025-04-17 04:57] LABS: Hematocrit 29.5 % (39.0-52.0); Hemoglobin 8.9 g/dL (13.0-18.0); Mean Corp Hgb Conc. 30.2 g/dL (33.0-37.0); Mean Corpuscular Volume 86.3 fL (80.0-94.0); Platelet Count 199 10^3/uL (130-400); Red Cell Dist. Width 22.7 % (11.5-14.5)
[2025-04-17] MEDS: SPIRIVA RESPIMAT 2.5 MCG 2 PUFF INH (07:50)
[2025-04-17] MEDS: KCL 20 MEQ PO ×2 (09:27→20:57)
[2025-04-17] MEDS: SENOKOT 17.2 MG PO (09:27)
[2025-04-17] MEDS: THERAGRAN 1 TABLET PO (09:27)
[2025-04-17] MEDS: PLAVIX 75 MG PO (09:29)
[2025-04-17] MEDS: LASIX 40 MG PO ×2 (09:29→16:42)
[2025-04-17] MEDS: OSCAL 500 + D 500 MG PO (09:29)
[2025-04-17] MEDS: ALDACTONE 12.5 MG PO (09:30)
[2025-04-17] MEDS: PROTONIX 40 MG PO (09:30)
[2025-04-17] MEDS: PROSCAR 5 MG PO (09:32)
[2025-04-17] MEDS: HEPARIN 5000 UNITS SC ×2 (09:35→20:57)
[2025-04-17] MEDS: COREG 3.125 MG PO ×2 (09:35→20:56)
[2025-04-17] MEDS: TRIPLE PASTE 1 APPLIC TOPICAL ×2 (09:41→16:43)
--- NOTE | 2025-04-17 09:51 | PN.CDI ---
CDI
- -
CDI:
Physician Documentation Request
Admit Date: 04/12/25 13:36
Dear Pulmonary,
Please review the following and provide your response in the progress notes.
Clinical Indicators:
- 04/14 Pulmonary note indicates protein caloric malnutrition without specificity
- 04/16 Transformer Assembly Supervisor note indicates underweight, BMI 18.4
- 04/16 PN 'cachectic'
Based on the above information and your assessment, which of the following most accurately represents the patient's nutritional status?
Malnutrition (specify if mild, moderate or severe)
Cachexia without malnutrition
Underweight without malnutrition
Other (please specify)
[place] Criteria ([facility] Hospitalist 2017)
2 or more criteria must be present for either
non severe or severe malnutrition
Note that the criteria differs related to the
presence of an acute or chronic illness
Acute Illness Chronic Illness
Energy Intake Non Severe: <75% for >7 days Non Severe: <75% for >1 month
Severe: <50% for >5 days Severe: <75% for >1 month
Weight Loss Non Severe: 1-2% over 1 week Non Severe: 5% over 1 month
5% over 1 month 7.5% over 3 months
7.5% over 3 months 10% over 6 months
1 year N/A 20% over 1 year
Severe: >2% over 1 week Severe: >5% over 1 month
>5% over 1 month >7.5% over 3 months
>7.5% over 3 months >10% over 6 months
1 year N/A >20% over 1 year
Body Fat Non Severe: Mild Decrease Non Severe: Mild Loss
Severe: Moderate Decrease Severe: Severe Loss
Muscle Mass Non Severe: Mild Decrease Non Severe: Mild Loss
Severe: Moderate Decrease Severe: Severe Loss
Fluid Accumulation Non Severe: Mild Accumulation Non Severe: Mild Accumulation
Severe: Moderate to severe Severe: Moderate to severe
accumulation accumulation
Reduced Protective Signal Repairer Helper Strength Non Severe: N/A Non Severe: N/A
Severe: Measurably reduced Severe: Measurably reduced
Additional criteria that can be used to Determine if Mild or Moderate Malnutrition ([employer] Manual 2018)
Mild Moderate Severe
Albumin gm/dl <3.0 gm/dl <2.5 gm/dl <2.0 gm/dl
Pre Albumin mg/dl <15 gm/dl <10 mg/dl <5.0 mg/dl
BMI <18.5 <17 <16
Use of terms such as suspected, likely, concern for, or probable (associated with a specific diagnosis that is being evaluated, monitored, or treated as if it exists) are acceptable and can be coded in the inpatient setting, when documented at the
time of discharge.
Thank you,
Femi Boucher RN
CDI Specialist
Please use your independent medical judgment in providing your response.
--- NOTE | 2025-04-17 11:43 | VATNOTE ---
Contacted by service delivery analyst regaring need for PICC lineIlir MD to see if PICC can be discontinued. MD to place order to D/C PICC and for IR consult to remove.
--- NOTE | 2025-04-17 12:25 | WOUNDNOTE ---
GORDON RN note: Patient admitted with pleural effusions, hypoxia.
See H&P for complete history.
PMH: 89-year-old male past medical history of paroxysmal atrial fibrillation with pacemaker, HFrEF, history of bilateral pleural effusions status post thoracentesis on 04/03 moderate aortic stenosis, moderate to severe mitral regurgitation,
Enterococcus faecalis bacteremia, COPD on 2 L baseline, peripheral vascular disease, hypertension, hyperlipidemia, Alzheimer's dementia, GERD, BPH, chronic anemia, presenting with increased work of breathing.
Wound Location and type/assessment: Patient admitted with: L leg small skin tear, silicone foam in use. Buttocks with blanchable redness, mild MASD, Zinc oxide in use. Heels are boggy but blanchable, student nurse assisted. R hip foam removed, no
redness, intact.
Appetite: Fair.
Pressure redistribution devices in place: On Accumax, easy to turn, pillow with air cushion on top under calves.
Plan: Foams changed to L leg and heels, offloading.
Will confirm orders with hospitalist and updated nurse Will.
Updated care plan and will sign off.
Note to case management of equipment requested for discharge: None.
[2025-04-17] MEDS: TYLENOL 650 MG PO (12:58)
--- NOTE | 2025-04-17 13:32 | W.PN.HOSP.TC ---
Today's Communication/Plan
-
d/c planning
Assessment / Plan
Assessment / Plan
pt is an 89 year old male
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
volume overload but did receive IV lasix--ECHO from 04/03/25 shows decreased EF at 37% with moderate aortic stenosis and Moderate to severe mitral valve regurgitation--cont GDMT as able
Bilateral pleural effusion--Recurrent issue--s/p R thoracentesis 04/12/25 with 1650mls removed, transudative--remains on O2--apprec pulm
Hypokalemia--replete as needed
Acute on chronic hypoxic respiratory failure--s/p Diuresis--Oxygen supplementation to baseline--pt claims he does not wear O2 at home
E. faecalis bacteremia-- diagnosed at [facility]?--On IV ampicillin and ceftriaxone-->through 04/15--finished
History of toxic Metabolic encephalopathy on underlying dementia
Dementia Alzheimer's type--follow--no behaviors noted--CT of the head no acute intracranial abnormalities
Paroxysmal A-fib--Continue beta-blockers--On Plavix--PPM in place
Known COPD, no exacerbation--Bronchodilators as needed
CAD/PVD--On antiplatelets and statins
Essential Hypertension--Continue current antihypertensive
Hyperlipidemia--Continue statin
GERD--On PPI
BPH--On Flomax and finasteride
DVT prophylaxis--Heparin SQ
CODE STATUS--Full code--overall prognosis not great--should revisit [facility]
Anticipated Discharge: 24 - 48 hours
Subjective/Interval History
-
Date of Service: April 17, 2025
pt denies any pain at this time
Objective Data
-
Labs:
Laboratory Results
04/17/25
03:41
WBC 4.8
Hgb 8.9 L
Hct 29.5 L
Plt Count 199
Sodium 139
Potassium 4.0
Chloride 103
Carbon Dioxide 35 H
BUN 9
Creatinine 0.9
Glucose 86
Calcium 8.8
Total Bilirubin 0.4
AST 28
ALT 13
Alkaline Phosphatase 54
Vital Signs:
max temp for 24 hours
04/17/25
03:37
Temp 97.6 F
Vital Signs
Temp Pulse Resp BP Pulse Ox
97.7 F 78 24 105/43 96
04/17/25 11:27 04/17/25 11:27 04/17/25 11:27 04/17/25 11:27 04/17/25 11:27
I&O
04/16/25 04/17/25 04/18/25
06:59 06:59 06:59
Intake Total 510 / 510 860 / 860
Output Total 1250 / 1250 1200 / 1200
Balance -740 / -740 -340 / -340
Review of Systems
-
Unable to obtain full review of systems at this time due to: Dementia
Constitutional: Reports Other (denies pain)
Physical Exam
-
General: Appears Chronically Ill and Cachectic
HEENT: Normocephalic, Atraumatic and Oxygen
Respiratory: Clear to Auscultation; Negative Wheezes or Rhonchi
Cardiac: Regular Rhythm, S1/S2 and Murmur
GI: Soft, Nontender, Nondistended and Normal Bowel Sounds
Musculoskeletal: No Clubbing, No Cyanosis and No Edema
Neuro: Awake
Psych: Calm
--- NOTE | 2025-04-17 14:24 | CM ---
Patient seen at bedside with physician on . Patient daughter indicated that she was not available today and the family was meeting tomorrow to discuss options that they had discovered on their own in email to CM. CM and physician reached out
to to provide update, VM left.
Plan; SNF pending family choices.
[2025-04-17] MEDS: REMERON 7.5 MG PO (20:57)
[2025-04-17] MEDS: FLOMAX 0.4 MG PO (20:57)
[2025-04-17] MEDS: CRESTOR 20 MG PO (20:58)
[2025-04-18] VITALS (7 sets, daily range): BP systolic 96–136; BP diastolic 41–98; PULSE 70; O2SAT 89; BMI 18.4
[2025-04-18] MEDS: TRIPLE PASTE 1 APPLIC TOPICAL ×4 (00:30→23:53)
[2025-04-18] MEDS: SPIRIVA RESPIMAT 2.5 MCG 2 PUFF INH (07:24)
[2025-04-18] MEDS: HEPARIN 5000 UNITS SC ×2 (08:18→20:22)
[2025-04-18] MEDS: OSCAL 500 + D 500 MG PO (08:19)
[2025-04-18] MEDS: THERAGRAN 1 TABLET PO (08:20)
[2025-04-18] MEDS: PROSCAR 5 MG PO (08:20)
[2025-04-18] MEDS: SENOKOT 17.2 MG PO (08:20)
[2025-04-18] MEDS: PLAVIX 75 MG PO (08:20)
[2025-04-18] MEDS: PROTONIX 40 MG PO (08:20)
[2025-04-18] MEDS: ALDACTONE 12.5 MG PO (08:20)
[2025-04-18] MEDS: COREG 3.125 MG PO (08:20)
[2025-04-18] MEDS: LASIX 40 MG PO ×2 (08:21→16:53)
[2025-04-18] MEDS: KCL 20 MEQ PO ×2 (08:21→20:22)
[2025-04-18 08:31] LABS: Hematocrit 33.3 % (39.0-52.0); Hemoglobin 10.1 g/dL (13.0-18.0); Mean Corp Hgb Conc. 30.3 g/dL (33.0-37.0); Mean Corpuscular Volume 88.1 fL (80.0-94.0); Platelet Count 221 10^3/uL (130-400); Red Cell Dist. Width 22.5 % (11.5-14.5)
[2025-04-18 09:25] LABS: Blood Urea Nitrogen 10 mg/dl (9-20); Calcium 8.9 mg/dl (8.4-10.2); Carbon Dioxide 32 mmol/L (22-30); Chloride 101 mmol/L (98-107); Estimated Creatinine Clearance 48 ml/min; Glucose 77 mg/dl (70-99); Magnesium 2.2 mg/dl (1.6-2.3); Potassium 4.7 mmol/L (3.5-5.1); Sodium 136 mmol/L (135-145); eGFR > 60.00
[2025-04-18] MEDS: TYLENOL 650 MG PO (10:43)
--- NOTE | 2025-04-18 12:57 | CM ---
Addendum entered by Deedee Ferrer 04/18/25 15:08:
transfer for tomorrow to [facility]; please call report to [phone]/fax [phone]. CM will email to patient daughter Chucho DONOVAN, reviewed via phone today.
Addendum entered by Deedee Ferrer 04/18/25 14:38:
Family has toured and per facility states that the family toured and would agree to accept placement. patient will need ambulance for transportation. CM will reach out to the family to confirm plan. CM will continue to follow for discharge planning
needs.
Original Note:
[facility] called to state that family had contacted them about placement and they responded that they would have a bed. Per liaison patient family has indicated that the family would confirm with CM. CM will continue to follow for discharge planning
needs.
Plan; SNF
--- NOTE | 2025-04-18 15:15 | W.PN.HOSP.TC ---
Today's Communication/Plan
-
plan for d/c tomorrow to [facility]
updated daughter Chucho by phone
Assessment / Plan
Assessment / Plan
pt is an 89 year old male
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
volume overload but did receive IV lasix--ECHO from 04/03/25 shows decreased EF at 37% with moderate aortic stenosis and Moderate to severe mitral valve regurgitation--cont GDMT as able
Bilateral pleural effusion--Recurrent issue--s/p R thoracentesis 04/12/25 with 1650mls removed, transudative--remains on O2--apprec pulm
urinary retention--had to be st cath'd--now with jacome--cont finasteride/flomax
Hypokalemia--replete as needed
Acute on chronic hypoxic respiratory failure--s/p Diuresis--Oxygen supplementation to baseline--pt claims he does not wear O2 at home
E. faecalis bacteremia-- diagnosed at [facility]?--On IV ampicillin and ceftriaxone-->through 04/15--finished
History of toxic Metabolic encephalopathy on underlying dementia
Dementia Alzheimer's type--follow--no behaviors noted--CT of the head no acute intracranial abnormalities
Paroxysmal A-fib--Continue beta-blockers--On Plavix--PPM in place
Known COPD, no exacerbation--Bronchodilators as needed
CAD/PVD--On antiplatelets and statins
Essential Hypertension--Continue current antihypertensive
Hyperlipidemia--Continue statin
GERD--On PPI
BPH--On Flomax and finasteride
DVT prophylaxis--Heparin SQ
CODE STATUS--Full code--overall prognosis not great--should revisit [facility]
Anticipated Discharge: Within 24 hours
Subjective/Interval History
-
Date of Service: April 18, 2025
pt without c/o--jacome placed overnight
Objective Data
-
Labs:
Laboratory Results
04/18/25
06:02
WBC 5.6
Hgb 10.1 L
Hct 33.3 L
Plt Count 221
Sodium 136
Potassium 4.7
Chloride 101
Carbon Dioxide 32 H
BUN 10
Creatinine 0.9
Glucose 77
Calcium 8.9
Vital Signs:
max temp for 24 hours
04/17/25
23:07
Temp 97.8 F
Vital Signs
Temp Pulse Resp BP Pulse Ox
98.1 F 77 17 136/98 95
04/18/25 11:00 04/18/25 11:00 04/18/25 11:00 04/18/25 11:00 04/18/25 11:00
I&O
04/17/25 04/18/25 04/19/25
06:59 06:59 06:59
Intake Total 860 / 860 1500 / 1500
Output Total 1200 / 1200 1550 / 1550 1100 / 1100
Balance -340 / -340 -50 / -50 -1100 / -1100
Review of Systems
-
All other systems: Reviewed and negative
Physical Exam
-
General: Appears Chronically Ill and Cachectic
HEENT: Normocephalic, Atraumatic and Oxygen
Respiratory: Clear to Auscultation; Negative Wheezes or Rhonchi
Cardiac: Regular Rhythm, S1/S2 and Murmur
GI: Soft, Nontender, Nondistended and Normal Bowel Sounds
Genito-urinary: Jacome
Musculoskeletal: No Clubbing, No Cyanosis and No Edema
Skin: Warm
Neuro: Awake
[2025-04-18] MEDS: COREG PO (20:27)
[2025-04-18] MEDS: CRESTOR 20 MG PO (21:31)
[2025-04-18] MEDS: REMERON 7.5 MG PO (21:31)
[2025-04-18] MEDS: FLOMAX 0.4 MG PO (21:31)
[2025-04-19 03:16] VITALS: BP 116/55
[2025-04-19 06:00] VITALS: BMI 18.2
[2025-04-19 07:00] VITALS: BP 124/75
[2025-04-19] MEDS: HEPARIN 5000 UNITS SC (07:49)
[2025-04-19] MEDS: TRIPLE PASTE 1 APPLIC TOPICAL (07:49)
[2025-04-19] MEDS: COREG 3.125 MG PO (07:50)
[2025-04-19] MEDS: PLAVIX 75 MG PO (07:50)
[2025-04-19] MEDS: THERAGRAN 1 TABLET PO (07:50)
[2025-04-19] MEDS: KCL 20 MEQ PO (07:50)
[2025-04-19] MEDS: PROTONIX 40 MG PO (07:50)
[2025-04-19] MEDS: ALDACTONE 12.5 MG PO (07:51)
[2025-04-19] MEDS: LASIX 40 MG PO (07:51)
[2025-04-19] MEDS: OSCAL 500 + D 500 MG PO (07:51)
[2025-04-19] MEDS: PROSCAR 5 MG PO (07:51)
[2025-04-19] MEDS: SENOKOT 17.2 MG PO (07:51)
[2025-04-19] MEDS: SPIRIVA RESPIMAT 2.5 MCG 2 PUFF INH (07:59)
[2025-04-19] MEDS: MORPHINE SULFATE 1 MG IV (10:30)
[2025-04-19 11:15] VITALS: BP 116/59
[2025-04-19 11:45] VITALS: BP 116/58; O2SAT 96
--- NOTE | 2025-04-19 12:13 | W.PN.HOSP.TC ---
Today's Communication/Plan
-
d/c
Assessment / Plan
Assessment / Plan
pt is an 89 year old male
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
volume overload but did receive IV lasix--ECHO from 04/03/25 shows decreased EF at 37% with moderate aortic stenosis and Moderate to severe mitral valve regurgitation--cont GDMT as able
Bilateral pleural effusion--Recurrent issue--s/p R thoracentesis 04/12/25 with 1650mls removed, transudative--remains on O2--apprec pulm
urinary retention--had to be st cath'd--now with jacome--cont finasteride/flomax--TOV at the facility
Hypokalemia--replete as needed
Acute on chronic hypoxic respiratory failure--s/p Diuresis--Oxygen supplementation to baseline--pt claims he does not wear O2 at home
E. faecalis bacteremia-- diagnosed at [facility]?--On IV ampicillin and ceftriaxone-->through 04/15--finished--PICC removed
History of toxic Metabolic encephalopathy on underlying dementia
Dementia Alzheimer's type--follow--no behaviors noted--CT of the head no acute intracranial abnormalities
Paroxysmal A-fib--Continue beta-blockers--On Plavix--PPM in place
Known COPD, no exacerbation--Bronchodilators as needed
CAD/PVD--On antiplatelets and statins
Essential Hypertension--Continue current antihypertensive
Hyperlipidemia--Continue statin
GERD--On PPI
BPH--On Flomax and finasteride
DVT prophylaxis--Heparin SQ
CODE STATUS--Full code--overall prognosis not great--should revisit GOC
Anticipated Discharge: Today
Subjective/Interval History
-
Date of Service: April 19, 2025
asked by RN for pain meds, pt c/o of all over pain--now pt says 'what pain?'
Objective Data
-
Vital Signs:
max temp for 24 hours
04/18/25
19:30
Temp 98.6 F
Vital Signs
Temp Pulse Resp BP Pulse Ox
98 F 78 16 116/59 94
04/19/25 11:15 04/19/25 11:15 04/19/25 11:15 04/19/25 11:15 04/19/25 11:15
I&O
04/18/25 04/19/25 04/20/25
06:59 06:59 06:59
Intake Total 1500 / 1500 1360 / 1360
Output Total 1550 / 1550 1750 / 1750
Balance -50 / -50 -390 / -390
Review of Systems
-
All other systems: Reviewed and negative
Physical Exam
-
General: Appears Chronically Ill and Cachectic
HEENT: Normocephalic, Atraumatic and Oxygen
Respiratory: Clear to Auscultation; Negative Wheezes or Rhonchi
Cardiac: Regular Rhythm, S1/S2 and Murmur
GI: Soft, Nontender, Nondistended and Normal Bowel Sounds
Genito-urinary: Jacome
Musculoskeletal: No Clubbing, No Cyanosis and No Edema
Neuro: Awake
Psych: Apparent Dementia
--- NOTE | 2025-04-19 12:47 | CM ---
CM reviewed chart, reviewed with Hospitalist.
Patient for d.c today, transport to [facility] 3:00 p.m.
, Johanna, updated with transport time.
Updates to [place] with transport time.
CM will continue to follow for all discharge planning needs.
Plan; [facility], 3:00 p.m[address]
[facility]:
Report to [phone]'
[2025-04-19] MEDS: FLUZONE HIGH-DOSE 2025-26 0.5 ML IM (14:25)
[2025-04-19 14:28] VITALS: BP 112/62
--- NOTE | 2025-04-19 15:44 | W.DCSUMMARY ---
Discharge Summary
Discharge Data
Date of Admission: 04/12/25
Date of Discharge: 04/19/25
-
Pending Results: No
Hospital Course
Primary care physician : Cary Chauhan
Principal Discharge diagnosis : Acute on chronic heart failure with reduced ejection fraction exacerbation, bilateral pleural effusions, urinary retention
Chronic Discharge diagnosis : Acute on chronic hypoxemic respiratory failure, history of Enterococcus faecalis bacteremia, underlying Alzheimer's dementia with toxic metabolic encephalopathy, paroxysmal atrial fibrillation, chronic obstructive
pulmonary disease, coronary artery disease with peripheral vascular disease, essential hypertension, hyperlipidemia, gastroesophageal reflux disease, benign prostatic hyperplasia
Hospital Course : Patient was an 89-year-old male who presented from [facility] with increased shortness of breath. Patient apparently had a recent admission from April 02 through April 06, 2025 for heart failure at that time
with a right pleural effusion status post thoracentesis on April 03, 2025. Lasix was increased from 40 mg twice daily with a discharge weight at that time of 59 to 61 kg. He was also on ampicillin and ceftriaxone through 10 5 4 Enterobacter
faecalis bacteremia diagnosed at [place]. He was also noted to be anemic and was referred to outpatient GI. With all of these complaints. Patient was admitted.
Problem #1: Acute on chronic heart failure with reduced ejection fraction exacerbation. Patient also has moderate aortic stenosis and moderate to severe mitral regurgitation with mild tricuspid regurgitation. Patient told me that he was not on
oxygen at home however there is documentation in the chart which states that he is on 2 L chronically. He was found to be in volume overload and did receive IV Lasix. Echocardiogram showed decreased ejection fraction at 37% which was done on
April 03, 2025. After diuresis, cardiology interrogated his device which did not show any volume overload. He is now on oral Lasix and Aldactone and will remain on that moving forward.
Problem #2: Bilateral pleural effusions. Patient had thoracentesis on April 03, 2025 as indicated above. He had another thoracentesis on April 12, 2025 with 1650 mL removed which was transudative in nature.
Problem #3: Urinary retention. Patient had difficulty urinating and need to be straight cath'd. He was complaining of pain all over which improved after bladder drainage. Unfortunately, patient did require Dunn catheter. His finasteride and
Flomax were continued. Because he is not as mobile here in the hospital it is recommended that he will be discharged with the Dunn catheter and the trial of voiding should be happening at the facility when he is more mobile.
Problem #4: All other medical issues. These include Acute on chronic hypoxemic respiratory failure, history of Enterococcus faecalis bacteremia, underlying Alzheimer's dementia with toxic metabolic encephalopathy, paroxysmal atrial fibrillation,
chronic obstructive pulmonary disease, coronary artery disease with peripheral vascular disease, essential hypertension, hyperlipidemia, gastroesophageal reflux disease, benign prostatic hyperplasia. These medical issues were stable during his
hospitalization. Medications were continued as able. In regards to the Enterococcus faecalis bacteremia, he completed his course of antibiotics here. They were stopped. Tunneled PICC line was removed.
Patient is stable for discharge to his rehab at this time. If there are any questions regarding this dictation or his hospital stay, please do not hesitate to call. Our office number is [phone].
Time for discharge 37 minutes.
Discharge Plan
-
Patient Disposition: Retirement/SNF
Discharge Diagnosis/Procedures: Enterococcus faecalis bacteremia finished antibiotics 04/15/2025, underlying Alzheimer's dementia with toxic metabolic encephalopathy, paroxysmal atrial fibrillation, bilateral pleural effusions status post
thoracentesis, urinary retention with Dunn catheter, acute on chronic hypoxemic respiratory failure, acute on chronic heart failure with reduced ejection fraction/Moderate aortic stenosis with moderate to severe mitral regurgitation and mild
tricuspid regurgitation, chronic obstructive pulmonary disease, essential hypertension, gastroesophageal reflux disease, hyperlipidemia
Condition: Fair
Diet: As tolerated and Regular
Activity: As tolerated
Driving Restrictions: No driving
Bathing Restrictions: None
Activity Restrictions/Additional Instructions:
Wound Care Instructions
L leg: clean with soap and water, silicone foam change q 3 days until healed
moisturize legs daily after bathing
Buttocks: zinc oxide after cleaning daily and prn soilage
can do trial of voiding at rehab once he is more active
Instructions: *PCP/Other Rn Neurology Heart Failure Instructions
Referrals:
Cary Chauhan MD [Family Provider, Internal Medicine] - in less than 1 week
Prescriptions:
New
spironolactone 25 mg Tablet
12.5 mg PO DAILY Qty: 0 0RF
Continued
sennosides [senna] 8.6 mg Tablet
17.2 mg PO DAILY
acetaminophen [Tylenol] 325 mg Tablet
650 mg PO Q4HPRN PRN (Reason: mild pain)
therapeutic multivitamin Tablet
1 tab PO DAILY
clopidogrel [Plavix] 75 mg Tablet
75 mg PO DAILY
carvedilol [Coreg] 3.125 mg Tablet
3.125 mg PO BID
magnesium hydroxide [Milk of Magnesia] 400 mg/5 mL Suspension
2,400 mg PO [id number] PRN (Reason: constipation)
bisacodyl [Dulcolax (bisacodyl)] 10 mg Suppository
10 mg HI DAILYPRN PRN (Reason: if no bm aftr mom)
pantoprazole [Protonix] 40 mg Tablet,Delayed Release (Dr/Ec)
40 mg PO DAILY
Fleet Enema 19-7 gram/118 mL Enema
118 ml HI DAILYPRN PRN (Reason: if no bm aftr dulcoalx)
albuterol sulfate 90 mcg/actuation Hfa Aerosol Inhaler
2 puff INHALATION R Q4HPRN PRN (Reason: sob)
finasteride 5 mg Tablet
5 mg PO DAILY
rosuvastatin [Crestor] 20 mg Tablet
20 mg PO HS
tiotropium bromide 18 mcg Capsule, W/Inhalation Device
1 cap INHALATION R DAILY
mirtazapine 7.5 mg Tablet
7.5 mg PO HS
calcium carbonate-vitamin D3 [Calcium 500 + D] 500 mg-10 mcg (400 unit) Tablet
1 tab PO DAILY
lubiprostone 8 mcg Capsule
8 mcg PO SUTUTHSA@1000
lubiprostone 8 mcg Capsule
8 mcg PO MOWEFR@0800,1900
[place] Protect (zinc oxide) 12 % Cream
1 applic TOPICAL Q8
potassium chloride 20 mEq Tablet Extended Release
20 meq PO DAILY
furosemide 40 mg Tablet
40 mg PO BID AT 0800,1600 30 Days Qty: 60 0RF
tamsulosin [Flomax] 0.4 mg Capsule
0.4 mg PO HS Qty: 0 0RF
Discontinued
ceftriaxone 2 gram Recon Soln
2 g IV BID
Rx Instructions:
take until 04/16/25
ampicillin sodium 2 gram Recon Soln
2 g IV Q4H
Rx Instructions:
take until 04/16/25
Discharge Orders:
Discharge Patient (As Directed); Ordered 04/19/25
Ordered By: Chantale Trujillo
Discharge Date and Time
Discharge Date/Time: 04/19/25 15:04
Print Language: NEPALI
== END 2025-04-19 15:04 | DRG 186 ==
LOC: 4 WEST ACU 13:36
PROVIDERS: Clinical Nurse Specialist Family Health; Internal Medicine Cardiovascular Disease; Physician Assistant; Radiology Diagnostic Radiology; Radiology Vascular & Interventional Radiology; ADMITTING PHYSICIAN Hospitalist; ATTENDING PHYSICIAN Internal Medicine; CONSULT PHYSICIAN Internal Medicine Cardiovascular Disease; CONSULT PHYSICIAN Internal Medicine Critical Care Medicine; EMERGENCY PHYSICIAN Emergency Medicine; FAMILY PHYSICIAN Internal Medicine
PROC: 0W993ZZ Drainage of Right Pleural Cavity, Percutaneous Approach (ICD-10-PCS; 2025-04-12)
PROC: 4B02XTZ Measurement of Cardiac Defibrillator, External Approach (ICD-10-PCS; 2025-04-14)
PROC: 0JPV3XZ Removal of Tunneled Vascular Access Device from Upper Extremity Subcutaneous Tissue and Fascia, Percutaneous Approach (ICD-10-PCS; 2025-04-17)
DX: J90 Pleural effusion, not elsewhere classified (principal); I50.23 Acute on chronic systolic (congestive) heart failure; J96.21 Acute and chronic respiratory failure with hypoxia; J44.0 Chronic obstructive pulmonary disease with (acute) lower respiratory infection; I13.0 Hypertensive heart and chronic kidney disease with heart failure and stage 1 through stage 4 chronic kidney disease, or unspecified chronic kidney disease; F02.84 Dementia in other diseases classified elsewhere, unspecified severity, with anxiety; E44.0 Moderate protein-calorie malnutrition; Z68.1 Body mass index [BMI] 19.9 or less, adult; E46 Unspecified protein-calorie malnutrition; E87.6 Hypokalemia; N18.30 Chronic kidney disease, stage 3 unspecified; E11.22 Type 2 diabetes mellitus with diabetic chronic kidney disease; E11.51 Type 2 diabetes mellitus with diabetic peripheral angiopathy without gangrene; I25.10 Atherosclerotic heart disease of native coronary artery without angina pectoris; G30.9 Alzheimer's disease, unspecified; K21.9 Gastro-esophageal reflux disease without esophagitis; K59.09 Other constipation; J84.10 Pulmonary fibrosis, unspecified; L89.151 Pressure ulcer of sacral region, stage 1; L89.621 Pressure ulcer of left heel, stage 1; L89.611 Pressure ulcer of right heel, stage 1; Z11.52 Encounter for screening for COVID-19; Z87.891 Personal history of nicotine dependence; D63.1 Anemia in chronic kidney disease; Z79.02 Long term (current) use of antithrombotics/antiplatelets; Z79.4 Long term (current) use of insulin; Z79.899 Other long term (current) drug therapy
CPT/HCPCS: 32555; 36589; 71045; 71275; 80048; 80053; 81003; 81015; 82607; 82728; 82746; 82945; 83540; 83550; 83615; 83735; 83880; 84157; 84484; 85025; 85027; 87015; 87070; 87205; 87811; 89051; 90662; 93005; 94640; 97162; 97166; 97530; 97535; 99285; G0008; Q9967